=== PATIENT | male | born 1945 | race Caucasian/White ===

== ENCOUNTER → 2016-07-22 | Outpatient (CLI) | payer MEDICARE, BC ==
[2016-07-22 10:57] LABS: ALT 34 U/L (21-72); AST 24 U/L (17-59); Cholesterol 194 mg/dL (<200); Creatine Kinase 57 U/L (55-170); HDL Cholesterol 41 mg/dL (40-60); Triglycerides 383 mg/dL (<150)
== END | disposition home or self-care (01) ==
LOC: LABWHC1 09:44
PROVIDERS: ATTEND Internal Medicine Cardiovascular Disease
DX: E78.2 Mixed hyperlipidemia (principal)
CPT/HCPCS: 36415; 80061; 82550; 84450; 84460

== ENCOUNTER → 2016-08-12 | Outpatient (CLI) | payer MEDICARE, BC ==
--- NOTE | 2016-08-12 16:12 | US ---
EXAMINATION TYPE: US kidneys/renal and bladder DATE OF EXAM: 08/12/2016 2:54 PM COMPARISON: US on PACS CLINICAL HISTORY: N17.9 ACUTE KIDNEY FAILURE. Abnormal bloodwork EXAM MEASUREMENTS: Right Kidney: 11.7 x 6.2 x 5.3 cm cm Left Kidney: 11.4 x 5.9 x 5.8 cm cm Post Void Residual Volume: bladder not filled for exam mL TECHNOLOGIST IMPRESSION: wnl Right Kidney: decreased renal cortex Left Kidney: decreased renal cortex, upper pole cyst = 1.2 x 1.0 x 1.1 cm Bladder: not filled for exam. Not seen Bilateral Jets seen: no 2 splenic cysts noted 0.8 cm and 0.6 cm There is no evidence for hydronephrosis at this point in time. No nephrolithiasis is seen. No brittani s are identified. The urinary bladder is anechoic. Bilateral ureteral jets are seen. Note is made of lobation, a normal variant. IMPRESSION: 1. Small upper pole left renal cortical cyst. 2. Splenic cyst. 3. Somewhat limited urinary bladder evaluation.
== END | disposition home or self-care (01) ==
LOC: RADUSWWP 14:28
PROVIDERS: ATTEND Family Medicine
DX: N28.1 Cyst of kidney, acquired (principal); D73.4 Cyst of spleen
CPT/HCPCS: 76770

== ENCOUNTER 2016-08-15 13:57 | Inpatient (IN) | payer MEDICARE, BC ==
[2016-08-15] MEDS ORDERED: SODIUM CHLORIDE 0.9% 1,000 ML IV STA (16:13)
[2016-08-15] MEDS ORDERED: ONDANSETRON 4 MG/2 ML VIAL IVP STA (16:13)
--- NOTE | 2016-08-15 16:19 | ED ---
Weakness HPI - General Chief complaint: Weakness Stated complaint: Weak/Not eating Time Seen by Provider: 08/15/16 15:56 Source: patient, family, RN notes reviewed Mode of arrival: ambulatory Limitations: no limitations - History of Present Illness Initial comments: She is a 70-year-old male with chief complaint of weakness. Patient reports that he has been feeling weak for the past few months. He also reports that he has not been wanting to eat. Patient reports that since he has had approximately 50 pound weight loss due to the fact that he has no appetite. He reports that there is no pain with eating however he just feels nauseated and does not like the taste of food. Patient reports that he has medical history significant for bipolar disorder, high blood pressure. Patient reports that he hasn't no pain at this time. Patient denies any pain with eating. He reports that the last time he ate was a few days ago and was able to hold on a pork chop. Patient reports that he had a small bowel movement after eating that. Patient reports that for the past few days and weeks he is only been able to tolerate liquid diet which includes boost and fruit juices. Patient reports that he in general feels extremely fatigued and weak. He reports that he is able to ambulate. Patient denies any recent fever, chills, shortness of breath, chest pain, back pain, abdominal pain, dysuria or hematuria, constipation or diarrhea, headaches or visual changes, or any other current symptoms - Related Data Home Medications Medication Instructions Recorded Confirmed Aspirin 325 mg PO DAILY 09/20/15 08/15/16 Olmesartan/Hydrochlorothiazide 1 tab PO DAILY 09/20/15 08/15/16 [Benicar Hct 40-12.5 mg Tablet] ARIPiprazole [Abilify] 10 mg PO HS 08/15/16 08/15/16 Divalproex ER [Depakote ER] 1,000 mg PO HS 08/15/16 08/15/16 Mirabegron [Myrbetriq] 50 mg PO DAILY 08/15/16 08/15/16 [place]-3 Fatty Acids/Fish Oil [Fish 2 cap PO DAILY 08/15/16 08/15/16 Oil 1,000 mg Softgel] Simvastatin [Zocor] 40 mg PO HS 02/03/17 02/03/17 Allergies Allergy/AdvReac Type Severity Reaction Status Date / Time donepezil [From Aricept] AdvReac Unknown Verified 08/15/16 16:22 Review of Systems ROS Statement: Those systems with pertinent positive or pertinent negative responses have been documented in the HPI. ROS Other: All systems not noted in ROS Statement are negative. Past Medical History Past Medical History: Diabetes Mellitus, Hyperlipidemia, Hypertension History of Any Multi-Drug Resistant Organisms: None Reported Past Surgical History: Hernia Repair, Joint Replacement, Orthopedic Surgery Additional Past Surgical History / Comment(s): nasal, bilateral knee Past Psychological History: Anxiety, Depression Smoking Status: Former smoker Past Alcohol Use History: None Reported Past Drug Use History: None Reported General Exam - General Exam Comments Initial Comments: Patient is a pleasant 70-year-old male. He is on appear to be in any acute distress. Limitations: no limitations General appearance: alert, in no apparent distress Head exam: Present: atraumatic, normocephalic, normal inspection Eye exam: Present: normal appearance, PERRL, EOMI. Absent: scleral icterus, conjunctival injection, periorbital swelling ENT exam: Present: normal exam, mucous membranes moist Neck exam: Present: normal inspection. Absent: tenderness, meningismus, lymphadenopathy Respiratory exam: Present: normal lung sounds bilaterally. Absent: respiratory distress, wheezes, rales, rhonchi, stridor Cardiovascular Exam: Present: regular rate, normal rhythm, normal heart sounds. Absent: systolic murmur, diastolic murmur, rubs, gallop, clicks GI/Abdominal exam: Present: soft, tenderness (mild lower quadrant tenderness ), normal bowel sounds. Absent: distended, guarding, rebound, rigid Extremities exam: Present: normal inspection, full ROM, normal capillary refill. Absent: tenderness, pedal edema, joint swelling, calf tenderness Back exam: Present: normal inspection Neurological exam: Present: alert, oriented X3, CN II-XII intact Psychiatric exam: Present: normal affect, normal mood Skin exam: Present: warm, dry, intact, normal color. Absent: rash Course Vital Signs 08/15/16 08/15/16 08/15/16 15:37 16:54 17:54 Temperature 97.0 F L Pulse Rate 53 L 58 L 52 L Respiratory 17 18 Rate Blood Pressure 119/56 116/58 O2 Sat by Pulse 96 98 Oximetry 08/15/16 18:04 Temperature Pulse Rate 54 L Respiratory Rate Blood Pressure O2 Sat by Pulse Oximetry EKG Findings - EKG Comments: EKG Findings:: EKG shows sinus bradycardia ventricular rate is 47 bpm. DE interval 192 ms. QRS duration 100 ms. QT/QTc is 428/[address] elevation or T-wave inversion. Medical Decision Making - Medical Decision Making Patient is a 70-year-old male with chief complaint of weakness and fatigue for the past 3 months. Patient reports has not been able to eat anything due to poor appetite. Patient reports she's lost approximately 50 pounds. He denies any pain with eating. He reports that sometimes when he is due to the lack of appetite he has vomited. Patient denies any history of GERD. Patient's lab reveal elevated potassium at 6.1. BUN 118 creatinine is 3.96. Magnesium 2.4. These are all dramatically elevated in the past 2 weeks from his previous lab work. Patient will be started on 30mg Kayexalate by mouth as well as albuterol breathing treatment her hyperkalemia. Patient will also be rehydrated with 2 L of normal saline and placed on a maintenance rate. Patient will be admitted at this time and consults to nephrology for acute kidney injury. I discussed the case with Dr. Carlson, who discussed this work which the nurse practitioner he'll be admitted for Dr. Truong. Patient will be admitted to Dr. Truong and consults with Dr. Christianson. - Lab Data Result diagrams: 08/15/16 16:46 08/15/16 16:46 Lab Results 08/15/16 08/15/16 08/15/16 Range/Units 16:46 16:46 16:46 WBC 5.3 (3.8-10.6) k/uL RBC 3.92 L (4.30-5.90) m/uL Hgb 12.0 L (13.0-17.5) gm/dL Hct 35.8 L (39.0-53.0) % MCV 91.2 (80.0-100.0) fL MCH 30.6 (25.0-35.0) pg MCHC 33.5 (31.0-37.0) g/dL RDW 12.5 (11.5-15.5) % Plt Count 103 L (150-450) k/uL Neutrophils % 73 % Lymphocytes % 19 % Monocytes % 5 % Eosinophils % 1 % Basophils % 0 % Neutrophils # 3.9 (1.3-7.7) k/uL Lymphocytes # 1.0 (1.0-4.8) k/uL Monocytes # 0.3 (0-1.0) k/uL Eosinophils # 0.1 (0-0.7) k/uL Basophils # 0.0 (0-0.2) k/uL PT (9.0-12.0) sec INR (<1.1) APTT (22.0-30.0) sec Sodium 140 (137-145) mmol/L Potassium 6.1 H (3.5-5.1) mmol/L Chloride 101 (98-107) mmol/L Carbon Dioxide 26 (22-30) mmol/L Anion Gap 13 mmol/L BUN 118 H* (9-20) mg/dL Creatinine 3.96 H (0.66-1.25) mg/dL Est GFR (MDRD) Af Amer 18 (>60 ml/min/1.73 sqM) Est GFR (MDRD) Non-Af 15 (>60 ml/min/1.73 sqM) Glucose 88 (74-99) mg/dL Calcium 9.6 (8.4-10.2) mg/dL Phosphorus 4.5 (2.5-4.5) mg/dL Magnesium 2.4 H (1.6-2.3) mg/dL Total Bilirubin 0.7 (0.2-1.3) mg/dL AST 25 (17-59) U/L ALT 30 (21-72) U/L Alkaline Phosphatase 52 (38-126) U/L Total Creatine Kinase 46 L (55-170) U/L CK-MB (CK-2) 1.0 (0.0-2.4) ng/mL CK-MB (CK-2) Rel Index 2.2 Troponin I <0.012 (0.000-0.034) ng/mL NT-Pro-B Natriuret Pep pg/mL Total Protein 6.9 (6.3-8.2) g/dL Albumin 4.1 (3.5-5.0) g/dL Lipase 97 (23-300) U/L 08/15/16 08/15/16 Range/Units 16:46 16:46 WBC (3.8-10.6) k/uL RBC (4.30-5.90) m/uL Hgb (13.0-17.5) gm/dL Hct (39.0-53.0) % MCV (80.0-100.0) fL MCH (25.0-35.0) pg MCHC (31.0-37.0) g/dL RDW (11.5-15.5) % Plt Count (150-450) k/uL Neutrophils % % Lymphocytes % % Monocytes % % Eosinophils % % Basophils % % Neutrophils # (1.3-7.7) k/uL Lymphocytes # (1.0-4.8) k/uL Monocytes # (0-1.0) k/uL Eosinophils # (0-0.7) k/uL Basophils # (0-0.2) k/uL PT 10.7 (9.0-12.0) sec INR 1.1 (<1.1) APTT 22.7 (22.0-30.0) sec Sodium (137-145) mmol/L Potassium (3.5-5.1) mmol/L Chloride (98-107) mmol/L Carbon Dioxide (22-30) mmol/L Anion Gap mmol/L BUN (9-20) mg/dL Creatinine (0.66-1.25) mg/dL Est GFR (MDRD) Af Amer (>60 ml/min/1.73 sqM) Est GFR (MDRD) Non-Af (>60 ml/min/1.73 sqM) Glucose (74-99) mg/dL Calcium (8.4-10.2) mg/dL Phosphorus (2.5-4.5) mg/dL Magnesium (1.6-2.3) mg/dL Total Bilirubin (0.2-1.3) mg/dL AST (17-59) U/L ALT (21-72) U/L Alkaline Phosphatase (38-126) U/L Total Creatine Kinase (55-170) U/L CK-MB (CK-2) (0.0-2.4) ng/mL CK-MB (CK-2) Rel Index Troponin I (0.000-0.034) ng/mL NT-Pro-B Natriuret Pep 153 pg/mL Total Protein (6.3-8.2) g/dL Albumin (3.5-5.0) g/dL Lipase (23-300) U/L - Radiology Data Radiology results: report reviewed KUB and chest x-ray showed no evidence of any acute abnormalities. These were read by Dr. Peña. Disposition Clinical Impression: Bradycardia, Hyperkalemia, Acute kidney failure, Weakness Disposition: ADMITTED IP TO THIS HOSP Condition: Stable Time of Disposition: 18:18
[2016-08-15 17:01] LABS: Basophils % (A) 0 %; CH 31.1; CHCM 34.2; Eosinophils # (A) 0.1 k/uL (0-0.7); Eosinophils % (A) 1 %; HCT 35.8 % (39.0-53.0); HDW 2.65; Luc % (Auto) 2; Lymphocytes % (A) 19 %; MCH 30.6 pg (25.0-35.0); MCHC 33.5 g/dL (31.0-37.0); MCV 91.2 fL (80.0-100.0); Mean Platelet Volume 8.5; Monocytes # (A) 0.3 k/uL (0-1.0); Monocytes % (A) 5 %; Neutrophils # (A) 3.9 k/uL (1.3-7.7); Neutrophils % (A) 73 %; RBC 3.92 m/uL (4.30-5.90); RDW 12.5 % (11.5-15.5); WBC 5.3 k/uL (3.8-10.6); WBC (Perox) 5.48
[2016-08-15 17:07] LABS: INR 1.1 (<1.1); Partial Thromboplastin Time 22.7 sec (22.0-30.0); Prothrombin Time 10.7 sec (9.0-12.0)
[2016-08-15 17:12] LABS: Calcium 9.6 mg/dL (8.4-10.2); Magnesium 2.4 mg/dL (1.6-2.3); Phosphorous 4.5 mg/dL (2.5-4.5); Potassium 6.1 mmol/L (3.5-5.1); Total Bilirubin 0.7 mg/dL (0.2-1.3); Total Protein 6.9 g/dL (6.3-8.2)
[2016-08-15] MEDS ORDERED: SODIUM POLYSTYRENE SULFONATE 15 GM/60 ML BOTTLE PO STA ×2 (17:18→18:07)
[2016-08-15] MEDS ORDERED: SODIUM CHLORIDE 0.9% 1,000 ML IV ONE (17:19)
[2016-08-15] MEDS ORDERED: ALBUTEROL NEBULIZED 2.5 MG/3 ML INHALATION STA (17:19)
[2016-08-15 17:25] LABS: Creatine Kinase 46 U/L (55-170)
[2016-08-15 17:38] LABS: Troponin I <0.012 ng/mL (0.000-0.034)
[2016-08-15] MEDS ORDERED: HYDROmorphone 1 MG/ML 1 ML SYRINGE IV PRN (17:55)
[2016-08-15] MEDS ORDERED: ALBUTEROL NEB (CONC) 2.5 MG/0.5 ML INHALATION ONE (17:55)
[2016-08-15] MEDS ORDERED: NALOXONE 0.4 MG/ML 1 ML VIAL IV PRN (17:55)
--- NOTE | 2016-08-15 18:11 | XR ---
EXAMINATION TYPE: XR chest 2V DATE OF EXAM: 08/15/2016 5:23 PM COMPARISON: November 29, 2015 HISTORY: Generalized weakness with weight loss TECHNIQUE: Frontal and lateral views of the chest are obtained. FINDINGS: There is scattered nonspecific opacities but no definite focal air space opacity. There is no pleural effusion or pneumothorax seen. The cardiac silhouette size is within normal limi ts. The osseous structures are intact. IMPRESSION: No acute cardiopulmonary process.
--- NOTE | 2016-08-15 18:13 | XR ---
EXAMINATION TYPE: XR KUB DATE OF EXAM: 08/15/2016 5:23 PM COMPARISON: NONE HISTORY: Weakness and weight loss TECHNIQUE: Two standing upright APviews FINDINGS: No bowel obstruction. No pneumatosis or pneumoperitoneum. No evident mass or mass effect. S keletal structures are unremarkable for acute process. The visualized lung bases and pleural spaces are negative. IMPRESSION: No acute radiographic process.
[2016-08-15] MEDS: SODIUM CHLORIDE 0.9% 1,000 ML IV SCH (18:20)
[2016-08-15 21:55] VITALS: BMI 32.9
[2016-08-15] MEDS: ONDANSETRON 4 MG/2 ML VIAL IVP SCH (22:08)
[2016-08-15] MEDS: DIVALPROEX ER 500 MG TAB.ER.24H PO SCH (22:09)
[2016-08-15] MEDS: ATORVASTATIN 20 MG TAB PO SCH (22:09)
[2016-08-15] MEDS: ARIPiprazole 10 MG TAB PO SCH (22:09)
[2016-08-16 02:24] LABS: Appearance,Urine Clear (Clear); Bilirubin,Urine Negative (Negative); Glucose,Urine (UA) Negative (Negative); Ketones,Urine Trace (Negative); Leukocyte Esterase,Urine Negative (Negative); Nitrite,Urine Negative (Negative); Protein,Urine Negative (Negative); Specific Gravity,Urine 1.014 (1.001-1.035); UA Billing (MACRO vs. MICRO) CHEM; Urobilinogen,Urine <2.0 mg/dL (<2.0)
[2016-08-16] MEDS: ONDANSETRON 4 MG/2 ML VIAL IVP SCH ×4 (06:06→17:49)
[2016-08-16] MEDS: SODIUM CHLORIDE 0.9% 1,000 ML IV SCH ×2 (06:06→17:49)
[2016-08-16 07:17] LABS: Calcium 8.6 mg/dL (8.4-10.2); Magnesium 2.2 mg/dL (1.6-2.3); Potassium 4.9 mmol/L (3.5-5.1)
[2016-08-16] MEDS: HYDROCHLOROTHIAZIDE 12.5 MG CAP PO SCH (08:14)
[2016-08-16] MEDS: OXYBUTYNIN 10 MG TAB.ER.24 PO SCH (08:14)
[2016-08-16] MEDS: ENOXAPARIN 30 MG/0.3 ML SYRINGE SQ SCH (08:15)
[2016-08-16] MEDS: PANTOPRAZOLE 40 MG/10 ML VIAL IV SCH (08:15)
[2016-08-16] MEDS: ASPIRIN 325 MG TAB PO SCH (08:15)
[2016-08-16] MEDS ORDERED: NON-FORMULARY DRUG (Omega-3 Fatty Acids/Fish Oil [Fish Oil 1,000 Mg Softgel] 2 CAP) PO SCH (09:00)
[2016-08-16] MEDS ORDERED: LOSARTAN 50 MG TAB PO SCH (09:00)
--- NOTE | 2016-08-16 11:28 | CONS ---
DATE OF CONSULTATION: REASON FOR CONSULTATION: Renal failure. HISTORY OF PRESENT ILLNESS: Patient is a 70-year-old white male who is hard of hearing. He has a history of hypertension, dyslipidemia, who was complaining of weakness going on for a few days. Patient had not been eating much. He had significant weight loss as well. He denied any prior history of kidney disease. Patient did admit to use of Motrin for arthritis prior to admission. Serum creatinine was at 3.96 mg/dL. Currently patient is maintained on IV fluids. His creatinine is down to 2.98. Review of previous labs shows a creatinine of 2.5 on 07/30/2016 and in October 2015 his serum creatinine was at 1.14. The patient was also hyperkalemic with a potassium of 6.1, which is now down to 4.9. He has been voiding clear yellow urine. Urinalysis is quite unremarkable. PAST MEDICAL HISTORY: Hypertension, dyslipidemia, diabetes, osteoarthritis, depression. PAST SURGICAL HISTORY: Hernia repair, knee arthroplasty. SOCIAL HISTORY: The patient is a former smoker. No history of drug abuse or alcohol abuse. REVIEW OF SYSTEMS: As per HPI. Other systems negative. Medications at home included: Benicar, hydrochlorothiazide, Abilify, Depakote, Zocor, omega-3 fatty acids/fish oil. ALLERGIES INCLUDE ARICEPT. On examination, the patient is comfortable, awake. He is not in any acute distress. He is hard of hearing blood pressure is 131/56, heart rate 51 per minute. He is afebrile. Examination of the heart S1 and S2. Examination of the lungs: Bilateral breath sounds are heard. Abdomen is soft, nontender. Examination of lower extremities shows no evidence of edema. SUPERVISOR ENGINE ASSEMBLY exam is grossly intact. Patient is moving all 4 extremities. Labs show sodium 143, potassium 4.9, BUN 100, serum creatinine 2.98. Hemoglobin 12.0 g/dL. UA shows trace ketones. Chest x-ray is unremarkable. ASSESSMENT: 1. Acute kidney injury, prerenal, currently improving with IV hydration. No evidence of obstructive uropathy. An ultrasound of the kidneys will be ordered as well. Patient is advised to avoid the use of Motrin which definitely contributed to the worsening of his renal function. Hold off on ALHAJI inhibitors for now. I will hold Cozaar. We can likely resume it at the time of discharge if renal function is normal. 2. Hyperkalemia associated with acute kidney injury and use of ALHAJI inhibitor and NSAIDs in the form of Motrin, currently improved. Discontinue Cozaar for now. Repeat labs in the a.m. continue IV fluids. 3. Hypertension, currently fairly well controlled. 4. Dyslipidemia. PLAN: Hold Cozaar, continue IV fluids. Check ultrasound of the kidneys and repeat labs in the a.m. Thank you for this consultation. Will continue to follow the patient with you during his hospitalization.
[2016-08-16] MEDS: ACETAMINOPHEN TAB 325 MG TAB PO PRN (13:48)
--- NOTE | 2016-08-16 19:46 | HP ---
DATE OF ADMISSION: 08/15/2016 CHIEF COMPLAINT: Decreased appetite and generalized weakness. HISTORY OF PRESENT ILLNESS: Mr. Rivas is a 70-year-old male with a past medical history of hypertension, dyslipidemia, diabetes mellitus, coming into the hospital complaining of generalized weakness that has been going on since a few months. As per his , she states that he has not been eating or drinking well for the past 3 months and for the past 2 weeks he has been only eating half a piece of toast and hardly drinking anything and progressively his weakness has worsened and so she brought in to the hospital for further evaluation. Patient had a fall a few months back and injured his coccyx for which he has been taking Motrin and Tylenol on and off. The patient denies having any complaints of urinary tract infection. No increased frequency, dysuria or hematuria. Denies having any abdominal pain, nausea, vomiting, or diarrhea. As per his , the patient's gait has been changing and also he has been having tremors for the past few weeks which have been worsened. Patient also lost a few pound in the past 13 months but he could not find out how much he lost. At the time of admission, the patient blood work done showing an elevated creatinine at 3.96 and his last ( ) one year back was in the range of 1.14. He also had hyperkalemia of potassium level of 6.1. Patient had been given IV fluids and his BUN and creatinine trended down as well as his potassium. Nephrology and Dr. Christianson is on board and following the patient. REVIEW OF SYSTEMS: All 13 review of systems are done and negative except for the ones mention bowel. Past medical history is significant for hypertension, dyslipidemia, diabetes mellitus, depression, osteoarthritis. PAST SURGICAL HISTORY: Hernia repair, knee arthroplasty. ALLERGIES: DONEPEZIL. Patient's home medications: 1. Benicar 40/12.5, 1 tablet p.o. daily. 2. Aspirin 320 mg p.o. daily. 3. Miribichrone 50 mg p.o. daily. 4. Abilify 10 mg p.o. q.h.s. 5. Depakote 1000 mg p.o. q.h.s. 6. [place]-3 fatty acids 2 capsules p.o. daily. 7. Zocor 40 mg p.o. q.h.s. SOCIAL HISTORY: Former smoker. Occasional alcohol. FAMILY HISTORY: No family history of Parkinson disease. Family history positive for hypertension and diabetes. On examination, patient's vital signs temperature 98.1, heart rate 50 to 55 respiratory rate 16, blood pressure 136/70, saturating at 96% on room air. GENERAL EXAMINATION: Elderly female, lying in bed, appears to be in no acute distress. HEAD: Atraumatic, nontraumatic. EYES: Pupils round and reactive to light. NECK: No JVD. No thyromegaly. CARDIOVASCULAR: S1, S2 heard. No additional sounds. LUNGS: Bilateral breath sounds are positive. No wheezes or crackles. ABDOMEN: Soft, nontender. Bowel sounds positive. EXTREMITIES: No edema. No cyanosis, no clubbing. Peripheral pulses are felt. BUSINESS CONTROLLER: Alert, awake, oriented x3. The patient has some intentional tremors. When I made him write his name, he could not write his name. The patient is hard of hearing. No focal or neurological deficits noticed. SKIN: No rashes. MUSCULOSKELETAL: No joint swelling or deformity. PSYCHIATRIC: Appropriate mood and affect. Patient's labs: White count of 5.3, hemoglobin is 12, platelets of 103. Sodium 142, potassium 4.9, chloride 109, bicarb 21, BUN 100, creatinine 2.98. Urine shows trace ketones. Patient had a chest x-ray showing no acute cardiopulmonary process. KUB showing no acute radiographic process. ASSESSMENT AND PLAN: 1. Acute kidney injury, most likely prerenal and we will continue with IV hydration. Creatinine is improving and avoid nephrotoxins and advised to discontinue Motrin use and hold ALHAJI inhibitors for now. 2. Hyperkalemia secondary to acute kidney injury. 3. Gait abnormality with tremors most likely patient needs to be worked up for Parkinson's disease as outpatient. 4. Hypertension. 5. Dyslipidemia. 6. History of anxiety/depression unspecified. PLAN: The plan is to continue the patient on IV fluids. Avoid nephrotoxins. Continue with the rest of his home medications. The treatment care plan was discussed in detail with the patient and the family and his who was at the bedside and further recommendations to follow depending on the progress of the patient.
[2016-08-16] MEDS: ARIPiprazole 10 MG TAB PO SCH (21:12)
[2016-08-16] MEDS: DIVALPROEX ER 500 MG TAB.ER.24H PO SCH (21:12)
[2016-08-16] MEDS: ATORVASTATIN 20 MG TAB PO SCH (21:12)
[2016-08-17] MEDS: SODIUM CHLORIDE 0.9% 1,000 ML IV SCH ×3 (00:15→12:18)
[2016-08-17] MEDS: ONDANSETRON 4 MG/2 ML VIAL IVP SCH ×5 (00:16→23:54)
[2016-08-17 06:47] LABS: Calcium 8.9 mg/dL (8.4-10.2); Potassium 5.1 mmol/L (3.5-5.1)
[2016-08-17] MEDS: ENOXAPARIN 30 MG/0.3 ML SYRINGE SQ SCH (08:21)
[2016-08-17] MEDS: OXYBUTYNIN 10 MG TAB.ER.24 PO SCH (08:21)
[2016-08-17] MEDS: ASPIRIN 325 MG TAB PO SCH (08:21)
[2016-08-17] MEDS: ACETAMINOPHEN TAB 325 MG TAB PO PRN ×2 (08:31→14:56)
--- NOTE | 2016-08-17 10:14 | PN ---
Patient is seen for follow-up for acute kidney injury. He was admitted to the hospital with decreased oral intake not feeling well, weakness. He is maintained on IV fluids. His renal function has improved with serum creatinine going down from 3.9 to 1.9 mg/dL today. Patient was also hyperkalemic and his potassium is now at 5.1. He has had good urine output. On examination, blood pressure is 131/63, heart rate 53 per minute. He is afebrile. Examination of the heart S1 and S2. Examination of the lungs: Bilateral breath sounds are heard. Abdomen is soft, nontender. Examination of lower extremities shows no significant edema. DIRECTOR COMMUNITY ORGANIZATION exam is grossly intact. Patient is moving all 4 extremities. Labs show sodium of 146, potassium 5.1, BUN 54, serum creatinine 1.9. Hemoglobin 12.0 g/dL. ASSESSMENT: 1. Acute kidney injury and prerenal, currently improving. Urinalysis is completely benign. 2. Hyperkalemia associated with acute kidney injury, currently improved. 3. Hypertension, controlled. 4. Dyslipidemia. PLAN: Continue to hold off on angiotensin receptor blockers and ALHAJI inhibitors. I will decrease the IV fluids. Repeat labs in a.m.
[2016-08-17] MEDS: PANTOPRAZOLE 40 MG/10 ML VIAL IV SCH (12:18)
[2016-08-17] MEDS: HYDROCHLOROTHIAZIDE 12.5 MG CAP PO SCH (17:14)
[2016-08-17] MEDS: DIVALPROEX ER 500 MG TAB.ER.24H PO SCH (21:56)
[2016-08-17] MEDS: ATORVASTATIN 20 MG TAB PO SCH (21:57)
[2016-08-17] MEDS: ARIPiprazole 10 MG TAB PO SCH (21:57)
[2016-08-18 05:51] LABS: Basophils % (A) 1 %; CH 30.5; CHCM 32.2; Eosinophils # (A) 0.2 k/uL (0-0.7); Eosinophils % (A) 4 %; HDW 2.67; HGB 10.4 gm/dL (13.0-17.5); Luc # (Auto) 0.09; Luc % (Auto) 2; Lymphocytes # (A) 1.5 k/uL (1.0-4.8); Lymphocytes % (A) 33 %; MCH 30.8 pg (25.0-35.0); MCHC 32.4 g/dL (31.0-37.0); MCV 95.2 fL (80.0-100.0); Mean Platelet Volume 7.2; Monocytes # (A) 0.3 k/uL (0-1.0); Monocytes % (A) 6 %; Neutrophils # (A) 2.4 k/uL (1.3-7.7); Neutrophils % (A) 54 %; RBC 3.36 m/uL (4.30-5.90); RDW 12.7 % (11.5-15.5); WBC 4.4 k/uL (3.8-10.6); WBC (Perox) 4.56
[2016-08-18] MEDS: ONDANSETRON 4 MG/2 ML VIAL IVP SCH ×3 (05:51→17:57)
[2016-08-18] MEDS: SODIUM CHLORIDE 0.9% 1,000 ML IV SCH (05:52)
[2016-08-18 05:56] LABS: Anion Gap 11 mmol/L; Blood Urea Nitrogen 31 mg/dL (9-20); Calcium 8.6 mg/dL (8.4-10.2); Carbon Dioxide 22 mmol/L (22-30); Chloride 112 mmol/L (98-107); Glucose 85 mg/dL (74-99); Non-African American GFR(MDRD) 50 (>60 ml/min/1.73 sqM); Potassium 4.6 mmol/L (3.5-5.1); Sodium 145 mmol/L (137-145)
[2016-08-18 06:41] LABS: Manual Review Performed
[2016-08-18] MEDS: OXYBUTYNIN 10 MG TAB.ER.24 PO SCH (08:35)
[2016-08-18] MEDS: PANTOPRAZOLE 40 MG/10 ML VIAL IV SCH (08:36)
[2016-08-18] MEDS: HYDROCHLOROTHIAZIDE 12.5 MG CAP PO SCH (08:36)
[2016-08-18] MEDS: ENOXAPARIN 30 MG/0.3 ML SYRINGE SQ SCH (08:36)
[2016-08-18] MEDS: ASPIRIN 325 MG TAB PO SCH (08:36)
[2016-08-18] MEDS: ACETAMINOPHEN TAB 325 MG TAB PO PRN ×2 (11:10→17:59)
--- NOTE | 2016-08-18 12:43 | PN ---
INTERVAL HISTORY: Mr. Rivas is a 70-year-old male with a past medical history of hypertension, dyslipidemia, diabetes mellitus, admitted to the hospital with a chief complaint of generalized weakness which has been ongoing for a few months. At the time of admission, the patient's creatinine was found to be high and he is currently being treated for acute kidney injury. Today the patient is lying in his bed, appears to be in no acute distress. He states that he feels much better than when he came in. His is at the bedside and states that he ate much of his lunch and dinner, which is a change from when he was at home, as he had lost his appetite. REVIEW OF SYSTEMS: CONSTITUTIONAL: He denies having any fever, chills or rigors, states that his weakness has improved and his appetite has improved. CARDIAC: No chest pain. No palpitations. RESPIRATIONS: No cough. No difficulty in breathing. GI: No abdominal pain, nausea, vomiting or diarrhea. Patient's medications have been reviewed. He is on: 1. Tylenol. 2. Abilify. 3. Aspirin. 4. Lipitor. 5. Depakote. 6. Lovenox. 7. Hydrochlorothiazide. 8. Dilaudid. 9. Narcan. 10. Zofran. 11. Oxybutynin. 12. Protonix and 13. Normal saline at 50 mL. VITAL SIGNS ON EXAMINATION: Temperature is 98.4, heart rate is between of 40s and 60s, respiratory rate 16, blood pressure 172/74, saturating at 96% on room air. Patient is an elderly male lying in bed, appears to be no acute distress. HEAD: Atraumatic, no clubbing. EYES: Pupils round and reactive to light. NECK: No JVD. No thyromegaly. S1 and S2 heard. LUNGS: Bilateral breath sounds are positive. No wheeze or crackles. ABDOMEN: Soft, nontender. Bowel sounds positive. EXTREMITIES: No edema. No cyanosis. No clubbing. ASSISTANT SALES CENTER MANAGER: Alert, awake, oriented x3. No focal deficits, but patient has been intentional tremors. SKIN: No rash. MUSCULOSKELETAL: No joint swelling or deformity. PSYCHIATRIC: Appropriate mood and affect. Patient's labs: Sodium 146, potassium ( ), chloride 111, bicarb 24, BUN 54, creatinine 1.90. ASSESSMENT AND PLAN: 1. Acute kidney injury, most likely prerenal in origin. Patient's creatinine has been trending down. Will avoid nephrotoxins. 2. Hyperkalemia secondary to acute kidney injury, resolving. 3. Gait abnormality with tremors. Most likely patient needs to be evaluated for Parkinson disease as outpatient. 4. Hypertension. 5. Dyslipidemia. 6. History of anxiety/depression, unspecified. PLAN: The plan is to continue the patient on IV fluids, avoid nephrotoxins. Continue with the rest of his home medication regimen. As the patient has been debilitated for the past few weeks, will consult PT-OT and also have community mental health social worker involved for possible rehab placement. Further recommendations to follow, depending on the progress of the patient.
--- NOTE | 2016-08-18 19:53 | PN ---
The patient is seen for follow-up for acute kidney injury, which was mainly prerenal. He is maintained on IV fluids. Renal function has improved significantly. On examination, blood pressure 162/80, heart rate is noted to be lower at 45 to 38 beats per minute. He is afebrile. Examination of the heart S1 and S2. Examination of the lungs, bilateral breath sounds are heard. Abdomen is soft, nontender. Examination of lower extremities shows no significant edema. SUPERVISOR MODEL MAKING exam is grossly intact. Labs show sodium 145, potassium 4.6, BUN 31, serum creatinine 1.4, hemoglobin 10.4 g/dL. ASSESSMENT: 1. Acute kidney injury, prerenal, currently significantly improved. I will Hep-Lock the IV fluids. Continue to encourage increased oral intake. 2. Hyperkalemia secondary to acute kidney injury, now resolved. 3. Bradycardia, no medications noted to cause bradycardia. Recommend cardiology consultation. 4. Hypertension. Expect further improvement in blood pressure with discontinuation of saline. 5. Dyslipidemia. PLAN: Recommend cardiology consultation for bradycardia. Continue off of ALHAJI inhibitors or angiotensin receptor blockers. Stop IV fluids.
--- NOTE | 2016-08-18 22:45 | PN ---
INTERVAL HISTORY: Mr. Rivas is a 70-year-old male with a past medical history of hypertension, dyslipidemia, diabetes mellitus, admitted to the hospital with the chief complaint of generalized weakness that has been ongoing for the past few months. At the time of admission, the patient's creatinine was found to be very high, and he is being treated for it with IV fluids. His creatinine has been trending down. Currently the patient is lying in bed. Appears to be in no acute distress. He states that he feels much better and his appetite has come back. Currently he has a meal tray and states that he is hungry and wants to eat. REVIEW OF SYSTEMS: CONSTITUTIONAL: Denies having any fevers, chills or rigors. RESPIRATORY: No cough. No difficulty in breathing. CARDIAC: No chest pain or palpitation. GI: No abdominal pain, nausea, vomiting or diarrhea. : No dysuria or hematuria. Patient's medications have been reviewed. On examination, patient's vital signs are temperature 98, heart rate 40s to 60s, respiratory rate 16, blood pressure 143/65. Saturating at 98% on room air. GENERAL EXAMINATION: Patient appears to be in no acute distress. HEAD: Atraumatic, normocephalic. EYES: Pupils round and reactive to light. NECK: No JVD. No thyromegaly. CARDIOVASCULAR: S1, S2 heard. LUNGS: Bilateral breath sounds are positive. No wheeze or crackles. ABDOMEN: Soft, nontender. Bowel sounds positive. EXTREMITIES: No edema. No cyanosis. No clubbing. NUTRITIONAL YEAST SUPERVISOR: Alert, awake, oriented x3. No focal neurological deficits. PSYCHIATRIC: Appropriate mood and affect. MUSCULOSKELETAL: No joint swelling or deformities. PATIENT'S LABS: White count of 4.4, hemoglobin 10.4, platelets 87. Sodium 145, potassium 4.6, chloride 112, bicarb 22. BUN 31, creatinine 1.40. ASSESSMENT AND PLAN: 1. Acute kidney injury, most likely prerenal in origin. Continue the patient on IV fluids and avoid nephrotoxins. 2. Hyperkalemia secondary to #1 as a distress. 3. Gait abnormalities with tremors. Most likely patient needs evaluation for Parkinson's disease as outpatient. 4. Hypertension. 5. Dyslipidemia. 6. History of anxiety/depression, unspecified. PLAN: The plan is to continue with the current medication regimen. Consult PT, OT. Possible rehab placement. Further recommendations depending on the progress of the patient.
[2016-08-18] MEDS: ARIPiprazole 10 MG TAB PO SCH (23:34)
[2016-08-18] MEDS: ATORVASTATIN 20 MG TAB PO SCH (23:34)
[2016-08-18] MEDS: DIVALPROEX ER 500 MG TAB.ER.24H PO SCH (23:34)
[2016-08-19] MEDS: ONDANSETRON 4 MG/2 ML VIAL IVP SCH ×3 (06:33→17:20)
[2016-08-19] MEDS: SODIUM CHLORIDE 0.9% 1,000 ML IV SCH (06:34)
[2016-08-19 07:07] LABS: Basophils % (A) 0 %; CH 30.8; CHCM 33.2; Eosinophils # (A) 0.2 k/uL (0-0.7); Eosinophils % (A) 5 %; HCT 32.1 % (39.0-53.0); HDW 2.73; HGB 10.6 gm/dL (13.0-17.5); Luc % (Auto) 2; Lymphocytes # (A) 1.3 k/uL (1.0-4.8); Lymphocytes % (A) 32 %; MCH 30.8 pg (25.0-35.0); MCV 93.4 fL (80.0-100.0); Mean Platelet Volume 7.2; Monocytes # (A) 0.2 k/uL (0-1.0); Monocytes % (A) 6 %; Neutrophils # (A) 2.2 k/uL (1.3-7.7); Neutrophils % (A) 55 %; RBC 3.44 m/uL (4.30-5.90); RDW 12.6 % (11.5-15.5); WBC 4.1 k/uL (3.8-10.6); WBC (Perox) 4.17
[2016-08-19 07:28] LABS: Potassium 4.5 mmol/L (3.5-5.1)
[2016-08-19] MEDS: HYDROCHLOROTHIAZIDE 12.5 MG CAP PO SCH (09:24)
[2016-08-19] MEDS: PANTOPRAZOLE 40 MG TABLET PO SCH (09:24)
[2016-08-19] MEDS: ENOXAPARIN 40 MG/0.4 ML SYRINGE SQ SCH (09:24)
[2016-08-19] MEDS: ASPIRIN 325 MG TAB PO SCH (09:24)
[2016-08-19] MEDS: ACETAMINOPHEN TAB 325 MG TAB PO PRN (09:24)
[2016-08-19] MEDS: OXYBUTYNIN 10 MG TAB.ER.24 PO SCH (09:25)
--- NOTE | 2016-08-19 09:55 | CONS ---
DATE OF CONSULTATION: CHIEF COMPLAINT: Bradycardia. This is a 70-year-old gentleman who is admitted to hospital with renal insufficiency. Cardiology has been consulted because of bradycardia. He has history of hypertension, diabetes, dyslipidemia, and also has sleep apnea. The patient has had history of bradycardia, but did not have any symptoms. He had a stress test done in June 2016 that revealed normal myocardial perfusion function and an echocardiogram in October 2015 that revealed normal LV systolic function. I have been asked to see him because of bradycardia that he had on this admission. I reviewed his rhythm strips meticulously. Patient has sinus bradycardia, but there is no evidence of high-grade AV block. The patient had one 4 beat run of nonsustained VT, which happened on the fourth. Patient on his initial presentation also had severe hyperkalemia with a potassium of 6.1 and also had acute onset renal failure. I believe the nonsustained VT is probably related to the dyselectrolytemia and the bradycardia is in sinus bradycardia that he has had all along, probably worsened with the hyperkalemia. He is not on any AV alexy blockers. Past medical history is significant for hypertension, diabetes, dyslipidemia, history of bradycardia, history of sleep apnea. Medications include Zocor 40 daily, Benicar, Depakote, aspirin and Abilify. ALLERGIES: ARICEPT. FAMILY HISTORY: Negative for premature coronary artery disease. SOCIAL HISTORY: Negative for current smoking, EtOH abuse or drug abuse. REVIEW OF SYSTEMS: HEENT: Unremarkable. CARDIAC: As described above. RESPIRATORY: Negative. GI: Negative. : Significant for renal failure. PSYCHOSOCIAL: Negative. ENDOCRINE: Negative. DERMATOLOGIC: Negative. CONSTITUTIONAL: Significant for exertional fatigue and not feeling well. The rest of the system review is not relevant. On exam, comfortable at rest. Vital signs are stable. Heart rate is low at 49, blood pressure is elevated at 190/90, respiratory rate is 18. There is no jugular venous distention. Carotid upstroke is normal. There is no bruit. Chest exam reveals good air entry bilaterally. Heart exam reveals first and second heart sounds. No gallop. Abdomen is soft. Exam of the extremities did not reveal edema. Peripheral pulses are felt. Labs show a hemoglobin of 10.6. Potassium is 4.5. Creatinine is 1.4. Echocardiogram in October 2015 revealed normal LV function. A stress test in June revealed normal myocardial perfusion functions. His baseline EKG shows sinus bradycardia. ASSESSMENT: 1. Asymptomatic sinus bradycardia. 2. Nonsustained ventricular tachycardia. 3. Renal insufficiency. 4. Uncontrolled hypertension. PLAN: Please control the blood pressure more optimally with adding Norvasc 10 mg daily and if necessary add hydralazine or a diuretic. The patient does not need a permanent pacemaker at this time as he does not have symptomatic bradycardia. He had one episode of syncope about 4 months ago but has since been evaluated by his primary leveling machine operator. We can discharge him home at this time and I have asked Dr. Martinez to perform a loop recorder on him and if he can document symptomatic bradycardia we can definitely consider permanent pacemaker. Thank you for allowing us to participate in the care of this pleasant gentleman.
--- NOTE | 2016-08-19 11:14 | ECHOF ---
Referral Reason:yes MEASUREMENTS -------- HEIGHT: 172.7 cm WEIGHT: 98.0 kg BP: IVSd: 1.2 cm (0.6 - 1.1) LVIDd: 4.5 cm (3.9 - 5.3) LVPWd: 1.1 cm (0.6 - 1.1) IVSs: 1.8 cm LVIDs: 2.3 cm LVPWs: 1.7 cm Ao Diam: 3.2 cm (2.0 - 3.7) AV Cusp: 2.0 cm (1.5 - 2.6) LA Diam: 3.4 cm (2.7 - 3.8) MV EXCURSION: 30.456 mm (> 18.000) MV EF SLOPE: 143 mm/s (70 - 150) EPSS: 2.2 cm MV E Boby: 0.56 m/s MV DecT: 290 ms MV A Boby: 0.79 m/s MV E/A Ratio: 0.71 RAP: 5.00 mmHg RVSP: 38.81 mmHg FINDINGS -------- Sinus rhythm. This was a technically good study. There is mild concentric left ventricular hypertrophy. Overall left ventricular systolic function is normal with, an EF between 55 - 60 %. The right ventricle is normal in size and function. The left atrium is normal in size. The right atrium is normal in size. The aortic valve is trileaflet, and appears structurally normal. No aortic stenosis or regurgitation. The mitral valve leaflets are mildly thickened. Mild mitral regurgitation is present. Mild tricuspid regurgitation present. There is mild pulmonary hypertension. The right ventricular systolic pressure, as measured by Doppler, is 38.81mmHg. Pulmonic valve appears structurally normal. The aortic root size is normal. The pericardium is normal. CONCLUSIONS -------- 1. Sinus rhythm. 2. Mild mitral regurgitation is present. 3. Mild tricuspid regurgitation present. 4. There is mild pulmonary hypertension. 5. The right ventricular systolic pressure, as measured by Doppler, is 38.81mmHg. 6. Pulmonic valve appears structurally normal. 7. The aortic root size is normal. 8. The pericardium is normal. 9. This was a technically good study. 10. There is mild concentric left ventricular hypertrophy. 11. Overall left ventricular systolic function is normal with, an EF between 55 - 60 %. 12. The right ventricle is normal in size and function. 13. The left atrium is normal in size. 14. The right atrium is normal in size. 15. The aortic valve is trileaflet, and appears structurally normal. No aortic stenosis or regurgitation. 16. The mitral valve leaflets are mildly thickened. CRITICAL CARE NURSE PRACTITIONER: Liudmila Rendon RDCS
[2016-08-19] MEDS: amLODIPine 10 MG TAB PO SCH (12:08)
[2016-08-19] MEDS: hydrALAZINE HCL 25 MG TAB PO SCH ×3 (12:08→21:56)
--- NOTE | 2016-08-19 12:18 | P.DS ---
Providers Date of admission: 08/15/16 18:07 Expected date of discharge: 08/19/16 Attending physician: Alessandro Lyon Consults: 08/19/16 08:50 Consult Physician Stat Consulting Provider: Ar Rivas Consult Reason/Comments: bradycardia Do you want consulting provider notified?: Yes Primary care physician: Alessandro Lyon Hospital Course: 70-year-old male was admitted to the emergency room with report from [facility] that patient had been refusing to eat or drink was found to be in acute kidney injury hyperkalemic patient has improved on exam this morning patient sitting at side of bed at caring on appropriate conversation. Plan is for transfer to [facility] for rehab placement. Patient was evaluated and treated by Dr. Christianson has improved Sammy recommended no ALHAJI or ARB hypertensive medication . Patient was found to be in a bradycardic rhythm in the 40s patient is asymptomatic with this patient was evaluated by cardiology and cleared for transfer to [facility] Assessment Acute kidney injury secondary to dehydration Hyperkalemia resolved Gait abnormality with tremors Hypertension Hyperlipidemia History of anxiety/depression Bradycardia Plan Transfer to [facility] for rehab Patient Condition at Discharge: Stable Plan - Discharge Summary Discharge Medication List Aspirin 325 mg PO DAILY 09/20/15 [History] ARIPiprazole [Abilify] 10 mg PO HS 08/15/16 [History] Divalproex ER [Depakote ER] 1,000 mg PO HS 08/15/16 [History] Mirabegron [Myrbetriq] 50 mg PO DAILY 08/15/16 [History] [place]-3 Fatty Acids/Fish Oil [Fish Oil 1,000 mg Softgel] 2 cap PO DAILY [History] Simvastatin [Zocor] 40 mg PO HS 08/15/16 [History] Acetaminophen Tab [Tylenol] 650 mg PO Q6HR PRN #0 tab 08/19/16 [Rx] Hydrochlorothiazide [Hydrodiuril] 12.5 mg PO DAILY cap 08/19/16 [Rx] Pantoprazole [Protonix] 40 mg PO DAILY tablet. 08/19/16 [Rx] amLODIPine [Norvasc] 10 mg PO DAILY tab 08/19/16 [Rx] hydrALAZINE HCL [Apresoline] 25 mg PO TID tab 08/19/16 [Rx] Follow up Appointment(s)/Referral(s): Alessandro Lyon MD [Primary Care Provider] - 1-2 days Discharge Disposition: TRANSFER TO SNF/ECF
--- NOTE | 2016-08-19 19:50 | PN ---
Patient is seen for follow-up for acute kidney injury. His renal function has significantly improved. Etiology was mainly prerenal. Patient's IV fluids have been discontinued. He is tolerating oral intake very well and he will be most likely discharged today. On examination, blood pressure is 123/58, heart rate 54 per minute. He is afebrile. Examination of the heart S1 and S2. Examination of the lungs: Bilateral breath sounds are heard. ABDOMEN: Soft, nontender. Examination of lower extremities shows trace edema bilaterally. TOOL CRIB LEAD exam is grossly intact. Labs show sodium 144, potassium 4.5, chloride 111, BUN 19, serum creatinine 1.47. Hemoglobin 10.6 g/dL. ASSESSMENT: 1. Acute kidney injury, prerenal, currently improved with IV hydration IV fluids are discontinued. 2. Hyperkalemia on admission, currently resolved with improvement in renal function. 3. Bradycardia. Patient is status post evaluation by cardiology and no need for a pacemaker. He will have further work-up as outpatient. 4. Hypertension. Blood pressures were not terribly uncontrolled previously. There was a reading of 190 mmHg systolic, today. Other blood pressure had been as low as 123/58. Patient has been started on Norvasc and hydralazine. Monitor blood pressure to avoid hypotension. 5. Chronic kidney disease, serum creatinine has stabilized at 1.4. Previous creatinine in October was as low as 1.14 mg/dL, NKF stage III etiology is likely nephrosclerosis. UA is completely benign. Plan: Patient should follow up as outpatient for CKD.
[2016-08-19] MEDS: DIVALPROEX ER 500 MG TAB.ER.24H PO SCH (21:56)
[2016-08-19] MEDS: ATORVASTATIN 20 MG TAB PO SCH (21:56)
[2016-08-19] MEDS: ARIPiprazole 10 MG TAB PO SCH (21:56)
[2016-08-20 07:41] VITALS: TEMP 98.8
[2016-08-20] MEDS: ONDANSETRON 4 MG/2 ML VIAL IVP SCH ×2 (07:41→10:56)
[2016-08-20] MEDS: ENOXAPARIN 40 MG/0.4 ML SYRINGE SQ SCH ×2 (07:42→07:50)
[2016-08-20] MEDS: amLODIPine 10 MG TAB PO SCH (07:42)
[2016-08-20] MEDS: ASPIRIN 325 MG TAB PO SCH (07:42)
[2016-08-20] MEDS: hydrALAZINE HCL 25 MG TAB PO SCH (07:42)
[2016-08-20] MEDS: OXYBUTYNIN 10 MG TAB.ER.24 PO SCH (07:42)
[2016-08-20] MEDS: PANTOPRAZOLE 40 MG TABLET PO SCH (07:43)
[2016-08-20] MEDS: HYDROCHLOROTHIAZIDE 12.5 MG CAP PO SCH (07:43)
[2016-08-20 11:10] VITALS: BP 158/75; PULSE 40; RESP 18
--- NOTE | 2016-08-20 12:11 | P.PN ---
Progress Note - Text Addendum to discharge summary Nurse reported of bradycardia down to 35 thru the night nurse discussed with cardiology .Cardiology cleared for transfer to [facility]
--- NOTE | 2016-08-20 14:25 | PN ---
The patient is seen for follow-up for acute kidney injury. His renal function has improved significantly. Patient was maintained on IV fluids which are now discontinued. His heart rate has been staying low and therefore cardiology consultation was obtained. Patient's blood pressure has been running on the high side and he has been started on hydrochlorothiazide with a small dose of hydralazine as well. Blood pressure seems to be better controlled now. He was occasionally having readings of up to 160 to 170s mmHg systolic, mostly about 130 to 140 range. His serum creatinine has been staying now at about 1.5 mg/dL. On examination currently, the patient is comfortable, awake. Blood pressure is 131/62, heart rate 61 per minute. He is afebrile. Examination of the heart S1 and S2. Examination of the lungs: Bilateral breath sounds are heard. Decreased breath sounds in bases. ABDOMEN: Soft, nontender. Examination of the lower extremities shows trace edema bilaterally. HEADER DOCK exam is grossly intact. Labs show sodium 144, potassium 4.5, BUN and creatinine 1.47. Hemoglobin 10.6 grams per deciliter. ASSESSMENT: 1. Acute kidney injury, prerenal, currently improved. 2. Hypertension. May continue current medications. 3. Chronic kidney disease, secondary to nephrosclerosis, baseline appears to be around 1.4 mg/dL. 4. Patient will need follow-up as outpatient. 5. Hyperkalemia on admission, currently resolved. PLAN: Follow up as outpatient. Okay to discharge from nephrology standpoint.
== END 2016-08-20 17:21 | DRG 683 ==
LOC: EC 13:57 → 6SEL 18:07
PROVIDERS: ADMIT Family Medicine; ATTEND Family Medicine
DX: N17.9 Acute kidney failure, unspecified (principal); I47.2 Ventricular tachycardia; E11.22 Type 2 diabetes mellitus with diabetic chronic kidney disease; E87.5 Hyperkalemia; E78.5 Hyperlipidemia, unspecified; E86.0 Dehydration; F31.9 Bipolar disorder, unspecified; G47.30 Sleep apnea, unspecified; H91.90 Unspecified hearing loss, unspecified ear; I12.9 Hypertensive chronic kidney disease with stage 1 through stage 4 chronic kidney disease, or unspecified chronic kidney disease; R25.1 Tremor, unspecified; R26.9 Unspecified abnormalities of gait and mobility; N18.3 Chronic kidney disease, stage 3 (moderate); Z79.82 Long term (current) use of aspirin; Z82.49 Family history of ischemic heart disease and other diseases of the circulatory system; Z87.891 Personal history of nicotine dependence; Z79.899 Other long term (current) drug therapy
CPT/HCPCS: 36415; 71020; 74000; 76770; 80048; 80053; 80164; 81003; 82550; 82553; 83690; 83735; 83880; 84100; 84132; 84443; 84484; 85025; 85610; 85730; 93005; 93306; 94640; 94760; 96360; 96361; 99285

== ENCOUNTER 2016-09-01 12:36 | Emergency (ER) | payer MEDICARE, BC ==
[2016-09-01 12:47] VITALS: RESP 18
[2016-09-01] MEDS ORDERED: SODIUM CHLORIDE 0.9% 1,000 ML IV STA ×2 (13:04)
--- NOTE | 2016-09-01 13:16 | ED ---
General Adult HPI - General Chief complaint: Recheck/Abnormal Lab/Rx Stated complaint: no appetite/tired-has kidney problems Time Seen by Provider: 09/01/16 13:02 Source: patient, family, RN notes reviewed, old records reviewed Mode of arrival: wheelchair Limitations: no limitations - History of Present Illness Initial comments: This is a 70-year-old male the ER for evaluation. Patient is presented today for evaluation of not feeling well. Patient has had bouts of renal failure lately but currently dealing with decreased eating and anorexia, decreased fluid intake. Decreased activity level and weakness. No no fevers per , patient does suffer from diabetes hypertension and high cholesterol. Patient himself has no significant complaints no chest pain no headache no bowel pain or shortness of breath. - Related Data Home Medications Medication Instructions Recorded Confirmed Aspirin 325 mg PO DAILY 09/20/15 09/01/16 ARIPiprazole [Abilify] 10 mg PO HS 08/15/16 09/01/16 Divalproex ER [Depakote ER] 1,000 mg PO HS 08/15/16 09/01/16 Mirabegron [Myrbetriq] 50 mg PO DAILY 08/15/16 09/01/16 [place]-3 Fatty Acids/Fish Oil [Fish 2 cap PO DAILY 08/15/16 09/01/16 Oil 1,000 mg Softgel] Atorvastatin [Lipitor] 20 mg PO HS 09/01/16 09/01/16 Previous Rx's Medication Instructions Recorded Acetaminophen Tab [Tylenol] 650 mg PO Q6HR PRN #0 tab 08/19/16 Hydrochlorothiazide [Hydrodiuril] 12.5 mg PO DAILY cap 08/19/16 amLODIPine [Norvasc] 10 mg PO DAILY #0 tab 08/20/16 hydrALAZINE HCL [Apresoline] 25 mg PO TID PRN #0 tab 08/20/16 Allergies Allergy/AdvReac Type Severity Reaction Status Date / Time Iodinated Contrast Media - Allergy Unknown Verified 09/01/16 13:38 Oral and donepezil [From Aricept] AdvReac Unknown Verified 09/01/16 13:38 Review of Systems ROS Statement: Those systems with pertinent positive or pertinent negative responses have been documented in the HPI. ROS Other: All systems not noted in ROS Statement are negative. Past Medical History Past Medical History: Diabetes Mellitus, Hyperlipidemia, Hypertension History of Any Multi-Drug Resistant Organisms: None Reported Past Surgical History: Hernia Repair, Joint Replacement, Orthopedic Surgery Additional Past Surgical History / Comment(s): nasal, bilateral knee Past Psychological History: Anxiety, Depression Smoking Status: Former smoker Past Alcohol Use History: None Reported Past Drug Use History: None Reported General Exam Limitations: no limitations General appearance: alert, in no apparent distress Head exam: Present: atraumatic, normocephalic, normal inspection Eye exam: Present: normal appearance, PERRL, EOMI. Absent: scleral icterus, conjunctival injection, periorbital swelling ENT exam: Present: normal exam, mucous membranes moist Neck exam: Present: normal inspection. Absent: tenderness, meningismus, lymphadenopathy Respiratory exam: Present: normal lung sounds bilaterally. Absent: respiratory distress, wheezes, rales, rhonchi, stridor Cardiovascular Exam: Present: regular rate, normal rhythm, normal heart sounds. Absent: systolic murmur, diastolic murmur, rubs, gallop, clicks GI/Abdominal exam: Present: soft, normal bowel sounds. Absent: distended, tenderness, guarding, rebound, rigid Extremities exam: Present: normal inspection, full ROM, normal capillary refill , other (Right extremity tenderness and lateral erythema). Absent: tenderness, pedal edema, joint swelling, calf tenderness Back exam: Present: normal inspection Neurological exam: Present: alert, oriented X3, CN II-XII intact Psychiatric exam: Present: normal affect, normal mood Skin exam: Present: warm, dry, intact, normal color. Absent: rash Course Vital Signs 09/01/16 12:44 Temperature 99.2 F Pulse Rate 59 L Respiratory 18 Rate Blood Pressure 142/65 O2 Sat by Pulse 97 Oximetry - Reevaluation(s) Reevaluation #1: 09/01/16 15:57 At this time patient's pain is controlled EKG Findings - EKG Comments: EKG Findings:: EKG shows sinus bradycardia rate 57, DC 186, QRS 90, QTC 401 Medical Decision Making - Medical Decision Making 70 male the ER with foot pain, patient does appear to have gout. We'll treat appropriately pain control X-Ray Are Negative Lab Work Shows No Renal Failure Which Family Was Concerned Concerned about, Patient Can Be Discharged Home - Lab Data Result diagrams: 09/01/16 13:48 09/01/16 13:48 Lab Results 09/01/16 09/01/16 09/01/16 Range/Units 13:48 13:48 13:48 WBC 6.6 (3.8-10.6) k/uL RBC 3.80 L (4.30-5.90) m/uL Hgb 11.7 L (13.0-17.5) gm/dL Hct 35.3 L (39.0-53.0) % MCV 92.7 (80.0-100.0) fL MCH 30.7 (25.0-35.0) pg MCHC 33.1 (31.0-37.0) g/dL RDW 13.9 (11.5-15.5) % Plt Count 174 D (150-450) k/uL Neutrophils % 75 % Lymphocytes % 15 % Monocytes % 7 % Eosinophils % 1 % Basophils % 0 % Neutrophils # 5.0 (1.3-7.7) k/uL Lymphocytes # 1.0 (1.0-4.8) k/uL Monocytes # 0.5 (0-1.0) k/uL Eosinophils # 0.1 (0-0.7) k/uL Basophils # 0.0 (0-0.2) k/uL PT (9.0-12.0) sec INR (<1.1) APTT (22.0-30.0) sec Sodium 143 (137-145) mmol/L Potassium 4.7 (3.5-5.1) mmol/L Chloride 104 (98-107) mmol/L Carbon Dioxide 28 (22-30) mmol/L Anion Gap 11 mmol/L BUN 20 (9-20) mg/dL Creatinine 1.20 (0.66-1.25) mg/dL Est GFR (MDRD) Af Amer >60 (>60 ml/min/1.73 sqM) Est GFR (MDRD) Non-Af 60 (>60 ml/min/1.73 sqM) Glucose 125 H (74-99) mg/dL Plasma Lactic Acid Tuan (0.7-2.0) mmol/L Calcium 9.2 (8.4-10.2) mg/dL Phosphorus 2.9 (2.5-4.5) mg/dL Magnesium 1.8 (1.6-2.3) mg/dL Total Bilirubin 0.9 (0.2-1.3) mg/dL AST 14 L (17-59) U/L ALT 23 (21-72) U/L Alkaline Phosphatase 61 (38-126) U/L Total Creatine Kinase 36 L (55-170) U/L CK-MB (CK-2) 0.7 (0.0-2.4) ng/mL CK-MB (CK-2) Rel Index 1.9 Troponin I <0.012 (0.000-0.034) ng/mL Total Protein 6.2 L (6.3-8.2) g/dL Albumin 3.8 (3.5-5.0) g/dL Urine Color Urine Appearance (Clear) Urine pH (5.0-8.0) Ur Specific [place] (1.001-1.035) Urine Protein (Negative) Urine Glucose (UA) (Negative) Urine Ketones (Negative) Urine Blood (Negative) Urine Nitrate (Negative) Urine Bilirubin (Negative) Urine Urobilinogen (<2.0) mg/dL Ur Leukocyte Esterase (Negative) 09/01/16 09/01/16 09/01/16 Range/Units 13:48 13:48 15:28 WBC (3.8-10.6) k/uL RBC (4.30-5.90) m/uL Hgb (13.0-17.5) gm/dL Hct (39.0-53.0) % MCV (80.0-100.0) fL MCH (25.0-35.0) pg MCHC (31.0-37.0) g/dL RDW (11.5-15.5) % Plt Count (150-450) k/uL Neutrophils % % Lymphocytes % % Monocytes % % Eosinophils % % Basophils % % Neutrophils # (1.3-7.7) k/uL Lymphocytes # (1.0-4.8) k/uL Monocytes # (0-1.0) k/uL Eosinophils # (0-0.7) k/uL Basophils # (0-0.2) k/uL PT 10.5 (9.0-12.0) sec INR 1.0 (<1.1) APTT 22.8 (22.0-30.0) sec Sodium (137-145) mmol/L Potassium (3.5-5.1) mmol/L Chloride (98-107) mmol/L Carbon Dioxide (22-30) mmol/L Anion Gap mmol/L BUN (9-20) mg/dL Creatinine (0.66-1.25) mg/dL Est GFR (MDRD) Af Amer (>60 ml/min/1.73 sqM) Est GFR (MDRD) Non-Af (>60 ml/min/1.73 sqM) Glucose (74-99) mg/dL Plasma Lactic Acid Tuan 1.7 (0.7-2.0) mmol/L Calcium (8.4-10.2) mg/dL Phosphorus (2.5-4.5) mg/dL Magnesium (1.6-2.3) mg/dL Total Bilirubin (0.2-1.3) mg/dL AST (17-59) U/L ALT (21-72) U/L Alkaline Phosphatase (38-126) U/L Total Creatine Kinase (55-170) U/L CK-MB (CK-2) (0.0-2.4) ng/mL CK-MB (CK-2) Rel Index Troponin I (0.000-0.034) ng/mL Total Protein (6.3-8.2) g/dL Albumin (3.5-5.0) g/dL Urine Color Yellow Urine Appearance Clear (Clear) Urine pH 5.5 (5.0-8.0) Ur Specific [place] 1.016 (1.001-1.035) Urine Protein Negative (Negative) Urine Glucose (UA) Negative (Negative) Urine Ketones Negative (Negative) Urine Blood Negative (Negative) Urine Nitrate Negative (Negative) Urine Bilirubin Negative (Negative) Urine Urobilinogen 2.0 (<2.0) mg/dL Ur Leukocyte Esterase Negative (Negative) - Radiology Data Radiology results: report reviewed (X-ray right foot negative, ultrasound RIGHT LOWER EXTREMITY NEGATIVE FOR DVT), image reviewed Disposition Clinical Impression: Right foot pain, Gout Disposition: HOME SELF-CARE Condition: Good Instructions: Gout (ED) Referrals: Alessandro Lyon MD [Primary Care Provider] - 1-2 days
[2016-09-01 14:17] LABS: ALT 23 U/L (21-72); AST 14 U/L (17-59); Alkaline Phosphatase 61 U/L (38-126); Anion Gap 11 mmol/L; Basophils % (A) 0 %; Blood Urea Nitrogen 20 mg/dL (9-20); CH 31.1; CHCM 33.7; Calcium 9.2 mg/dL (8.4-10.2); Carbon Dioxide 28 mmol/L (22-30); Chloride 104 mmol/L (98-107); Eosinophils # (A) 0.1 k/uL (0-0.7); Eosinophils % (A) 1 %; Glucose 125 mg/dL (74-99); HCT 35.3 % (39.0-53.0); HDW 3.21; HGB 11.7 gm/dL (13.0-17.5); Luc % (Auto) 2; Lymphocytes % (A) 15 %; MCH 30.7 pg (25.0-35.0); MCHC 33.1 g/dL (31.0-37.0); MCV 92.7 fL (80.0-100.0); Magnesium 1.8 mg/dL (1.6-2.3); Mean Platelet Volume 7.1; Monocytes # (A) 0.5 k/uL (0-1.0); Monocytes % (A) 7 %; Neutrophils % (A) 75 %; Non-African American GFR(MDRD) 60 (>60 ml/min/1.73 sqM); Phosphorous 2.9 mg/dL (2.5-4.5); Potassium 4.7 mmol/L (3.5-5.1); RDW 13.9 % (11.5-15.5); Sodium 143 mmol/L (137-145); Total Bilirubin 0.9 mg/dL (0.2-1.3); Total Protein 6.2 g/dL (6.3-8.2); WBC 6.6 k/uL (3.8-10.6); WBC (Perox) 6.77
[2016-09-01 14:20] LABS: Partial Thromboplastin Time 22.8 sec (22.0-30.0); Prothrombin Time 10.5 sec (9.0-12.0)
[2016-09-01 14:36] LABS: Creatine Kinase 36 U/L (55-170)
[2016-09-01 14:49] LABS: Creatine Kinase MB 0.7 ng/mL (0.0-2.4); Troponin I <0.012 ng/mL (0.000-0.034)
[2016-09-01 15:35] LABS: Appearance,Urine Clear (Clear); Bilirubin,Urine Negative (Negative); Glucose,Urine (UA) Negative (Negative); Ketones,Urine Negative (Negative); Leukocyte Esterase,Urine Negative (Negative); Nitrite,Urine Negative (Negative); PH, Urine 5.5 (5.0-8.0); Protein,Urine Negative (Negative); Specific Gravity,Urine 1.016 (1.001-1.035); UA Billing (MACRO vs. MICRO) CHEM
--- NOTE | 2016-09-01 15:45 | XR ---
Right foot HISTORY: Swelling 3 views of the right foot, no comparisons Bone mineralization, joint spaces and alignment are maintained, the digits are flexed, extension at t he metatarsophalangeal joints which could limit sensitivity. There is a plantar calcaneal spur. Degen erative changes are present at the intertarsal joints. IMPRESSION: Osteoarthritis. Additional findings above.
--- NOTE | 2016-09-01 15:46 | US ---
EXAMINATION TYPE: US venous doppler duplex LE RT DATE OF EXAM: 09/01/2016 3:07 PM COMPARISON: NONE CLINICAL HISTORY: Pain. SIDE PERFORMED: Grayscale, color Doppler, spectral Doppler imaging performed of the deep veins of the right lower ext remity. Right common femoral, superficial femoral, popliteal veins all compress normally and show no abnormal luminal echoes. Venous waveforms are normal. Right Leg: Negative for DVT IMPRESSION: No deep venous thrombosis at or above the right knee.
[2016-09-01] MEDS ORDERED: MORPHINE SULFATE 4 MG/ML SYRINGE IVP STA (15:58)
[2016-09-01 16:00] VITALS: BP 148/65
[2016-09-01 16:27] VITALS: PULSE 55; TEMP 98
[2016-09-02 12:22] LABS: Uric Acid 8.8 mg/dL (3.5-8.5)
== END 2016-09-01 16:42 | disposition home or self-care (01) ==
LOC: EC 12:36
DX: M10.9 Gout, unspecified (principal); R63.0 Anorexia; I10 Essential (primary) hypertension; E11.9 Type 2 diabetes mellitus without complications; E78.00 Pure hypercholesterolemia, unspecified; Z79.82 Long term (current) use of aspirin; Z79.899 Other long term (current) drug therapy; Z91.041 Radiographic dye allergy status; Z88.8 Allergy status to other drugs, medicaments and biological substances; E78.5 Hyperlipidemia, unspecified; F41.9 Anxiety disorder, unspecified; F32.9 Major depressive disorder, single episode, unspecified; Z87.891 Personal history of nicotine dependence
CPT/HCPCS: 36415; 93005; 80053; 82550; 82553; 83605; 83735; 84100; 84550; 84484; 85025; 85610; 85730; 81003; 87086; 73630; 93971; 99285; 96374; 96361 ×2; J2270

== ENCOUNTER 2016-09-05 11:38 | Inpatient (IN) | payer MEDICARE, BC ==
[2016-09-05] MEDS ORDERED: MORPHINE SULFATE 4 MG/ML SYRINGE IV STA (12:16)
[2016-09-05] MEDS ORDERED: SODIUM CHLORIDE 0.9% 500 ML IV STA (12:16)
[2016-09-05] MEDS ORDERED: ONDANSETRON 4 MG/2 ML VIAL IVP STA (12:16)
[2016-09-05] MEDS ORDERED: SODIUM CHLORIDE 0.9% 1,000 ML IV STA (12:16)
[2016-09-05] MEDS ORDERED: cefTRIAXone 2,000 MG in SODIUM CHLORIDE 0.9% 100 ML IVPB STA (12:19)
[2016-09-05 12:44] LABS: Basophils % (A) 0 %; CH 30.8; CHCM 34.1; Eosinophils % (A) 0 %; HCT 31.1 % (39.0-53.0); HDW 3.24; HGB 10.5 gm/dL (13.0-17.5); Luc # (Auto) 0.09; Luc % (Auto) 1; Lymphocytes # (A) 0.8 k/uL (1.0-4.8); Lymphocytes % (A) 10 %; MCH 30.8 pg (25.0-35.0); MCHC 33.9 g/dL (31.0-37.0); Mean Platelet Volume 7.4; Monocytes # (A) 0.9 k/uL (0-1.0); Monocytes % (A) 10 %; Neutrophils # (A) 6.5 k/uL (1.3-7.7); Neutrophils % (A) 79 %; RBC 3.41 m/uL (4.30-5.90); RDW 13.4 % (11.5-15.5); WBC 8.3 k/uL (3.8-10.6); WBC (Perox) 8.51
[2016-09-05 12:52] LABS: Partial Thromboplastin Time 25.6 sec (22.0-30.0); Prothrombin Time 10.4 sec (9.0-12.0)
--- NOTE | 2016-09-05 12:54 | XR ---
EXAMINATION TYPE: XR chest 2V DATE OF EXAM: 09/05/2016 12:45 PM COMPARISON: 08/15/16 HISTORY: Shortness of breath TECHNIQUE: Frontal and lateral views of the chest are obtained. FINDINGS: Scattered senescent parenchymal changes noted. Hyperinflation compatible with COPD. No evidence for infiltrate. No evidence for atelectasis. Heart size is stable. Mediastinal structures are stable and grossly unremarkable. No evidence for hilar prominence. Degenerative changes dorsal spine. IMPRESSION: 1. No evidence for acute pulmonary disease.
[2016-09-05 13:08] LABS: Creatine Kinase 34 U/L (55-170)
[2016-09-05 13:09] LABS: ALT 14 U/L (21-72); AST 11 U/L (17-59); Alkaline Phosphatase 53 U/L (38-126); Anion Gap 13 mmol/L; Blood Urea Nitrogen 19 mg/dL (9-20); Carbon Dioxide 28 mmol/L (22-30); Chloride 99 mmol/L (98-107); Glucose 92 mg/dL (74-99); Non-African American GFR(MDRD) 56 (>60 ml/min/1.73 sqM); Potassium 4.6 mmol/L (3.5-5.1); Sodium 140 mmol/L (137-145); Total Bilirubin 1.1 mg/dL (0.2-1.3); Total Protein 6.1 g/dL (6.3-8.2); Uric Acid 8.9 mg/dL (3.5-8.5)
[2016-09-05 13:21] LABS: Creatine Kinase MB 0.2 ng/mL (0.0-2.4); Troponin I <0.012 ng/mL (0.000-0.034)
[2016-09-05 14:16] LABS: Appearance,Urine Clear (Clear); Bilirubin,Urine Negative (Negative); Glucose,Urine (UA) 1+ (Negative); Ketones,Urine Trace (Negative); Leukocyte Esterase,Urine Negative (Negative); Nitrite,Urine Negative (Negative); PH, Urine 5.5 (5.0-8.0); Protein,Urine Trace (Negative); Specific Gravity,Urine 1.018 (1.001-1.035); UA Billing (MACRO vs. MICRO) CHEM
--- NOTE | 2016-09-05 15:08 | ED ---
Weakness HPI - General Chief complaint: Weakness Stated complaint: Weakness Time Seen by Provider: 09/05/16 11:50 Source: patient, EMS Mode of arrival: EMS - History of Present Illness Initial comments: Planing about the weakness she is to profound to walk also complaining about the right foot pain for which she seen Dr. Lyon and now also not eating or drinking well, he has a severe pain in the right Foot and the right leg he is not able to ambulate and his is not able to help him and his kidney doctor and his family doctor and advised him to come to the ER according to the patient. He denies any headaches no chest pain or shortness of breath no abdominal pain pain is confined to the right foot and the right leg patient himself and are requesting admission because he is not eating well at home and he is no able to care for him at home and is not able to help him. - Related Data Home Medications Medication Instructions Recorded Confirmed Aspirin 325 mg PO DAILY 09/20/15 09/05/16 ARIPiprazole [Abilify] 10 mg PO HS 08/15/16 09/05/16 Divalproex ER [Depakote ER] 1,000 mg PO HS 08/15/16 09/05/16 Mirabegron [Myrbetriq] 50 mg PO DAILY 08/15/16 09/05/16 Atorvastatin [Lipitor] 20 mg PO HS 09/01/16 09/05/16 Acetaminophen Tab [Tylenol Tab] 500 mg PO Q6HR PRN 09/05/16 09/05/16 Fish Oil/Dha/Epa [Fish Oil 1,200 1 cap PO BID 09/05/16 09/05/16 mg Fish Oil] Previous Rx's Medication Instructions Recorded Hydrochlorothiazide [Hydrodiuril] 12.5 mg PO DAILY cap 08/19/16 amLODIPine [Norvasc] 10 mg PO DAILY #0 tab 08/20/16 hydrALAZINE HCL [Apresoline] 25 mg PO TID PRN #0 tab MDD OVER 08/20/16 160/90 HYDROcodone/APAP 5-325MG [[place] 1 tab PO Q6HR PRN #30 tab 09/01/16 5-325] Allergies Allergy/AdvReac Type Severity Reaction Status Date / Time Iodinated Contrast Media - Allergy Unknown Verified 09/05/16 12:50 Oral and donepezil [From Aricept] AdvReac Unknown Verified 09/05/16 12:50 Review of Systems ROS Statement: Those systems with pertinent positive or pertinent negative responses have been documented in the HPI. ROS Other: All systems not noted in ROS Statement are negative. Past Medical History Past Medical History: Diabetes Mellitus, Hyperlipidemia, Hypertension History of Any Multi-Drug Resistant Organisms: None Reported Past Surgical History: Hernia Repair, Joint Replacement, Orthopedic Surgery Additional Past Surgical History / Comment(s): nasal, bilateral knee Past Psychological History: Anxiety, Depression Smoking Status: Former smoker Past Alcohol Use History: None Reported Past Drug Use History: None Reported General Exam - General Exam Comments Initial Comments: General: The patient is awake and alert, in mild distress Skin: Skin is warm and dry and no rashes or lesions are noted. Right foot is quite erythematous exam consistent with a cellulitis/gout Eye: Pupils are equal, round and reactive to light, extra-ocular movements are intact; there is normal conjunctiva bilaterally. Ears, nose, mouth and throat: There are moist mucous membranes and no oral lesions. Neck: The neck is supple, there is no tenderness or JVD. Cardiovascular: There is a regular rate and rhythm. No murmur, rub or gallop is appreciated. Respiratory: To auscultation bilateral, no wheezing no rhonchi no distress respiratory pedroza noticed Gastrointestinal: Soft, non-distended, non-tender abdomen without masses or organomegaly noted. There is no rebound or guarding present. Bowel sounds are unremarkable. Back: There is no tenderness to palpation in the midline. There is no obvious deformity. Musculoskeletal: Normal ROM, no tenderness, There is no pedal edema. There is no calf tenderness or swelling. No cords were appreciated. Neurological: CN II-XII intact, Cranial nerves III through XII are intact. There are no obvious motor or sensory deficits. Coordination appears grossly intact. Speech is normal. Psychiatric: Cooperative, appropriate mood & affect, normal judgment. Course Vital Signs 09/05/16 11:43 Temperature 100.4 F H Pulse Rate 62 Respiratory 20 Rate Blood Pressure 141/60 O2 Sat by Pulse 97 Oximetry EKG Findings - EKG Comments: EKG Findings:: EKG is a sinus bradycardia ventricular rate is 59 MT interval is 174 QRS duration is 98 QT/QTc is 420/450 and alert and in this EKG I don't see any ST elevation or ST depression Medical Decision Making - Lab Data Result diagrams: 09/05/16 11:50 09/05/16 11:50 Lab Results 09/05/16 09/05/16 09/05/16 Range/Units 11:50 11:50 11:50 WBC 8.3 (3.8-10.6) k/uL RBC 3.41 L (4.30-5.90) m/uL Hgb 10.5 L (13.0-17.5) gm/dL Hct 31.1 L (39.0-53.0) % MCV 91.0 (80.0-100.0) fL MCH 30.8 (25.0-35.0) pg MCHC 33.9 (31.0-37.0) g/dL RDW 13.4 (11.5-15.5) % Plt Count 208 (150-450) k/uL Neutrophils % 79 % Lymphocytes % 10 % Monocytes % 10 % Eosinophils % 0 % Basophils % 0 % Neutrophils # 6.5 (1.3-7.7) k/uL Lymphocytes # 0.8 L (1.0-4.8) k/uL Monocytes # 0.9 (0-1.0) k/uL Eosinophils # 0.0 (0-0.7) k/uL Basophils # 0.0 (0-0.2) k/uL PT (9.0-12.0) sec INR (<1.1) APTT (22.0-30.0) sec Sodium 140 (137-145) mmol/L Potassium 4.6 (3.5-5.1) mmol/L Chloride 99 (98-107) mmol/L Carbon Dioxide 28 (22-30) mmol/L Anion Gap 13 mmol/L BUN 19 (9-20) mg/dL Creatinine 1.26 H (0.66-1.25) mg/dL Est GFR (MDRD) Af Amer >60 (>60 ml/min/1.73 sqM) Est GFR (MDRD) Non-Af 56 (>60 ml/min/1.73 sqM) Glucose 92 (74-99) mg/dL Uric Acid 8.9 H (3.5-8.5) mg/dL Calcium 9.0 (8.4-10.2) mg/dL Total Bilirubin 1.1 (0.2-1.3) mg/dL AST 11 L (17-59) U/L ALT 14 L (21-72) U/L Alkaline Phosphatase 53 (38-126) U/L Total Creatine Kinase 34 L (55-170) U/L CK-MB (CK-2) 0.2 (0.0-2.4) ng/mL CK-MB (CK-2) Rel Index 0.6 Troponin I <0.012 (0.000-0.034) ng/mL Total Protein 6.1 L (6.3-8.2) g/dL Albumin 3.3 L (3.5-5.0) g/dL Urine Color Urine Appearance (Clear) Urine pH (5.0-8.0) Ur Specific [place] (1.001-1.035) Urine Protein (Negative) Urine Glucose (UA) (Negative) Urine Ketones (Negative) Urine Blood (Negative) Urine Nitrate (Negative) Urine Bilirubin (Negative) Urine Urobilinogen (<2.0) mg/dL Ur Leukocyte Esterase (Negative) 09/05/16 09/05/16 Range/Units 11:50 14:08 WBC (3.8-10.6) k/uL RBC (4.30-5.90) m/uL Hgb (13.0-17.5) gm/dL Hct (39.0-53.0) % MCV (80.0-100.0) fL MCH (25.0-35.0) pg MCHC (31.0-37.0) g/dL RDW (11.5-15.5) % Plt Count (150-450) k/uL Neutrophils % % Lymphocytes % % Monocytes % % Eosinophils % % Basophils % % Neutrophils # (1.3-7.7) k/uL Lymphocytes # (1.0-4.8) k/uL Monocytes # (0-1.0) k/uL Eosinophils # (0-0.7) k/uL Basophils # (0-0.2) k/uL PT 10.4 (9.0-12.0) sec INR 1.0 (<1.1) APTT 25.6 (22.0-30.0) sec Sodium (137-145) mmol/L Potassium (3.5-5.1) mmol/L Chloride (98-107) mmol/L Carbon Dioxide (22-30) mmol/L Anion Gap mmol/L BUN (9-20) mg/dL Creatinine (0.66-1.25) mg/dL Est GFR (MDRD) Af Amer (>60 ml/min/1.73 sqM) Est GFR (MDRD) Non-Af (>60 ml/min/1.73 sqM) Glucose (74-99) mg/dL Uric Acid (3.5-8.5) mg/dL Calcium (8.4-10.2) mg/dL Total Bilirubin (0.2-1.3) mg/dL AST (17-59) U/L ALT (21-72) U/L Alkaline Phosphatase (38-126) U/L Total Creatine Kinase (55-170) U/L CK-MB (CK-2) (0.0-2.4) ng/mL CK-MB (CK-2) Rel Index Troponin I (0.000-0.034) ng/mL Total Protein (6.3-8.2) g/dL Albumin (3.5-5.0) g/dL Urine Color Yellow Urine Appearance Clear (Clear) Urine pH 5.5 (5.0-8.0) Ur Specific [place] 1.018 (1.001-1.035) Urine Protein Trace H (Negative) Urine Glucose (UA) 1+ H (Negative) Urine Ketones Trace H (Negative) Urine Blood Negative (Negative) Urine Nitrate Negative (Negative) Urine Bilirubin Negative (Negative) Urine Urobilinogen 3.0 (<2.0) mg/dL Ur Leukocyte Esterase Negative (Negative) Disposition Clinical Impression: Right leg pain, Cellulitis of right foot, Gout, Unable to ambulate Disposition: ADMITTED IP TO THIS [facility] Condition: Good
[2016-09-05] MEDS ORDERED: SODIUM CHLORIDE 0.9% 1,000 ML IV ONE (15:14)
[2016-09-05] MEDS ORDERED: ACETAMINOPHEN TAB 500 MG TAB PO PRN (15:17)
[2016-09-05] MEDS ORDERED: hydrALAZINE HCL 25 MG TAB PO PRN (15:17)
[2016-09-05] MEDS ORDERED: HYDROmorphone 2 MG TAB PO PRN (15:18)
--- NOTE | 2016-09-05 15:55 | US ---
EXAMINATION TYPE: US venous doppler duplex LE RT DATE OF EXAM: 09/05/2016 3:37 PM COMPARISON: 09/01/2016 CLINICAL HISTORY: 70-year-old male Pain. TECHNIQUE: Duplex Doppler ultrasound examination of the right lower extremity. FINDINGS: SIDE PERFORMED: Right VESSELS IMAGED: External Iliac Vein (EIV) Common Femoral Vein Deep Femoral Vein Greater Saphenous Vein * Femoral Vein Popliteal Vein Small Saphenous Vein * Proximal Calf Veins (* superficial vessels) Right Leg: Anterior mural-based hypoechoic focus along the lower popliteal vein. There is vascular f low around this area. The vessel remains mostly compressible. This was not seen on prior exam. IMPRESSION: Findings suggest a new short segment nonocclusive DVT within the lower right popliteal vein, not karel rly seen on 09/01/2016. No acute, occlusive DVT at or above the knee.
[2016-09-05] MEDS ORDERED: ENOXAPARIN 80 MG/0.8 ML SYRINGE SQ STA (16:25)
[2016-09-05] MEDS: CEPHALEXIN 500 MG CAP PO SCH ×2 (17:15→21:07)
[2016-09-05] MEDS: ATORVASTATIN 20 MG TAB PO SCH (20:43)
[2016-09-05] MEDS: ARIPiprazole 10 MG TAB PO SCH (20:43)
[2016-09-05] MEDS: DIVALPROEX ER 500 MG TAB.ER.24H PO SCH (20:43)
[2016-09-05] MEDS: COLCHICINE 0.6 MG TAB PO SCH (20:44)
[2016-09-05] MEDS ORDERED: NON-FORMULARY DRUG (Fish Oil/Dha/Epa [Fish Oil 1,200 Mg Fish Oil] 1 CAP) PO SCH (21:00)
[2016-09-06] MEDS: ENOXAPARIN 80 MG/0.8 ML SYRINGE SQ SCH ×2 (05:30→18:17)
[2016-09-06] MEDS ORDERED: HYDROCHLOROTHIAZIDE 12.5 MG CAP PO SCH (09:00)
[2016-09-06] MEDS: amLODIPine 10 MG TAB PO SCH (10:06)
[2016-09-06] MEDS: ASPIRIN 325 MG TAB PO SCH (10:07)
[2016-09-06] MEDS: CEPHALEXIN 500 MG CAP PO SCH (10:08)
[2016-09-06] MEDS: COLCHICINE 0.6 MG TAB PO SCH ×2 (10:08→20:55)
[2016-09-06] MEDS: OXYBUTYNIN XL 5 MG TAB.ER.24 PO SCH (10:08)
[2016-09-06] MEDS ORDERED: IV VANCOMYCIN PER PHARMACY 1 EACH MISC MISCELLANE PRN (10:44)
[2016-09-06 11:01] VITALS: BMI 32.2
[2016-09-06] MEDS: SODIUM CHLORIDE 0.9% 1,000 ML IV SCH ×2 (11:02→20:56)
[2016-09-06] MEDS: HYDROcodone/APAP 5-325MG 1 EACH TAB PO PRN (11:02)
[2016-09-06] MEDS: VANCOMYCIN 1,500 MG in SODIUM CHLORIDE 0.9% 250 ML IVPB SCH (12:11)
--- NOTE | 2016-09-06 12:28 | HP ---
DATE OF ADMISSION: Patient is a 70-year-old gentleman who came in with complaints of severe right ankle pain has been going on for about a week and patient was also having high-grade fevers yesterday. Patient was admitted for possibility of gout, although patient has significant redness in posterior ankle area extending up to the dorsal aspect of the foot with tenderness and patient is unable to bear weight. Patient are active and passive motions are restricted and patient did have high-grade fevers without any other source of infection. Patient denied any cough. Patient denied any dysuria, nausea, vomiting. Patient denied any headache, photophobia. I am consulting Orthopedic Surgery for possible arthrocentesis and I will also obtain an x-ray. Patient will be started on vancomycin. I believe patient's symptoms are being partially controlled by the Keflex he was receiving at home. He does not know why he is on Keflex. Patient received Rocephin last night from ER. Blood cultures are already obtained. Patient will be started on vancomycin. Patient underwent a Doppler of the lower extremity showed questionable lesion consistent with possibility of DVT in the right popliteal vein. This may be from his previous DVT. Since he has a DVT in the past, I believe it is reasonable to continue with Lovenox and his kidney function borderline. It is not that bad because of which I will go ahead and continue with Lovenox and will consult Dr. David Palmer to see whether we need to continue anticoagulation dose of Lovenox at this time and considering that there is no clear-cut evidence of a new DVT and patient did have history of DVT in the past and patient is mostly nonambulatory because of his right ankle, possible septic arthritis. REVIEW OF SYSTEMS: CONSTITUTIONAL: No fever, no malaise, no fatigue. HEENT: No recent visual problems or hearing problems. Denied any sore throat. CARDIOVASCULAR: No chest pain, orthopnea, PND, no palpitations, no syncope. PULMONARY: No shortness of breath, no cough, no hemoptysis. GASTROINTESTINAL: No diarrhea, no nausea, no vomiting, no abdominal pain. Normoactive bowel sounds. NEUROLOGICAL: No headaches, no weakness, no numbness. HEMATOLOGICAL: Denies any bleeding or petechiae. GENITOURINARY: Denies any burning micturition, frequency, or urgency. MUSCULOSKELETAL/RHEUMATOLOGICAL: As described in HPI. ENDOCRINE: Denies any polyuria or polydipsia. The rest of the 14 point review of systems is negative. HOME MEDICATIONS: 1. Aspirin. 2. Aripiprazole. 3. Divalproex. 4. Myrbetriq. 5. Atorvastatin. 6. Tylenol. 7. Hydrochlorothiazide. 8. Amlodipine. 9. Hydralazine. 10. Hydrocodone acetaminophen. ALLERGIES: Allergic to IODINATE CONTRAST and DONEPEZIL. PAST MEDICAL HISTORY: Significant for diabetes mellitus, hyperlipidemia, hypertension, CKD, stage II to III, hernia repair, joint replacement surgery, anxiety, depression. Patient had a DVT in the past. SOCIAL HISTORY: Former smoker. Denied any alcohol abuse or any drug abuse. FAMILY HISTORY: Diabetes mellitus, myocardial infarction in multiple family members. PHYSICAL EXAMINATION: VITAL SIGNS: Temperature 99.8. Patient's 24-hour T-max is 100.9. Pulse of 55, respiratory rate of 16, blood pressure 158/72, saturating at 98% on room air. GENERAL: The patient is alert and oriented x3, not in any acute distress. Well developed, well nourished. HEENT: Pupils are round and equally reacting to light. EOMI. No scleral icterus. No conjunctival pallor. Normocephalic, atraumatic. No pharyngeal erythema. No thyromegaly. CARDIOVASCULAR: S1 and S2 present. No murmurs, rubs, or gallops. PULMONARY: Chest is clear to auscultation, no wheezing or crackles. ABDOMEN: Soft, nontender, nondistended, normoactive bowel sounds. No palpable organomegaly. MUSCULOSKELETAL: As described in HPI itself. EXTREMITIES: No cyanosis, clubbing, or pedal edema. NEUROLOGICAL: Gross neurological examination did not reveal any focal deficits. SKIN: No rashes. LABORATORY DATA: CBC, CMP are abnormal for normal WBC count, mildly low hemoglobin, which is normocytic anemia, probably anemia of chronic disease. Creatinine is 1.26. I do not know his baseline creatinine at this time, although patient did tell me that he has chronic kidney dysfunction issues. Baseline creatinine appears to be around 1.1 Ankle x-ray will be obtained. Chest x-ray did not show any pneumonic process. ASSESSMENT AND PLAN: 1. Right ankle pain and redness. I believe with ( ) fever and I believe patient may have septic arthritis. If arthrocentesis can be done, it is better to arthrocentesis and send fluid for analysis for septic arthritis. I will obtain an x-ray of the ankle and sometimes we can see typical features of gout on the x-ray if at all there is. Patient is on colchicine, treating for gout. I started him on vancomycin. Blood cultures were obtained. 2. Possibility of deep venous thrombosis cannot be completely ruled out as mentioned above. Patient is on anticoagulation of Lovenox, which will be continued. 3. History of deep venous thrombosis in the past. 4. Diabetes mellitus, type 2. 5. Hyperlipidemia. 6. Hypertension. 7. Chronic kidney disease stage II with possibility of prerenal azotemia. Patient will be started on IV fluids and hydrochlorothiazide will discontinued. For the rest of the above mentioned chronic medical problems, I will go ahead and continue his home medications. Patient's primary care physician is Dr. Alessandro Lyon.
--- NOTE | 2016-09-06 12:44 | P.CNOR ---
History of Present Illness - [facility] Consult date: 09/06/16 Consult reason: joint pain History of present illness: This is a 70-year-old male who was admitted to [facility] yesterday with regards to weakness and difficulty with weightbearing on his right foot. Patient has had a few different hospital admission in the recent past, regarding acute kidney injuries. Patient is also noticed some right foot swelling and mild redness over the last week and a half. Patient had labs drawn along with a venous Doppler which showed the possibility of a small nonocclusive DVT. Patient has a history of a previous DVT when he had his right knee replaced in the past. Patient was admitted to the internal medicine group with regards to the weakness and DVT. I was contacted today by the internal medicine doctor regarding the swelling and pain in the right foot. Patient also had a small grade fever and due to the pain on exam, there was concern of an infection involving the right foot. Uric acid level was drawn on this patient, which shows 8.9. Antigout medications of then started at this time, also IV vancomycin for prophylaxis. Patient is a known medical history of any disease, hypertension, hyperlipidemia and psychiatric disorder. Patient is examined at bedside today, he is a pleasant gentleman. Patient's affect seems slightly altered, he takes a while to answer my questions, he also got emotional and states that he found out today a family member of his to pass away. She is not a great historian with regards to his medical history. He admits to having both his knees replaced by Dr. Carlson, but cannot give me a adequate date. He denies any recent trauma involving the right foot. Patient admits to some discomfort of the left foot, more in the mid foot region on the arch. The pain in the right foot does tend to migrate he states, it was over the first MTP joint, but also in the midfoot. He denies any pain in the bilateral knees, bilateral hips. He denies any new onset lumbar or cervical pain. He denies any pain in the upper extremities. Review of Systems Constitutional: Reports as per HPI Past Medical History Past Medical History: COPD, Dementia, Diabetes Mellitus, Deep Vein Thrombosis ( DVT), Hyperlipidemia, Hypertension, Memory Impairment, Osteoarthritis (OA), Prostate Disorder, Sleep Apnea/CPAP/BIPAP Additional Past Medical History / Comment(s): DVT AFTER KNEE SX,ENLARGED PROSTATE, EARLY DEMENTIA," SHORT TERM MEMORY PROBLEMS", PAST FALL HIT HEAD", PER PAST ADMIT FOR ACUTE KIDNEY FAILIURE-SEES A KIDNEY DR. SINUS/SEASONAL ALLERGY, GOUT, SLEEP APNEA BUT ABLE TO USE CPAP/MASK DOES'NT FIT. History of Any Multi-Drug Resistant Organisms: None Reported Past Surgical History: Hernia Repair, Joint Replacement, Orthopedic Surgery Additional Past Surgical History / Comment(s): nasal, bilateral knee REPLACMENTS , CARIDAD HIP REPLACEMENTS, RT CARPAL TUNNEL,CARIDAD INGUINAL HERNIA REPAIRS Past Anesthesia/Blood Transfusion Reactions: No Reported Reaction Past Psychological History: Anxiety, Depression Additional Psychological History / Comment(s): AT TIME OF THIS ADMIT PT DENIES ANY DEPRESSION OR THOUGHTS OF WANTING TO HARM SELF. Smoking Status: Former smoker Past Alcohol Use History: None Reported Additional Past Alcohol Use History / Comment(s): STARTED SMOKING IN 1956, QUIT IN 1989 WAS SMOKING 1 PPD. Past Drug Use History: None Reported - Past Family History Father Family Medical History: Diabetes Mellitus, Myocardial Infarction (DC) Additional Family Medical History / Comment(s): AT AGE 62 FROM [place] Mother Family Medical History: Diabetes Mellitus Additional Family Medical History / Comment(s): IN HER 40'S Medications and Allergies Home Medications Medication Instructions Recorded Confirmed Type Aspirin 325 mg PO DAILY 09/20/15 09/05/16 History ARIPiprazole [Abilify] 10 mg PO HS 08/15/16 09/05/16 History Divalproex ER [Depakote ER] 1,000 mg PO HS 08/15/16 09/05/16 History Mirabegron [Myrbetriq] 50 mg PO DAILY 08/15/16 09/05/16 History Atorvastatin [Lipitor] 20 mg PO HS 09/01/16 09/05/16 History Acetaminophen Tab [Tylenol Tab] 500 mg PO Q6HR PRN 09/05/16 09/05/16 History Fish Oil/Dha/Epa [Fish Oil 1,200 1 cap PO BID 09/05/16 09/05/16 History mg Fish Oil] Allergies Allergy/AdvReac Type Severity Reaction Status Date / Time Iodinated Contrast Media - Allergy Unknown Verified 09/05/16 12:50 Oral and donepezil [From Aricept] AdvReac Unknown Verified 09/05/16 12:50 Physical Examination Lower extremity: Attention was first directed to the right lower extremity. There are multiple lines drawn with dates and times representing the swelling and erythema was present. There is obvious swelling of the right foot and ankle region. There is mild erythema present on the dorsum of the foot. There is no obvious open lesions present. I'm unable to appreciate any fluctuance throughout the entire right foot on exam that would represent any abscess formation. Patient's range of motion was limited on exam, he was able to wiggle the toes. His plantar flexion and dorsiflexion are intact, weakness noted. Sensory exam to light touch throughout the right lower extremity is intact. His dorsal pedis pulses 2+. Patient was nontender with palpation along the calcaneus and Achilles tendon distribution. Tenderness with palpation was noted mostly at the first MTP joint. There was also some tenderness with palpation on the dorsal medial aspect of the midfoot. Exam of the left foot was also done, no obvious open lesions or sores are present. There is no obvious effusions, soft tissue swelling or erythema. There is some mild tenderness noted on the medial arch in the midfoot. No other acute areas of tenderness are appreciated on exam. Sensory exam to light touch throughout the extremity is intact. Dorsal pedis pulses 2+ Gen. orthopedic exam revealed extension and flexion being intact in the bilateral knees. Logroll maneuver the bilateral legs reproduces no pain in the hip joints. Palpation of the bilateral calfs revealed soft, no tenderness noted. Results - Labs Result Diagrams: 09/05/16 11:50 09/05/16 11:50 - Diagnostic results Ankle/Foot x-ray: report reviewed, image reviewed Assessment and Plan Plan: Imaging: Multiple views of the right ankle were obtained. There is no obvious acute dislocations or fractures present. There is evidence of a plantar spur off the calcaneus. No other acute osseous abnormalities present Assessment: 1. Right foot pain and swelling 2. Left foot pain 3. Right foot gouty arthropathy 4. Difficulty with ambulation 5. Other medical comorbidities Plan: 1. I was able to review this case, including both imaging and physical exam findings with my attending Dr. Westbrook. Do not believe there is any evidence of a septic arthritis involving the right or left foot at this time. No orthopedic surgical intervention needed at this time. 2. I believe this is a gouty arthropathy involving the right foot, and may be also be getting on the left foot. Patient admits that since admission yesterday there has been improvement in his pain. Patient has been started on colchicine by the internal medicine group. 3. Continue with current treatment. Internal medicine's recommendations 4. Pain control 5. Patient would benefit from physical therapy evaluation 6. GI and DVT prophylaxis per medical's recommendations 7. Nor orthopedic surgical intervention needed at this time, we will be available for further questions Time with Patient: Less than 30
--- NOTE | 2016-09-06 15:09 | XR ---
EXAMINATION TYPE: XR ankle complete RT DATE OF EXAM: 09/06/2016 12:01 PM COMPARISON: NONE HISTORY: 70 year-old male right ankle pain and swelling for days, gout TECHNIQUE: 3 views FINDINGS: There is mild soft tissue swelling about the ankle without any soft tissue calcifications or acute fr acture, subluxation, or dislocation seen. Ankle mortise is congruent. Talar dome is intact. Small del ineation to the Achilles tendon. Moderate sized plantar calcaneal spur. IMPRESSION: 1. Mild soft tissue swelling. 2. No acute osseous abnormality seen. 3. Moderate-sized plantar calcaneal spur.
[2016-09-06] MEDS: ATORVASTATIN 20 MG TAB PO SCH (20:55)
[2016-09-06] MEDS: DIVALPROEX ER 500 MG TAB.ER.24H PO SCH (20:55)
[2016-09-06] MEDS: ARIPiprazole 10 MG TAB PO SCH (20:55)
[2016-09-07] MEDS: VANCOMYCIN 1,500 MG in SODIUM CHLORIDE 0.9% 250 ML IVPB SCH (04:13)
[2016-09-07] MEDS: ENOXAPARIN 80 MG/0.8 ML SYRINGE SQ SCH ×2 (05:13→17:20)
[2016-09-07] MEDS: HYDROcodone/APAP 5-325MG 1 EACH TAB PO PRN (05:16)
[2016-09-07] MEDS: SODIUM CHLORIDE 0.9% 1,000 ML IV SCH ×3 (08:55→20:43)
[2016-09-07] MEDS: amLODIPine 10 MG TAB PO SCH (08:57)
[2016-09-07] MEDS: ASPIRIN 325 MG TAB PO SCH (08:57)
[2016-09-07] MEDS: COLCHICINE 0.6 MG TAB PO SCH ×2 (08:57→20:31)
[2016-09-07] MEDS: OXYBUTYNIN XL 5 MG TAB.ER.24 PO SCH (08:58)
[2016-09-07 11:22] LABS: CH 30.7; CHCM 32.8; HCT 29.3 % (39.0-53.0); HDW 3.18; HGB 9.4 gm/dL (13.0-17.5); MCH 30.2 pg (25.0-35.0); MCHC 32.2 g/dL (31.0-37.0); Mean Platelet Volume 7.8; RBC 3.12 m/uL (4.30-5.90); RDW 13.6 % (11.5-15.5); WBC 5.5 k/uL (3.8-10.6)
--- NOTE | 2016-09-07 12:36 | PN ---
Patient is admitted secondary to right ankle pain and patient evaluated by orthopedic surgeon, they believe patient has gouty arthritis. Patient most probably has gouty arthritis and we are also ruling out septic arthritis at this point of time. Infectious disease will evaluate the patient. The patient has significant improvement since yesterday and until infectious disease evaluation I will leave him on IV vancomycin. Because of the patient being on IV vancomycin, I will obtain a kidney function testing at this point of time. Patient is not weight-bearing at this point of time, we will check with physical therapy regarding their recommendations. Regarding DVT and continuation of anticoagulation dose of Lovenox. Awaiting recommendations from Dr. Palmer. REVIEW OF SYSTEMS: CARDIOVASCULAR: No chest pain, no orthopnea, no PND, no palpitations. PULMONARY: Denied any shortness of breath. No cough or hemoptysis. GASTROINTESTINAL: No diarrhea, nausea or vomiting. No abdominal pain. Normoactive bowel sounds. NEUROLOGIC: No headaches, no weakness, no numbness. Musculoskeletal as described in HPI. Medications were reviewed. PHYSICAL EXAMINATION: VITAL SIGNS: Temperature 98.1, pulse of 50, respiratory rate of 16, blood pressure 133/60, saturating at 95% on room air. GENERAL: The patient is alert and oriented x3, not in any acute distress. Well developed, well nourished. HEENT: Pupils are round and equally reacting to light. EOMI. No scleral icterus. No conjunctival pallor. Normocephalic, atraumatic. No pharyngeal erythema. No thyromegaly. CARDIOVASCULAR: S1 and S2 present. No murmurs, rubs, or gallops. PULMONARY: Chest is clear to auscultation, no wheezing or crackles. ABDOMEN: Soft, nontender, nondistended, normoactive bowel sounds. No palpable organomegaly. MUSCULOSKELETAL: Significantly improved redness of the right ankle. Patient has some pain in the left knee as well as left ankle which are also better. Significant improvement in his right ankle and redness that is completely resolved at this point in time. EXTREMITIES: No cyanosis, clubbing, or pedal edema. NEUROLOGICAL: Gross neurological examination did not reveal any focal deficits. SKIN: No rashes. LABORATORY DATA: None available from today. Labs will be obtained for today. BMP will be obtained from today. ASSESSMENT AND PLAN: 1. Right ankle pain and redness, gouty arthritis versus septic arthritis. Possibility of septic arthritis is low. The patient had fevers which completely resolved at this point of time. Source of fevers is not clear at this point of time because of which getting infectious disease to evaluate the patient, can be from inflammation from gouty arthritis. 2. Gouty arthritis. 3. Possibility of deep venous thrombosis for which patient is on Lovenox as mentioned above. 4. Type 2 diabetes mellitus. 5. Hypertension. 6. Hyperlipidemia. 7. Chronic kidney disease stage II. PLAN: Continue with present medications. Possibility of discharge tomorrow after management plan as mentioned in the interval history.
--- NOTE | 2016-09-07 14:03 | P.CONS ---
History of Present Illness - Reason for Consult Consult date: 09/07/16 - Chief Complaint Pain right leg - History of Present Illness Pleasant 70-year-old male who is underlying multiple medical troubles , lives in the family home with his who is his caregiver due to his underlying dementia presents to the emergency center with difficulties with ambulation. This related that for a short period of time before admission he was to have difficulties with his right foot. There is increasing amounts of swelling and even some erythema that had started. Because of the become so much worse acutely and examined difficulty bearing weight he presented to the emergency center. X-rays show evidence of a calcaneal spur but no other significant abnormality or fracture. He is seen by orthopedics there is evidence by imaging studies of a deep venous thrombosis for which she is receiving treatment for. Because of the redness to the foot and concerns for cellulitis the infectious diseases consultation was requested. The patient denies any specific trauma or falls at the start of this issue. He does not recall a history of gout but is a poor historian. He relates he relies on his for most of his details. He also relates that he is somewhat hard of hearing and does not bring his hearing aids to the hospital because he does not want to lose them. Review of Systems Difficulty with pain and swelling to the right foot making ambulation difficult HEENT:Denies headache or acute visual change. Denies sinus or mouth discomforts. Denies neck stiffness or pain. Denies significant oral cavity pain. Denies difficulty on swallowing. Lungs: Denies significant shortness of breath, cough, sputum production, or hemoptysis. Cardiovascular: Denies significant shortness of breath, chest pain, chest wall pain, orthopnea, dyspnea on exertion, syncope Gastrointestinal:Denies nausea, vomiting, diarrhea, constipation, hematemesis, melena, hematochezia. No no significant change of bowel habit noticed. Musculoskeletal: As per the HPI and does have difficulties with ambulation at times in the past but not due to the severe foot pain as of now Skin: Erythema to the right foot as noted per the HPI Neuro: Denies headache or visual change. Does not have any significant unilateral weakness. Does have evidence of difficulties with his memory which is affecting his day-to -day activities. Psychiatric:s denies depression but does seem to have some anxiety about his memory loss Endocrine: Has fatigue which is not new and has gained weight over the last year. Past Medical History Past Medical History: COPD, Dementia, Diabetes Mellitus, Deep Vein Thrombosis ( DVT), Hyperlipidemia, Hypertension, Memory Impairment, Osteoarthritis (OA), Prostate Disorder, Sleep Apnea/CPAP/BIPAP Additional Past Medical History / Comment(s): DVT AFTER KNEE SX,ENLARGED PROSTATE, EARLY DEMENTIA," SHORT TERM MEMORY PROBLEMS", PAST FALL HIT HEAD", PER PAST ADMIT FOR ACUTE KIDNEY FAILIURE-SEES A KIDNEY DR. SINUS/SEASONAL ALLERGY, GOUT, SLEEP APNEA BUT ABLE TO USE CPAP/MASK DOES'NT FIT. History of Any Multi-Drug Resistant Organisms: None Reported Past Surgical History: Hernia Repair, Joint Replacement, Orthopedic Surgery Additional Past Surgical History / Comment(s): nasal, bilateral knee REPLACMENTS , CARIDAD HIP REPLACEMENTS, RT CARPAL TUNNEL,CARIDAD INGUINAL HERNIA REPAIRS Past Anesthesia/Blood Transfusion Reactions: No Reported Reaction Past Psychological History: Anxiety, Depression Additional Psychological History / Comment(s): AT TIME OF THIS ADMIT PT DENIES ANY DEPRESSION OR THOUGHTS OF WANTING TO HARM SELF. , his is his primary caregiver. 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 No experience. No international travel. Stopped tobacco smoking in 1989. No significant alcohol or recreational drug use or related at this time. No international travel. No pets in the home Smoking Status: Former smoker Past Alcohol Use History: None Reported Additional Past Alcohol Use History / Comment(s): STARTED SMOKING IN 1956, QUIT IN 1989 WAS SMOKING 1 PPD. Past Drug Use History: None Reported - Past Family History Father Family Medical History: Diabetes Mellitus, Myocardial Infarction ([place]) Additional Family Medical History / Comment(s): AT AGE 62 FROM [place] Mother Family Medical History: Diabetes Mellitus Additional Family Medical History / Comment(s): IN HER 40'S Medications and Allergies Home Medications and Allergies Comment(s): Current Medications Acetaminophen (Tylenol Tab) 500 mg PO Q6HR PRN PRN Reason: Pain Last Admin: 09/06/16 00:51 Dose: 500 mg Acetaminophen/Hydrocodone Bitart ([place] 5-325) 1 each PO Q6HR PRN PRN Reason: Moderate Pain Last Admin: 09/07/16 05:16 Dose: 1 each Amlodipine Besylate (Norvasc) 10 mg PO DAILY [facility] Last Admin: 09/07/16 08:57 Dose: Not Given Aripiprazole (Abilify) 10 mg PO [facility] Last Admin: 09/06/16 20:55 Dose: 10 mg Aspirin (Aspirin) 325 mg PO DAILY [facility] Last Admin: 09/07/16 08:57 Dose: 325 mg Atorvastatin Calcium (Lipitor) 20 mg PO HS [facility] Last Admin: 09/06/16 20:55 Dose: 20 mg Colchicine (Colcrys) 0.6 mg PO BID [facility] Last Admin: 09/07/16 08:57 Dose: 0.6 mg Divalproex Sodium (Depakote Er) 1,000 mg PO HS [facility] Last Admin: 09/06/16 20:55 Dose: 1,000 mg Enoxaparin Sodium (Lovenox) 80 mg SQ Q12HR@0600,1800 [facility] Last Admin: 09/07/16 05:13 Dose: 80 mg Hydromorphone HCl (Dilaudid) 1 mg PO Q4HR PRN PRN Reason: Pain Sodium Chloride (Saline 0.9%) 1,000 mls @ 100 mls/hr IV .Q10H [facility] Last Admin: 09/07/16 08:55 Dose: 100 mls/hr Vancomycin HCl 1,500 mg/ (Sodium Chloride) 250 mls @ 125 mls/hr IVPB Q16H [facility] Last Admin: 09/07/16 04:13 Dose: 125 mls/hr Miscellaneous Information (Vancomycin Trough Due) 0 each MISCELLANE DIRECTED ONE Stop: 09/08/16 11:31 Oxybutynin Chloride (Ditropan Xl) 10 mg PO DAILY [facility] Last Admin: 09/07/16 08:58 Dose: 10 mg Home Medications Medication Instructions Recorded Confirmed Type Aspirin 325 mg PO DAILY 09/20/15 09/05/16 History ARIPiprazole [Abilify] 10 mg PO HS 08/15/16 09/05/16 History Divalproex ER [Depakote ER] 1,000 mg PO HS 08/15/16 09/05/16 History Mirabegron [Myrbetriq] 50 mg PO DAILY 08/15/16 09/05/16 History Atorvastatin [Lipitor] 20 mg PO HS 09/01/16 09/05/16 History Acetaminophen Tab [Tylenol Tab] 500 mg PO Q6HR PRN 09/05/16 09/05/16 History Fish Oil/Dha/Epa [Fish Oil 1,200 1 cap PO BID 09/05/16 09/05/16 History mg Fish Oil] Allergies Allergy/AdvReac Type Severity Reaction Status Date / Time Iodinated Contrast Media - Allergy Unknown Verified 09/05/16 12:50 Oral and donepezil [From Aricept] AdvReac Unknown Verified 09/05/16 12:50 Physical Exam Vitals: Vital Signs Temp Pulse Resp BP Pulse Ox 09/07/16 07:00 98.1 F 50 L 16 133/61 95 09/06/16 23:00 99.2 F 55 L 20 136/59 94 L 09/06/16 15:00 96.8 F L 50 L 18 111/59 94 L Intake and Output 09/06/16 09/07/16 09/07/16 22:59 06:59 14:59 Intake Total 400 100 Output Total 150 350 Balance 250 100 -350 Intake: Oral 400 100 Output: Urine 150 350 Other: Voiding Method Urinal Urinal # Voids 1 2 # Bowel Movements 1 1 70-year-old male who appears about his stated age. He does have significant obesity but apparently is more comfortable today than yesterday HEENT: Anicteric conjunctiva are pink and moist nasal mucosa grossly intact without significant lesions, there is no thrush. Edentulous. Not in place there is symmetrical air entry. There are rare expiratory wheezes. No bronchial sounds. No dullness or egophony is noted Neck: The neck is supple without significant lymphadenopathy or thyromegaly. Lungs: Good bilateral air entry without significant crackles or wheezing. There is no significant bronchial sounds. There is no egophony or dullness. Heart: Regular with an audible S1 and S2 positive S4 no distinct murmur click or rub is noted. PMI was nondisplaced Abdomen: Obese, Positive bowel sounds soft and nontender without palpable masses or organomegaly. There was no guarding or rebound. Extremities: The upper extremity showed the IV site without difficulty. There is evidence of any significant lesions of the upper extremities. The [place] show evidence of the surgical incisions are well-healed of the bilateral knees and hips. No evidence of any effusion over either knee or hip. The sites are nontender. The right foot has evidence of some lines were placed because of the erythema. There are still some tenderness over the foot. However he relates is considerably improved. He has point tenderness over the right heel. There is no palpable effusion. He continues to have tenderness upon range of motion of the right ankle. But apparently is considerably improved from yesterday when he relates that the motion of the ankle with caused him to scream in pain. Neuro: The patient is somewhat of a poor historian. He however is awake alert oriented to person place Does not have acute gross focal sensory motor deficits. Results CBC & Chem 7: 09/07/16 11:00 09/05/16 11:50 Labs: Abnormal Lab Results - Last 24 Hours (Table) 09/07/16 Range/Units 11:00 RBC 3.12 L (4.30-5.90) m/uL Hgb 9.4 L (13.0-17.5) gm/dL Hct 29.3 L (39.0-53.0) % Laboratory Results WBC 5.5 k/uL (3.8-10.6) 09/07/16 11:00 RBC 3.12 m/uL (4.30-5.90) L 09/07/16 11:00 Hgb 9.4 gm/dL (13.0-17.5) L 09/07/16 11:00 Hct 29.3 % (39.0-53.0) L 09/07/16 11:00 MCV 94.0 fL (80.0-100.0) 09/07/16 11:00 MCH 30.2 pg (25.0-35.0) 09/07/16 11:00 MCHC 32.2 g/dL (31.0-37.0) 09/07/16 11:00 RDW 13.6 % (11.5-15.5) 09/07/16 11:00 Plt Count 213 k/uL (150-450) 09/07/16 11:00 Neutrophils % 79 % 09/05/16 11:50 Lymphocytes % 10 % 09/05/16 11:50 Monocytes % 10 % 09/05/16 11:50 Eosinophils % 0 % 09/05/16 11:50 Basophils % 0 % 09/05/16 11:50 Neutrophils # 6.5 k/uL (1.3-7.7) 09/05/16 11:50 Lymphocytes # 0.8 k/uL (1.0-4.8) L 09/05/16 11:50 Monocytes # 0.9 k/uL (0-1.0) 09/05/16 11:50 Eosinophils # 0.0 k/uL (0-0.7) 09/05/16 11:50 Basophils # 0.0 k/uL (0-0.2) 09/05/16 11:50 PT 10.4 sec (9.0-12.0) 09/05/16 11:50 INR 1.0 (<1.1) 09/05/16 11:50 APTT 25.6 sec (22.0-30.0) 09/05/16 11:50 Sodium 140 mmol/L (137-145) 09/05/16 11:50 Potassium 4.6 mmol/L (3.5-5.1) 09/05/16 11:50 Chloride 99 mmol/L (98-107) 09/05/16 11:50 Carbon Dioxide 28 mmol/L (22-30) 09/05/16 11:50 Anion Gap 13 mmol/L 09/05/16 11:50 BUN 19 mg/dL (9-20) 09/05/16 11:50 Creatinine 1.26 mg/dL (0.66-1.25) H 09/05/16 11:50 Est GFR (MDRD) Af Amer >60 (>60 ml/min/1.73 sqM) 09/05/16 11:50 Est GFR (MDRD) Non-Af 56 (>60 ml/min/1.73 sqM) 09/05/16 11:50 Glucose 92 mg/dL (74-99) 09/05/16 11:50 Uric Acid 8.9 mg/dL (3.5-8.5) H 09/05/16 11:50 Calcium 9.0 mg/dL (8.4-10.2) 09/05/16 11:50 Total Bilirubin 1.1 mg/dL (0.2-1.3) 09/05/16 11:50 AST 11 U/L (17-59) L 09/05/16 11:50 ALT 14 U/L (21-72) L 09/05/16 11:50 Alkaline Phosphatase 53 U/L (38-126) 09/05/16 11:50 Total Creatine Kinase 34 U/L (55-170) L 09/05/16 11:50 CK-MB (CK-2) 0.2 ng/mL (0.0-2.4) 09/05/16 11:50 CK-MB (CK-2) Rel Index 0.6 09/05/16 11:50 Troponin I <0.012 ng/mL (0.000-0.034) 09/05/16 11:50 Total Protein 6.1 g/dL (6.3-8.2) L 09/05/16 11:50 Albumin 3.3 g/dL (3.5-5.0) L 09/05/16 11:50 Urine Color Yellow 09/05/16 14:08 Urine Appearance Clear (Clear) 09/05/16 14:08 Urine pH 5.5 (5.0-8.0) 09/05/16 14:08 Ur Specific [place] 1.018 (1.001-1.035) 09/05/16 14:08 Urine Protein Trace (Negative) H 09/05/16 14:08 Urine Glucose (UA) 1+ (Negative) H 09/05/16 14:08 Urine Ketones Trace (Negative) H 09/05/16 14:08 Urine Blood Negative (Negative) 09/05/16 14:08 Urine Nitrate Negative (Negative) 09/05/16 14:08 Urine Bilirubin Negative (Negative) 09/05/16 14:08 Urine Urobilinogen 3.0 mg/dL (<2.0) 09/05/16 14:08 Ur Leukocyte Esterase Negative (Negative) 09/05/16 14:08 Microbiology 09/05/16 14:08 Urine,Catheterized Urine Culture - Final 09/05/16 12:50 Blood Blood Culture - Preliminary No Growth after 24 hours Assessment and Plan (1) Gout Narrative/Plan: Pleasant 70-year-old male with history of dementia presents to Hospital with significant change in his ability to ambulate. He was having marked pain to his right foot and ankle. Is also having some swelling and erythema. Is been seen by orthopedics and I agree that underlying gout is the likely etiology of this seems to be precipitated by his underlying chronic renal failure. He is been treated with colchicine is now had a marked improvement of his status. He still has some point tenderness is been able to stand today. The patient does not appear to have evidence of cellulitis. X-rays are reviewed and does not appear to have any fracture or acute trauma to the foot. Does not appear to be on exam with septic arthritis. The patient is lacking fever, chills or leukocytosis. The patient treated with vancomycin therapy that may be discontinued. A sed rate and CRP can be obtained to further help direct therapy. All cultures are negative so far. Status: Acute (2) Chronic kidney disease (CKD) stage G3a/A1, moderately decreased glomerular filtration rate (GFR) between 45-59 mL/min/1.73 square meter and albuminuria creatinine ratio less than 30 mg/g Status: Acute (3) Deep vein thrombosis of right lower extremity Status: Acute
[2016-09-07 15:11] LABS: C Reactive Protein 242.2 mg/L (<10.0)
[2016-09-07] MEDS: ATORVASTATIN 20 MG TAB PO SCH (20:31)
[2016-09-07] MEDS: DIVALPROEX ER 500 MG TAB.ER.24H PO SCH (20:31)
[2016-09-07] MEDS: ARIPiprazole 10 MG TAB PO SCH (20:31)
--- NOTE | 2016-09-07 20:46 | P.CONS ---
History of Present Illness - Reason for Consult Consult date: 09/07/16 RLE DVT - History of Present Illness The pt is a 70 yr old WM, with multiple medical issues. He was admitted with c /o pain, redness and progressive difficulty with weight bearing on the right. He had a doppler done, revealing a non occlusive DVT in the rt popliteal vein. He has had various hospital visits over the past few week. He had a RLE doppler on 09/01/16 which was negative. He reports a prior h/o DVT. However he is a very poor historian. He was unable to recall which leg was affected, but stated that this occurred after major joint replacement surgery ( hip or knee) more than 15 years ago. He was unable to state how and for how long he was treated. The consult was therefore palced for further evaluation and recommendations Review of Systems Constitutional: Reports fatigue, Reports fever, Reports weakness Eyes: denies blurred vision, denies pain Ears: deny: decreased hearing, ear discharge, earache, tinnitus Ears, nose, mouth and throat: Denies headache, Denies sore throat Cardiovascular: Reports decreased exercise tolerance Respiratory: Denies cough Gastrointestinal: Denies abdominal pain, Denies diarrhea, Denies nausea, Denies vomiting Genitourinary: Reports urinary frequency, Reports urinary hesitancy Musculoskeletal: Reports as per HPI, Reports limitation of motion (rt ankle), Reports muscle weakness Musculoskeletal: right: ankle stiffness, left: ankle swelling, bilateral: ankle pain (R > L) Integumentary: Reports color changes (redness around rt ankle and dosum of foot) Neurological: Reports gait dysfunction, Reports memory loss, Reports weakness Psychiatric: Reports memory loss Endocrine: Denies fatigue, Denies weight change Hematologic/Lymphatic: Reports thrombophilia Past Medical History Past Medical History: COPD, Dementia, Diabetes Mellitus, Deep Vein Thrombosis ( DVT), Hyperlipidemia, Hypertension, Memory Impairment, Osteoarthritis (OA), Prostate Disorder, Sleep Apnea/CPAP/BIPAP Additional Past Medical History / Comment(s): DVT AFTER KNEE SX,ENLARGED PROSTATE, EARLY DEMENTIA," SHORT TERM MEMORY PROBLEMS", PAST FALL HIT HEAD", PER PAST ADMIT FOR ACUTE KIDNEY FAILIURE-SEES A KIDNEY DR. SINUS/SEASONAL ALLERGY, GOUT, SLEEP APNEA BUT ABLE TO USE CPAP/MASK DOES'NT FIT. History of Any Multi-Drug Resistant Organisms: None Reported Past Surgical History: Hernia Repair, Joint Replacement, Orthopedic Surgery Additional Past Surgical History / Comment(s): nasal, bilateral knee REPLACMENTS , CARIDAD HIP REPLACEMENTS, RT CARPAL TUNNEL,CARIDAD INGUINAL HERNIA REPAIRS Past Anesthesia/Blood Transfusion Reactions: No Reported Reaction Past Psychological History: Anxiety, Depression Additional Psychological History / Comment(s): AT TIME OF THIS ADMIT PT DENIES ANY DEPRESSION OR THOUGHTS OF WANTING TO HARM SELF. , his is his primary caregiver. 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 No experience. No international travel. Stopped tobacco smoking in 1989. No significant alcohol or recreational drug use or related at this time. No international travel. No pets in the home Smoking Status: Former smoker Past Alcohol Use History: None Reported Additional Past Alcohol Use History / Comment(s): STARTED SMOKING IN 1956, QUIT IN 1989 WAS SMOKING 1 PPD. Past Drug Use History: None Reported - Past Family History Father Family Medical History: Diabetes Mellitus, Myocardial Infarction ([place]) Additional Family Medical History / Comment(s): AT AGE 62 FROM [place] Mother Family Medical History: Diabetes Mellitus Additional Family Medical History / Comment(s): IN HER 40'S Medications and Allergies Home Medications Medication Instructions Recorded Confirmed Type Aspirin 325 mg PO DAILY 09/20/15 09/05/16 History ARIPiprazole [Abilify] 10 mg PO HS 08/15/16 09/05/16 History Divalproex ER [Depakote ER] 1,000 mg PO HS 08/15/16 09/05/16 History Mirabegron [Myrbetriq] 50 mg PO DAILY 08/15/16 09/05/16 History Atorvastatin [Lipitor] 20 mg PO HS 09/01/16 09/05/16 History Acetaminophen Tab [Tylenol Tab] 500 mg PO Q6HR PRN 09/05/16 09/05/16 History Fish Oil/Dha/Epa [Fish Oil 1,200 1 cap PO BID 09/05/16 09/05/16 History mg Fish Oil] Allergies Allergy/AdvReac Type Severity Reaction Status Date / Time Iodinated Contrast Media - Allergy Unknown Verified 09/05/16 12:50 Oral and donepezil [From Aricept] AdvReac Unknown Verified 09/05/16 12:50 Physical Exam Vitals: Vital Signs Temp Pulse Resp BP Pulse Ox 09/07/16 15:00 97.1 F L 50 L 20 128/59 96 09/07/16 07:00 98.1 F 50 L 16 133/61 95 09/06/16 23:00 99.2 F 55 L 20 136/59 94 L Intake and Output 09/07/16 09/07/16 09/07/16 06:59 14:59 22:59 Intake Total 100 Output Total 750 Balance 100 -750 Intake: Oral 100 Output: Urine 750 Other: Voiding Method Urinal Urinal # Voids 2 2 # Bowel Movements 1 1 Results CBC & Chem 7: 09/07/16 11:00 09/05/16 11:50 Labs: Abnormal Lab Results - Last 24 Hours (Table) 09/07/16 09/07/16 09/07/16 Range/Units 11:00 11:00 14:04 RBC 3.12 L (4.30-5.90) m/uL Hgb 9.4 L (13.0-17.5) gm/dL Hct 29.3 L (39.0-53.0) % ESR 83 H (0-15) mm/hr C-Reactive Protein 242.2 H (<10.0) mg/L Prealbumin 11 L (18-36) mg/dL Chest x-ray: report reviewed Venous US: report reviewed (09/05, 09/01, and 10/26 ( LLE)) Assessment and Plan (1) Deep vein thrombosis of right lower extremity Narrative/Plan: The main concern was re if this was new or not, given his prior h/o DVT. However the history re the prior DVT is very vague as noted. LLE doppler in 10/26 , and more importantly RLE doppler from 09/01/16 were negative. The positive doppler from 09/05/16 was compared to the one from 09/01/16, and the finding was noted to be new. 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 The case was d/w the admitting service. This is a small , non occlusive clot and is likely provoked, given his presentation. I would thus recommend anticoagulation for 3 mths. His GFR is > 60, with normal liver functions. Thus coumadin or the newer direct factor inhibitors are all reasonable choices. Per the Ortho note, an invasive procedure is not planned Status: Acute Plan: Defer to the admitting service for management of his other medical problems.
[2016-09-08] MEDS: ENOXAPARIN 80 MG/0.8 ML SYRINGE SQ SCH (05:08)
[2016-09-08 07:28] VITALS: BP 109/57; PULSE 45; RESP 16; TEMP 97.2
[2016-09-08] MEDS: amLODIPine 10 MG TAB PO SCH (09:46)
[2016-09-08] MEDS: ASPIRIN 325 MG TAB PO SCH (09:49)
[2016-09-08] MEDS: COLCHICINE 0.6 MG TAB PO SCH (09:49)
[2016-09-08] MEDS: OXYBUTYNIN XL 5 MG TAB.ER.24 PO SCH (09:49)
[2016-09-08] MEDS: HYDROcodone/APAP 5-325MG 1 EACH TAB PO PRN (09:55)
[2016-09-08] MEDS ORDERED: VANCOMYCIN TROUGH DUE 1 EACH MISC MISCELLANE ONE (11:30)
[2016-09-08 12:04] LABS: Anion Gap 12 mmol/L; Blood Urea Nitrogen 12 mg/dL (9-20); Calcium 8.5 mg/dL (8.4-10.2); Carbon Dioxide 25 mmol/L (22-30); Chloride 105 mmol/L (98-107); Glucose 92 mg/dL (74-99); Non-African American GFR(MDRD) >60 (>60 ml/min/1.73 sqM); Potassium 4.1 mmol/L (3.5-5.1); Sodium 142 mmol/L (137-145)
[2016-09-08] MEDS: SODIUM CHLORIDE 0.9% 1,000 ML IV SCH (12:24)
--- NOTE | 2016-09-08 13:15 | P.DS ---
Providers Date of admission: 09/06/16 11:07 Expected date of discharge: 09/08/16 Attending physician: MD Dr. Alexi Alvares Consults: 09/06/16 11:10 Consult Physician Routine Consulting Provider: Masoud Westbrook Consult Reason/Comments: septic arthritis Do you want consulting provider notified?: Already Contacted 09/06/16 16:01 Consult Physician Urgent Consulting Provider: Anjel Jones Consult Reason/Comments: Fever; possible septic arthritis Do you want consulting provider notified?: Yes Hematology, Dr. Palmer Primary care physician: Alessandro Lyon Hospital Course: Final diagnoses: 1. Right ankle pain with redness, gouty arthritis; doubt septic arthritis as patient without leukocytosis, fever or chills. 2. Acute DVT of right lower popliteal vein, non-occlusive. 3. Diabetes mellitus type 2 4. Hypertension 5. Hyperlipidemia 6. Chronic kidney disease, stage II 7. Dementia Hospital course: This is a 70-year-old gentleman admitted with right ankle pain without recent trauma reported, with gait dysfunction. Evaluated by orthopedic surgeon and infectious disease. X-rays did not report acute dislocations, fractures or acute trauma of foot; evidence of plantar calcaneus. Received vancomycin empirically. Cultures currently negative, CRP elevated with no antibiotics recommended at discharge per ID. Uric acid level 8.9. Significant clinical improvement on colchicine. Venous Doppler reporting small nonocclusive DVT within the lower right popliteal vein, maintained on Lovenox. Evaluated by Dr. Palmer, hematology regarding DVT with anticoagulation recommended for 3 months. Creatinine elevated on admission at 1.26, baseline unknown. Discontinued hydrochlorothiazide, administered IV fluids with creatinine down to 0.89 on discharge. Evaluated by PT/OT and subacute rehab recommended at discharge. Patient is being discharged to [facility] in a stable condition with guarded prognosis. Microbiology 09/05/16 12:50 Blood Blood Culture - Preliminary No Growth after 48 hours 09/05/16 14:08 Urine,Catheterized Urine Culture - Final Patient Condition at Discharge: Stable Plan - Discharge Summary New Discharge Prescriptions: Colchicine [Colcrys] 0.6 mg PO DIRECTED #45 tab INSULIN LISPRO (HumaLOG) [humaLOG] 0 unit SQ ACHS #1 vial Rivaroxaban [Xarelto Starter Pack] 1 each PO DIRECTED #1 pkg Discharge Medication List Aspirin 325 mg PO DAILY 03/10/16 [History] ARIPiprazole [Abilify] 10 mg PO HS 08/15/16 [History] Divalproex ER [Depakote ER] 1,000 mg PO HS 08/15/16 [History] Mirabegron [Myrbetriq] 50 mg PO DAILY 08/15/16 [History] amLODIPine [Norvasc] 10 mg PO DAILY #0 tab 08/20/16 [Rx] Atorvastatin [Lipitor] 20 mg PO HS 09/01/16 [History] Acetaminophen Tab [Tylenol] 500 mg PO Q6HR PRN 09/05/16 [History] Fish Oil/Dha/Epa [Fish Oil 1,200 mg Fish Oil] 1 cap PO BID 09/05/16 [History] Colchicine [Colcrys] 0.6 mg PO DIRECTED #45 tab 09/08/16 [Rx] HYDROcodone/APAP 5-325MG [[place] 5-325] 1 tab PO Q6HR PRN #20 tab 09/08/16 [Rx] INSULIN LISPRO (HumaLOG) [humaLOG] 0 unit SQ ACHS #1 vial 09/08/16 [Rx] Rivaroxaban [Xarelto Starter Pack] 1 each PO DIRECTED #1 pkg 09/08/16 [Rx] Follow up Appointment(s)/Referral(s): Alessandro Lyon MD [Primary Care Provider] - 1 Week (After DC from [facility]) David Palmer MD [STAFF PHYSICIAN] - As Needed Alexis Dupree MD [STAFF PHYSICIAN] - 3 Days (While at [facility]) Patient Instructions/Handouts: Type 2 Diabetes in Adults (DC) Activity/Diet/Wound Care/Special Instructions: [facility] BMP in 3 dAYS No antibiotics as per ID dIET: Renal, consistent carb Accu-Cheks before meals and at bedtime Activity: As tolerated Discharge Disposition: TRANSFER TO SNF/F
== END 2016-09-08 15:24 | DRG 301 ==
LOC: EC 11:38 → 4MS4W 15:17 → OBSVTOIN 09-06 11:07
PROVIDERS: ADMIT Internal Medicine; ATTEND Internal Medicine
DX: I82.431 Acute embolism and thrombosis of right popliteal vein (principal); E11.22 Type 2 diabetes mellitus with diabetic chronic kidney disease; F03.90 Unspecified dementia, unspecified severity, without behavioral disturbance, psychotic disturbance, mood disturbance, and anxiety; J44.9 Chronic obstructive pulmonary disease, unspecified; N18.3 Chronic kidney disease, stage 3 (moderate); I12.9 Hypertensive chronic kidney disease with stage 1 through stage 4 chronic kidney disease, or unspecified chronic kidney disease; M77.31 Calcaneal spur, right foot; M10.9 Gout, unspecified; R53.1 Weakness; M19.90 Unspecified osteoarthritis, unspecified site; R00.1 Bradycardia, unspecified; R79.82 Elevated C-reactive protein (CRP); M79.672 Pain in left foot; D63.8 Anemia in other chronic diseases classified elsewhere; R50.9 Fever, unspecified; N40.0 Benign prostatic hyperplasia without lower urinary tract symptoms; R26.2 Difficulty in walking, not elsewhere classified; M25.571 Pain in right ankle and joints of right foot; E78.5 Hyperlipidemia, unspecified; G47.30 Sleep apnea, unspecified; H91.90 Unspecified hearing loss, unspecified ear; J30.2 Other seasonal allergic rhinitis; R63.5 Abnormal weight gain; F32.9 Major depressive disorder, single episode, unspecified; F41.9 Anxiety disorder, unspecified; Z91.81 History of falling; Z96.643 Presence of artificial hip joint, bilateral; Z96.653 Presence of artificial knee joint, bilateral; Z97.4 Presence of external hearing-aid; Z86.718 Personal history of other venous thrombosis and embolism; Z82.49 Family history of ischemic heart disease and other diseases of the circulatory system; Z88.8 Allergy status to other drugs, medicaments and biological substances; Z91.041 Radiographic dye allergy status; Z79.891 Long term (current) use of opiate analgesic; Z79.899 Other long term (current) drug therapy; Z83.3 Family history of diabetes mellitus; Z79.82 Long term (current) use of aspirin; Z87.891 Personal history of nicotine dependence; Z79.01 Long term (current) use of anticoagulants
CPT/HCPCS: 36415; 71020; 80048; 80053; 81003; 82550; 82553; 84134; 84484; 84550; 85025; 85027; 85610; 85652; 85730; 86140; 87040; 87086; 93005; 96361; 96365; 96372; 99285

== ENCOUNTER 2016-10-13 12:27 | Inpatient (IN) | payer MEDICARE, BC ==
[2016-10-13] MEDS ORDERED: MORPHINE SULFATE 2 MG/ML SYRINGE IVP STA (13:37)
[2016-10-13] MEDS ORDERED: SODIUM CHLORIDE 0.9% 1,000 ML IV STA (13:37)
[2016-10-13] MEDS ORDERED: ONDANSETRON 4 MG/2 ML VIAL IVP STA (13:37)
--- NOTE | 2016-10-13 14:24 | ED ---
Lower Extremity Injury HPI - General Chief Complaint: Extremity Injury, Lower Stated Complaint: Gout Time Seen by Provider: 10/13/16 13:09 Source: patient, family Mode of arrival: wheelchair Limitations: physical limitation - History of Present Illness Initial Comments: 70 years old male presented with some right-sided foot pain he is not able to bear weight he was diagnosed with a DVT in the same leg as a few weeks ago and gout has affected the same foot in the past. is concerned about his poor oral intake and she is concerned he looks pale he is weak he sleeps quite a bit his appetite is poor and he was started on a 0 a few weeks ago at the time when he was diagnosed with a DVT. He denies any headaches no chest pain or shortness of breath no abdominal pain he has been voiding more frequently. No symptoms of TIA or CVA - Related Data Home Medications Medication Instructions Recorded Confirmed ARIPiprazole [Abilify] 10 mg PO HS 08/15/16 10/13/16 Divalproex ER [Depakote ER] 1,000 mg PO HS 08/15/16 10/13/16 Mirabegron [Myrbetriq] 50 mg PO HS 08/15/16 10/13/16 Atorvastatin [Lipitor] 20 mg PO HS 09/01/16 10/13/16 Acetaminophen Tab [Tylenol] 1,000 mg PO Q6HR PRN 09/05/16 10/13/16 Fish Oil/Dha/Epa [Fish Oil 1,200 1 cap PO BID 09/05/16 10/13/16 mg Fish Oil] Aspirin 81 mg PO DAILY 10/13/16 10/13/16 Febuxostat [Uloric] 40 mg PO DAILY 10/13/16 10/13/16 Ferrous Sulfate [Feosol] 325 mg PO DAILY 10/13/16 10/13/16 Rivaroxaban [Xarelto] 20 mg PO DAILY 10/13/16 10/13/16 Previous Rx's Medication Instructions Recorded amLODIPine [Norvasc] 10 mg PO DAILY #0 tab 08/20/16 HYDROcodone/APAP 5-325MG [[place] 1 tab PO Q6HR PRN #20 tab 09/08/16 5-325] Allergies Allergy/AdvReac Type Severity Reaction Status Date / Time Iodinated Contrast Media - Allergy Unknown Verified 10/13/16 13:51 Oral and donepezil [From Aricept] AdvReac psychiatric Verified 10/13/16 13:51 Review of Systems ROS Statement: Those systems with pertinent positive or pertinent negative responses have been documented in the HPI. ROS Other: All systems not noted in ROS Statement are negative. Past Medical History Past Medical History: COPD, Dementia, Diabetes Mellitus, Deep Vein Thrombosis ( DVT), Hyperlipidemia, Hypertension, Memory Impairment, Osteoarthritis (OA), Prostate Disorder, Sleep Apnea/CPAP/BIPAP Additional Past Medical History / Comment(s): DVT AFTER KNEE SX,ENLARGED PROSTATE, EARLY DEMENTIA," SHORT TERM MEMORY PROBLEMS", PAST FALL HIT HEAD", PER PAST ADMIT FOR ACUTE KIDNEY FAILIURE-SEES A KIDNEY DR. SINUS/SEASONAL ALLERGY, GOUT, SLEEP APNEA BUT ABLE TO USE CPAP/MASK DOES'NT FIT. History of Any Multi-Drug Resistant Organisms: None Reported Past Surgical History: Hernia Repair, Joint Replacement, Orthopedic Surgery Additional Past Surgical History / Comment(s): nasal, bilateral knee REPLACMENTS , CARIDAD HIP REPLACEMENTS, RT CARPAL TUNNEL,CARIDAD INGUINAL HERNIA REPAIRS Past Anesthesia/Blood Transfusion Reactions: No Reported Reaction Past Psychological History: Anxiety, Depression Additional Psychological History / Comment(s): AT TIME OF THIS ADMIT PT DENIES ANY DEPRESSION OR THOUGHTS OF WANTING TO HARM SELF. , his is his primary caregiver. 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 No experience. No international travel. Stopped tobacco smoking in 1989. No significant alcohol or recreational drug use or related at this time. No international travel. No pets in the home Smoking Status: Former smoker Past Alcohol Use History: None Reported Additional Past Alcohol Use History / Comment(s): STARTED SMOKING IN 1956, QUIT IN 1989 WAS SMOKING 1 PPD. Past Drug Use History: None Reported - Past Family History Father Family Medical History: Diabetes Mellitus, Myocardial Infarction ([place]) Additional Family Medical History / Comment(s): AT AGE 62 FROM [place] Mother Family Medical History: Diabetes Mellitus Additional Family Medical History / Comment(s): IN HER 40'S General Exam - General Exam Comments Initial Comments: General: The patient is awake and alert, looks pale, GCS is 15 Skin: Skin is warm and dry and no rashes or lesions are noted. Eye: Pupils are equal, round and reactive to light, extra-ocular movements are intact; there is normal conjunctiva bilaterally. Ears, nose, mouth and throat: There are moist mucous membranes and no oral lesions. Neck: The neck is supple, there is no tenderness Cardiovascular: Rate is regular, no murmur noticed Respiratory: To auscultation bilateral, decreased breath sounds bilaterally Gastrointestinal: Soft, non-distended, non-tender abdomen without masses or organomegaly noted. There is no rebound or guarding present. Bowel sounds are unremarkable. Back: There is no tenderness to palpation in the midline. There is no obvious deformity. Musculoskeletal: Noticed some swelling on the dorsal surface of the right foot swelling around the both ankles and is mildly tender over the mid calf area no typical presentation consistent with a gout noticed Neurological: CN II-XII intact, Cranial nerves III through XII are intact. There are no obvious motor or sensory deficits. Coordination appears grossly intact. Speech is normal. Psychiatric: Cooperative, appropriate mood & affect, normal judgment, since seems depressed denies any suicidal or homicidal ideation Limitations: physical limitation Course Vital Signs 10/13/16 10/13/16 10/13/16 12:33 16:52 17:07 Temperature 98.9 F 97.9 F 97.2 F L Pulse Rate 61 55 L 64 Respiratory 20 16 16 Rate Blood Pressure 151/67 151/69 151/69 O2 Sat by Pulse 98 96 Oximetry KG is a sinus bradycardia ventricular rate is 58 AK interval is 194 QRS duration is 82 QT/QTc is 4/396, devious this EKG does not reveal any ST elevation or ST depression him and noticed much of fall artifacts in this EKG Patient's labs were reviewed and those were discussed with the family his hemoglobin is up from his baseline that indicates he has some dehydration BUN is also elevated troponin is negative so his his EKG a call blood is positive pain that I watched him in the room ambulating or transferring from chair to the bed this was a 3 people with the job to transfer him from chair to the bed though his foot x-ray is normal his uric acid is normal he definitely needs a it a bit of irritation as well as hydration considering his history of renal failure and considering his poor oral intake and think he will benefit from come in and spoke with Dr. Ortega he is agreeable with admission Medical Decision Making - Lab Data Result diagrams: 10/13/16 14:11 10/13/16 14:11 Lab Results 10/13/16 10/13/16 10/13/16 Range/Units 13:35 14:11 14:11 WBC 10.0 (3.8-10.6) k/uL RBC 4.03 L (4.30-5.90) m/uL Hgb 12.0 L (13.0-17.5) gm/dL Hct 36.7 L (39.0-53.0) % MCV 91.0 (80.0-100.0) fL MCH 29.9 (25.0-35.0) pg MCHC 32.8 (31.0-37.0) g/dL RDW 13.8 (11.5-15.5) % Plt Count 231 (150-450) k/uL Neutrophils % 85 % Lymphocytes % 8 % Monocytes % 6 % Eosinophils % 0 % Basophils % 0 % Neutrophils # 8.5 H (1.3-7.7) k/uL Lymphocytes # 0.8 L (1.0-4.8) k/uL Monocytes # 0.6 (0-1.0) k/uL Eosinophils # 0.0 (0-0.7) k/uL Basophils # 0.0 (0-0.2) k/uL Sodium 141 (137-145) mmol/L Potassium 4.5 (3.5-5.1) mmol/L Chloride 103 (98-107) mmol/L Carbon Dioxide 26 (22-30) mmol/L Anion Gap 12 mmol/L BUN 22 H (9-20) mg/dL Creatinine 1.07 (0.66-1.25) mg/dL Est GFR (MDRD) Af Amer >60 (>60 ml/min/1.73 sqM) Est GFR (MDRD) Non-Af >60 (>60 ml/min/1.73 sqM) Glucose 113 H (74-99) mg/dL Uric Acid 4.5 (3.5-8.5) mg/dL Calcium 9.2 (8.4-10.2) mg/dL Total Bilirubin 1.5 H (0.2-1.3) mg/dL AST 13 L (17-59) U/L ALT 23 (21-72) U/L Alkaline Phosphatase 60 (38-126) U/L Troponin I (0.000-0.034) ng/mL Total Protein 6.3 (6.3-8.2) g/dL Albumin 3.6 (3.5-5.0) g/dL Stool Occult Blood Positive (Negative) 10/13/16 Range/Units 14:11 WBC (3.8-10.6) k/uL RBC (4.30-5.90) m/uL Hgb (13.0-17.5) gm/dL Hct (39.0-53.0) % MCV (80.0-100.0) fL MCH (25.0-35.0) pg MCHC (31.0-37.0) g/dL RDW (11.5-15.5) % Plt Count (150-450) k/uL Neutrophils % % Lymphocytes % % Monocytes % % Eosinophils % % Basophils % % Neutrophils # (1.3-7.7) k/uL Lymphocytes # (1.0-4.8) k/uL Monocytes # (0-1.0) k/uL Eosinophils # (0-0.7) k/uL Basophils # (0-0.2) k/uL Sodium (137-145) mmol/L Potassium (3.5-5.1) mmol/L Chloride (98-107) mmol/L Carbon Dioxide (22-30) mmol/L Anion Gap mmol/L BUN (9-20) mg/dL Creatinine (0.66-1.25) mg/dL Est GFR (MDRD) Af Amer (>60 ml/min/1.73 sqM) Est GFR (MDRD) Non-Af (>60 ml/min/1.73 sqM) Glucose (74-99) mg/dL Uric Acid (3.5-8.5) mg/dL Calcium (8.4-10.2) mg/dL Total Bilirubin (0.2-1.3) mg/dL AST (17-59) U/L ALT (21-72) U/L Alkaline Phosphatase (38-126) U/L Troponin I <0.012 (0.000-0.034) ng/mL Total Protein (6.3-8.2) g/dL Albumin (3.5-5.0) g/dL Stool Occult Blood (Negative) Disposition Clinical Impression: Fatigue, Dehydration, Right leg pain Disposition: ADMITTED IP TO THIS [facility] Condition: Fair Referrals: Alessandro Lyon MD [Primary Care Provider] - 1-2 days
[2016-10-13 14:36] LABS: Basophils % (A) 0 %; CH 29.9; CHCM 32.9; Eosinophils % (A) 0 %; HCT 36.7 % (39.0-53.0); HDW 3.26; Luc # (Auto) 0.07; Luc % (Auto) 1; Lymphocytes # (A) 0.8 k/uL (1.0-4.8); Lymphocytes % (A) 8 %; MCH 29.9 pg (25.0-35.0); MCHC 32.8 g/dL (31.0-37.0); Mean Platelet Volume 6.8; Monocytes # (A) 0.6 k/uL (0-1.0); Monocytes % (A) 6 %; Neutrophils # (A) 8.5 k/uL (1.3-7.7); Neutrophils % (A) 85 %; RBC 4.03 m/uL (4.30-5.90); RDW 13.8 % (11.5-15.5); WBC (Perox) 10.25
[2016-10-13 14:39] LABS: ALT 23 U/L (21-72); AST 13 U/L (17-59); Alkaline Phosphatase 60 U/L (38-126); Anion Gap 12 mmol/L; Blood Urea Nitrogen 22 mg/dL (9-20); Calcium 9.2 mg/dL (8.4-10.2); Carbon Dioxide 26 mmol/L (22-30); Chloride 103 mmol/L (98-107); Glucose 113 mg/dL (74-99); Non-African American GFR(MDRD) >60 (>60 ml/min/1.73 sqM); Potassium 4.5 mmol/L (3.5-5.1); Sodium 141 mmol/L (137-145); Total Bilirubin 1.5 mg/dL (0.2-1.3); Total Protein 6.3 g/dL (6.3-8.2)
[2016-10-13 15:08] LABS: Uric Acid 4.5 mg/dL (3.5-8.5)
--- NOTE | 2016-10-13 16:05 | US ---
EXAMINATION TYPE: US venous doppler duplex LE RT DATE OF EXAM: 10/13/2016 3:52 PM COMPARISON: 09/05/2016 CLINICAL HISTORY: Pain. SIDE PERFORMED: Right VESSELS IMAGED: External Iliac Vein (EIV) Common Femoral Vein Deep Femoral Vein Greater Saphenous Vein * Femoral Vein Popliteal Vein Small Saphenous Vein * Proximal Calf Veins (* superficial vessels) Lower popliteal hypoechoic foci seen in previous study not seen on this study, color fills wall vesse l compressible to wall and Right Leg: Negative for DVT No popliteal fossa lesion is seen. IMPRESSION: THIS EXAMINATION IS NEGATIVE FOR DVT WITHIN THE RIGHT LEG.
--- NOTE | 2016-10-13 17:46 | XR ---
EXAMINATION TYPE: XR foot complete RT DATE OF EXAM: 10/13/2016 5:36 PM COMPARISON: 09/01/2016 HISTORY: Pain TECHNIQUE: 3 views FINDINGS: There is a large plantar calcaneal spur. There is hyperextension deformity of the MP joints . I see no fracture. There are no erosions. IMPRESSION: Multiple hammer toe deformity. No fracture seen. Calcaneal spurring. No significant casey e compared to last exam.
[2016-10-13] MEDS ORDERED: NALOXONE 0.4 MG/ML 1 ML VIAL IV PRN (18:03)
[2016-10-13] MEDS ORDERED: ACETAMINOPHEN TAB 500 MG TAB PO PRN (18:08)
[2016-10-13 19:52] LABS: Appearance,Urine Clear (Clear); Bilirubin,Urine Negative (Negative); Glucose,Urine (UA) Negative (Negative); Ketones,Urine 1+ (Negative); Leukocyte Esterase,Urine Negative (Negative); Nitrite,Urine Negative (Negative); Protein,Urine Negative (Negative); Specific Gravity,Urine 1.019 (1.001-1.035); UA Billing (MACRO vs. MICRO) CHEM; Urobilinogen,Urine <2.0 mg/dL (<2.0)
[2016-10-13] MEDS: ARIPiprazole 10 MG TAB PO SCH (20:49)
[2016-10-13] MEDS: DIVALPROEX ER 500 MG TAB.ER.24H PO SCH (20:49)
[2016-10-13] MEDS: ATORVASTATIN 20 MG TAB PO SCH (20:49)
[2016-10-13] MEDS: HYDROmorphone 2 MG TAB PO PRN (20:49)
[2016-10-13] MEDS: OXYBUTYNIN 10 MG TAB.ER.24 PO SCH (20:49)
[2016-10-13 20:54] LABS: Glucose,Whole Blood 163 mg/dL (75-99)
[2016-10-13] MEDS ORDERED: NON-FORMULARY DRUG (Fish Oil/Dha/Epa [Fish Oil 1,200 Mg Fish Oil] 1 CAP) PO SCH (21:00)
[2016-10-14] MEDS: HYDROmorphone 2 MG TAB PO PRN (02:07)
[2016-10-14] MEDS: FERROUS SULFATE 325 MG TAB PO SCH (08:33)
[2016-10-14] MEDS: ALLOPURINOL 100 MG TAB PO SCH (08:33)
[2016-10-14] MEDS: ASPIRIN 81 MG CHEW PO SCH (08:33)
[2016-10-14] MEDS: RIVAROXABAN 10 MG TAB PO SCH (08:34)
[2016-10-14] MEDS: amLODIPine 10 MG TAB PO SCH (08:34)
[2016-10-14 14:59] VITALS: BMI 30.2
--- NOTE | 2016-10-14 17:49 | P.HPIM ---
History of Present Illness Patient was brought to the emergency room with complaints of right-sided foot pain is unable to bear weight. Patient has intermittent episodes where he's unable to eat at or drank and becomes dehydrated. Patient history dementia Review of Systems Constitutional: Reports fatigue Musculoskeletal: right: foot pain Past Medical History Past Medical History: COPD, Dementia, Diabetes Mellitus, Deep Vein Thrombosis ( DVT), Hyperlipidemia, Hypertension, Memory Impairment, Osteoarthritis (OA), Prostate Disorder, Sleep Apnea/CPAP/BIPAP Additional Past Medical History / Comment(s): DVT AFTER KNEE SX,ENLARGED PROSTATE, EARLY DEMENTIA," SHORT TERM MEMORY PROBLEMS", PAST FALL HIT HEAD", PER PAST ADMIT FOR ACUTE KIDNEY FAILURE-SEES A KIDNEY DR. SINUS/SEASONAL ALLERGY, GOUT, SLEEP APNEA BUT ABLE TO USE CPAP/MASK DOES'NT FIT. pt stated lost 80# over 7 months. History of Any Multi-Drug Resistant Organisms: None Reported Past Surgical History: Hernia Repair, Joint Replacement, Orthopedic Surgery Additional Past Surgical History / Comment(s): nasal, bilateral knee REPLACMENTS , CARIDAD HIP REPLACEMENTS, RT CARPAL TUNNEL,CARIDAD INGUINAL HERNIA REPAIRS Past Anesthesia/Blood Transfusion Reactions: No Reported Reaction Past Psychological History: Anxiety, Depression Additional Psychological History / Comment(s): AT TIME OF THIS ADMIT PT DENIES ANY DEPRESSION OR THOUGHTS OF WANTING TO HARM SELF. , his is his primary caregiver, uses a cane/wlker at home also has nebulizer and cpap machine. 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 lives in single story home that has 3 steps in which to enter. no pets. No experience. No international travel Smoking Status: Former smoker Past Alcohol Use History: None Reported Additional Past Alcohol Use History / Comment(s): STARTED SMOKING IN 6, QUIT IN 1989 WAS SMOKING 1 PPD. Past Drug Use History: None Reported - Past Family History Father Family Medical History: Diabetes Mellitus, Myocardial Infarction ([place]) Additional Family Medical History / Comment(s): AT AGE 62 FROM [place] Mother Family Medical History: Diabetes Mellitus Additional Family Medical History / Comment(s): IN HER 40'S Medications and Allergies Home Medications Medication Instructions Recorded Confirmed Type ARIPiprazole [Abilify] 10 mg PO HS 08/15/16 10/13/16 History Divalproex ER [Depakote ER] 1,000 mg PO HS 08/15/16 10/13/16 History Mirabegron [Myrbetriq] 50 mg PO HS 08/15/16 10/13/16 History Atorvastatin [Lipitor] 20 mg PO HS 09/01/16 10/13/16 History Acetaminophen Tab [Tylenol] 1,000 mg PO Q6HR PRN 09/05/16 10/13/16 History Fish Oil/Dha/Epa [Fish Oil 1,200 1 cap PO BID 09/05/16 10/13/16 History mg Fish Oil] Aspirin 81 mg PO DAILY 10/13/16 10/13/16 History Febuxostat [Uloric] 40 mg PO DAILY 10/13/16 10/13/16 History Ferrous Sulfate [Feosol] 325 mg PO DAILY 10/13/16 10/13/16 History Rivaroxaban [Xarelto] 20 mg PO DAILY 10/13/16 10/13/16 History Allergies Allergy/AdvReac Type Severity Reaction Status Date / Time Iodinated Contrast Media - Allergy Unknown Verified 10/13/16 13:51 Oral and donepezil [From Aricept] AdvReac psychiatric Verified 10/13/16 13:51 Physical Exam Vitals: Vital Signs Temp Pulse Resp BP Pulse Ox 10/14/16 15:00 100.3 F H 67 16 148/67 93 L 10/14/16 12:00 97.9 F 68 16 130/68 94 L Intake and Output 10/14/16 10/14/16 10/14/16 06:59 14:59 22:59 Intake Total 800 Balance 800 Intake: IV 800 Sodium Chloride 0.9% 1, 800 000 ml @ 100 mls/hr IV . Q10H STA Rx#:[id number] Other: Voiding Method Urinal Weight 90.265 kg Patient Weight 10/15/16 06:59 Weight 90.265 kg - Constitutional General appearance: mild distress - EENT Eyes: PERRLA Ears: bilateral: normal - Respiratory Respiratory: bilateral: CTA - Cardiovascular Rhythm: regular - Gastrointestinal General gastrointestinal: soft - Integumentary Integumentary: normal - Neurologic Noted to have pain in right foot also right leg weakness Neurologic: CNII-XII intact Results CBC & Chem 7: 10/13/16 14:11 10/13/16 14:11 Venous US: report reviewed Thrombosis Risk Factor Assmnt - Choose All That Apply Any of the Below Risk Factors Present?: Yes Each Factor Represents 1 point: Abnormal pulmonary function (COPD), Obesity ( BMI >25), Swollen legs (current) Other Risk Factors: Yes Each Risk Factor Represents 2 Points: Age 61-74 years Each Risk Factor Represents 3 Points: History of DVT/PE Other congenital or acquired thrombophilia - If yes, enter type in comment: No Thrombosis Risk Factor Assessment Total Risk Factor Score: 8 Thrombosis Risk Factor Assessment Level: High Risk Assessment and Plan Plan: Assessment fatigue dehydration right foot pain history of COPD dementia history DVT hypertension hyperlipidemia sleep apnea osteoarthritis chronic renal failure Plan consultation with pulmonology
[2016-10-14] MEDS: DIVALPROEX ER 500 MG TAB.ER.24H PO SCH (21:24)
[2016-10-14] MEDS: ARIPiprazole 10 MG TAB PO SCH (21:24)
[2016-10-14] MEDS: OXYBUTYNIN 10 MG TAB.ER.24 PO SCH (21:24)
[2016-10-14] MEDS: ATORVASTATIN 20 MG TAB PO SCH (21:24)
[2016-10-14] MEDS ORDERED: Magnesium Replacement Protocol 1 EACH MISC MISCELLANE PRN (21:57)
--- NOTE | 2016-10-14 22:45 | XR ---
EXAMINATION TYPE: XR chest 1V portable DATE OF EXAM: 10/14/2016 10:38 PM COMPARISON: 09/05/2016 HISTORY: Fever and weakness TECHNIQUE: Single frontal view of the chest is obtained. FINDINGS: There is no heart failure nor confluent pneumonic infiltrate. There are no hilar masses. C ostophrenic angles are clear. Bony thorax appears intact. IMPRESSION: No active cardiopulmonary disease. No change.
[2016-10-14] MEDS: SODIUM CHLORIDE 0.9% 1,000 ML IV SCH (23:27)
[2016-10-14 23:41] LABS: C Reactive Protein 273.5 mg/L (<10.0); Magnesium 1.7 mg/dL (1.6-2.3)
[2016-10-15] MEDS: MAGNESIUM SULFATE-D5W PMX 1 GM in DEXTROSE/WATER 1 100ML.BAG IVPB SCH ×2 (00:42→01:46)
[2016-10-15] MEDS: SODIUM CHLORIDE 0.9% 1,000 ML IV SCH ×3 (07:57→17:47)
[2016-10-15] MEDS: ALLOPURINOL 100 MG TAB PO SCH (07:59)
[2016-10-15] MEDS: ASPIRIN 81 MG CHEW PO SCH (08:02)
[2016-10-15] MEDS: RIVAROXABAN 10 MG TAB PO SCH (08:02)
[2016-10-15] MEDS: SILVER sulfADIAZINE Cream 400 GM 1 APPLIC APPLIC TOPICAL SCH ×2 (08:03→21:25)
[2016-10-15] MEDS: FERROUS SULFATE 325 MG TAB PO SCH (08:03)
[2016-10-15] MEDS: amLODIPine 10 MG TAB PO SCH (08:03)
[2016-10-15 09:30] LABS: Basophils % (A) 0 %; CH 29.6; CHCM 33.6; Eosinophils # (A) 0.1 k/uL (0-0.7); Eosinophils % (A) 1 %; HCT 31.7 % (39.0-53.0); HGB 10.9 gm/dL (13.0-17.5); Luc # (Auto) 0.08; Luc % (Auto) 1; Lymphocytes # (A) 0.9 k/uL (1.0-4.8); Lymphocytes % (A) 7 %; MCH 30.2 pg (25.0-35.0); MCHC 34.2 g/dL (31.0-37.0); MCV 88.4 fL (80.0-100.0); Mean Platelet Volume 7.8; Monocytes # (A) 0.8 k/uL (0-1.0); Monocytes % (A) 6 %; Neutrophils % (A) 86 %; RBC 3.59 m/uL (4.30-5.90); RDW 13.9 % (11.5-15.5); WBC 12.8 k/uL (3.8-10.6); WBC (Perox) 12.35
[2016-10-15 10:20] LABS: ALT 20 U/L (21-72); AST 16 U/L (17-59); Alkaline Phosphatase 49 U/L (38-126); Anion Gap 10 mmol/L; Blood Urea Nitrogen 17 mg/dL (9-20); Calcium 8.6 mg/dL (8.4-10.2); Carbon Dioxide 26 mmol/L (22-30); Chloride 105 mmol/L (98-107); Glucose 133 mg/dL (74-99); Magnesium 2.2 mg/dL (1.6-2.3); Non-African American GFR(MDRD) >60 (>60 ml/min/1.73 sqM); Potassium 4.5 mmol/L (3.5-5.1); Sodium 141 mmol/L (137-145); Total Bilirubin 1.2 mg/dL (0.2-1.3); Total Protein 5.3 g/dL (6.3-8.2)
[2016-10-15] MEDS: HYDROcodone/APAP 5-325MG 1 EACH TAB PO PRN ×2 (11:01→18:31)
--- NOTE | 2016-10-15 11:43 | P.CONS ---
History of Present Illness - Reason for Consult Consult date: 10/15/16 weight loss decreased appetitie Requesting physician: Alessandro Lyon - History of Present Illness 70-year-old gentleman patient of Dr. Alessandro Lyon with a past history dementia, DVT, hyperlipidemia, chronic kidney disease stage II, hypertension, diabetes mellitus, sleep apnea, anxiety, depression. Admitted with fever T-max 101.2, persistent right foot pain unable to bear weight with recent diagnosis of gouty arthritis nonocclusive DVT right lower extremity August. Patient's spouse reports that he has had poor oral intake sleeping more often since his diagnosis of DVT. Consultation requested for poor oral intake. Hemoglobin 12.0. White count 10. C-reactive protein 273.5 however it was 242.2 09/07/2016. ESR 48 previously 83 on 09/07/2016. BUN 22. Creatinine 1.0. Hemoccult stool positive. Bilateral venous Doppler negative for DVT within the right leg. Hemoglobin 12.0 previously 9.4 on 09/07/2016. Prior to his hospital physician in August patient was tolerating a diet and maintaining his weight without difficulty. 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 Since the end of August with difficulties with his right foot he has had a poor appetite. Denies nausea vomiting hematemesis hematochezia or melena. Denies abdominal pain. He did eat about 75% of his breakfast this morning. Review of Systems Constitutional: Denies fever, chills, sweats, weight gain, or loss. HEENT: Negative for migraines, blurred vision or loss, earaches, drainage, tinnitus, oral mucosal lesions, dysphagia, or odynophagia. Cardiac: Hypertension. Hyperlipidemia. Negative for chest pain, arrhythmias, or palpitation. Respiratory: Sleep apnea. COPD. Negative for shortness of breath, hemoptysis, cough, or sputum production. Gastrointestinal: See HPI for pertinent findings. Genitourinary: BPH. Negative for hematuria, urgency, frequency, polyuria, dysuria, or penile discharge. Musculoskeletal: Osteoarthritis. Neurologic: Negative for stroke or TIA. Endocrine: Diabetes mellitus. Negative for thyroid problems. Hematology: Recent nonocclusive DVT right lower extremity. Skin: Negative for rash or itching. Psychiatric: History of dementia. Anxiety. Depression. All systems: negative (See HPI) Past Medical History Past Medical History: COPD, Dementia, Diabetes Mellitus, Deep Vein Thrombosis ( DVT), Hyperlipidemia, Hypertension, Memory Impairment, Osteoarthritis (OA), Prostate Disorder, Sleep Apnea/CPAP/BIPAP Additional Past Medical History / Comment(s): DVT AFTER KNEE SX,ENLARGED PROSTATE, EARLY DEMENTIA," SHORT TERM MEMORY PROBLEMS", PAST FALL HIT HEAD", PER PAST ADMIT FOR ACUTE KIDNEY FAILURE-SEES A KIDNEY DR. SINUS/SEASONAL ALLERGY, GOUT, SLEEP APNEA BUT ABLE TO USE CPAP/MASK DOES'NT FIT. pt stated lost 80# over 7 months. History of Any Multi-Drug Resistant Organisms: None Reported Past Surgical History: Hernia Repair, Joint Replacement, Orthopedic Surgery Additional Past Surgical History / Comment(s): nasal, bilateral knee REPLACMENTS , CARIDAD HIP REPLACEMENTS, RT CARPAL TUNNEL,CARIDAD INGUINAL HERNIA REPAIRS Past Anesthesia/Blood Transfusion Reactions: No Reported Reaction Past Psychological History: Anxiety, Depression Additional Psychological History / Comment(s): AT TIME OF THIS ADMIT PT DENIES ANY DEPRESSION OR THOUGHTS OF WANTING TO HARM SELF. , his is his primary caregiver, uses a cane/wlker at home also has nebulizer and cpap machine. 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 lives in single story home that has 3 steps in which to enter. no pets. No experience. No international travel Smoking Status: Former smoker Past Alcohol Use History: None Reported Additional Past Alcohol Use History / Comment(s): STARTED SMOKING IN 1956, QUIT IN 1989 WAS SMOKING 1 PPD. Past Drug Use History: None Reported - Past Family History Father Family Medical History: Diabetes Mellitus, Myocardial Infarction ([place]) Additional Family Medical History / Comment(s): AT AGE 62 FROM [place] Mother Family Medical History: Diabetes Mellitus Additional Family Medical History / Comment(s): IN HER 40'S Medications and Allergies Home Medications Medication Instructions Recorded Confirmed Type ARIPiprazole [Abilify] 10 mg PO HS 08/15/16 10/13/16 History Divalproex ER [Depakote ER] 1,000 mg PO HS 08/15/16 10/13/16 History Mirabegron [Myrbetriq] 50 mg PO HS 08/15/16 10/13/16 History Atorvastatin [Lipitor] 20 mg PO HS 09/01/16 10/13/16 History Acetaminophen Tab [Tylenol] 1,000 mg PO Q6HR PRN 09/05/16 10/13/16 History Fish Oil/Dha/Epa [Fish Oil 1,200 1 cap PO BID 09/05/16 10/13/16 History mg Fish Oil] Aspirin 81 mg PO DAILY 10/13/16 10/13/16 History Febuxostat [Uloric] 40 mg PO DAILY 10/13/16 10/13/16 History Ferrous Sulfate [Feosol] 325 mg PO DAILY 10/13/16 10/13/16 History Rivaroxaban [Xarelto] 20 mg PO DAILY 10/13/16 10/13/16 History Allergies Allergy/AdvReac Type Severity Reaction Status Date / Time Iodinated Contrast Media - Allergy Unknown Verified 10/13/16 13:51 Oral and donepezil [From Aricept] AdvReac psychiatric Verified 10/13/16 13:51 Physical Exam Vitals: Vital Signs Temp Pulse Pulse Resp BP Pulse Ox 10/15/16 00:30 99.3 F 96 10/14/16 20:45 101.2 F H 67 16 138/64 91 L 10/14/16 15:00 100.3 F H 67 16 148/67 93 L 10/14/16 12:00 97.9 F 68 16 130/68 94 L Intake and Output 10/14/16 10/15/16 10/15/16 22:59 06:59 14:59 Intake Total 240 1150 Balance 240 1150 Intake: IV 950 Magnesium Sulfate-D5w Pmx 200 1 gm In Dextrose/Water 1 100ml.bag @ 100 mls/hr IVPB Q1H BALAJI Rx#: [id number] Sodium Chloride 0.9% 1, 700 000 ml @ 100 mls/hr IV . Q10H BALAJI Rx#:[id number] cefTRIAXone 1,000 mg In 50 Sodium Chloride 0.9% 50 ml @ 100 mls/hr IVPB Q24HR BALAJI Rx#:[id number] Oral 240 200 Other: Voiding Method Diaper # Voids 1 4 General appearance: The patient is alert, oriented, in no acute distress. HET: Head is normocephalic and atraumatic. Pupils are equal and reactive. Oropharynx is clear without lesions. Neck: Supple without lymphadenopathy. Trachea midline. Heart: S1 S2. Regular rate and rhythm. Lungs: No crackles or wheezes are heard. Abdomen: Soft, nontender, nondistended with bowel sounds. No peritoneal signs. No palpable organomegaly or masses. Extremities: Right foot edematous warm to touch mild erythema with tenderness. Bilateral DP/PT pulses palpable. Neurological: No focal deficits. Strength and sensation are grossly intact. Results CBC & Chem 7: 10/15/16 08:33 10/15/16 08:33 Labs: Abnormal Lab Results - Last 24 Hours (Table) 10/14/16 10/14/16 Range/Units 22:35 22:35 ESR 48 H (0-15) mm/hr C-Reactive Protein 273.5 H (<10.0) mg/L Assessment and Plan (1) Poor appetite Narrative/Plan: Suspect related to recent hospitalization illness and inflammatory process to the right foot. Status: Acute (2) Right foot pain Status: Acute Plan: 1. Advised dietary consultation for nutrition support and calorie count. 2. Pre-albumin. 3. Advise small frequent meals 4-6 times a day with protein shakes 3 times daily as tolerated. 4. Upper endoscopy not planned at this time. We'll continue to follow with you. Thank you for this kind referral and the opportunity to participate in the care of your patient. This consultation was discussed with Dr. Bridges. The impression and plan of care have been directed as dictated.
--- NOTE | 2016-10-15 12:10 | P.PN ---
Subjective Principal diagnosis: patient has persistent complaints of right leg pain noted medial right knee tenderness patient had consultation with GI regarding weight loss and loss of appetite Objective - Vital Signs Vital signs: Vital Signs Temp 98.8 F 10/15/16 07:00 Pulse 59 L 10/15/16 07:00 Resp 16 10/15/16 07:00 BP 152/67 10/15/16 07:00 Pulse Ox 98 10/15/16 07:00 Intake & Output 10/14/16 10/15/16 10/15/16 18:59 06:59 18:59 Intake Total 800 1390 Balance 800 1390 Weight 90.265 kg Intake: IV 800 950 Magnesium Sulfate-D5w Pmx 200 1 gm In Dextrose/Water 1 100ml.bag @ 100 mls/hr IVPB Q1H BALAJI Rx#: [id number] Sodium Chloride 0.9% 1, 700 000 ml @ 100 mls/hr IV . Q10H BALAJI Rx#:[id number] Sodium Chloride 0.9% 1, 800 000 ml @ 100 mls/hr IV . Q10H STA Rx#:[id number] cefTRIAXone 1,000 mg In 50 Sodium Chloride 0.9% 50 ml @ 100 mls/hr IVPB Q24HR BALAJI Rx#:[id number] Oral 440 Other: Voiding Method Urinal Diaper Diaper # Voids 4 - Constitutional General appearance: Present: mild distress, obese - EENT Eyes: Present: PERRLA Ears: bilateral: normal - Neck Neck: Present: normal ROM - Respiratory Respiratory: bilateral: CTA - Cardiovascular Rhythm: regular - Gastrointestinal General gastrointestinal: Present: soft - Integumentary Integumentary: Present: normal - Neurologic Neurologic: Present: CNII-XII intact - Musculoskeletal Musculoskeletal Comment(s): patient complains of right medial knee pain Musculoskeletal: Present: generalized weakness - Psychiatric Psychiatric: Present: A&O x's 3, appropriate affect, intact judgment & insight - Labs CBC & Chem 7: 10/15/16 08:33 10/15/16 08:33 Labs: Abnormal Lab Results - Last 24 Hours (Table) 10/14/16 10/14/16 10/15/16 Range/Units 22:35 22:35 08:33 WBC (3.8-10.6) k/uL RBC (4.30-5.90) m/uL Hgb (13.0-17.5) gm/dL Hct (39.0-53.0) % Neutrophils # (1.3-7.7) k/uL Lymphocytes # (1.0-4.8) k/uL ESR 48 H (0-15) mm/hr Glucose 133 H (74-99) mg/dL AST 16 L (17-59) U/L ALT 20 L (21-72) U/L C-Reactive Protein 273.5 H (<10.0) mg/L Total Protein 5.3 L (6.3-8.2) g/dL Albumin 2.8 L (3.5-5.0) g/dL 10/15/16 Range/Units 08:33 WBC 12.8 H (3.8-10.6) k/uL RBC 3.59 L (4.30-5.90) m/uL Hgb 10.9 L (13.0-17.5) gm/dL Hct 31.7 L (39.0-53.0) % Neutrophils # 11.0 H (1.3-7.7) k/uL Lymphocytes # 0.9 L (1.0-4.8) k/uL ESR (0-15) mm/hr Glucose (74-99) mg/dL AST (17-59) U/L ALT (21-72) U/L C-Reactive Protein (<10.0) mg/L Total Protein (6.3-8.2) g/dL Albumin (3.5-5.0) g/dL Assessment and Plan Plan: assessment Fatigue dehydration right leg pain History of COPD History of dementia History of DVT right leg History of hypertension Hyperlipidemia Sleep apnea Osteoarthritis Chronic renal failure Plan Right knee x-ray Dr. Jones for possible right foot cellulitis GI regarding weight loss and lack of appetite Of pulmonology regarding his CPAP is
--- NOTE | 2016-10-15 12:57 | XR ---
EXAMINATION TYPE: XR knee complete RT DATE OF EXAM: 10/15/2016 12:39 PM COMPARISON: NONE HISTORY: Right knee pain TECHNIQUE: 3 views are submitted FINDINGS: Postoperative changes are seen. Soft tissue ossification noted. No acute fracture. No dislo cation. Vascular calcifications are noted. IMPRESSION: 1. Postsurgical changes with no acute process.
--- NOTE | 2016-10-15 14:41 | P.CONS ---
History of Present Illness - Reason for Consult Consult date: 10/15/16 Fever - History of Present Illness This is a 70-year-old male who was recently hospitalized from September 06 through September 08 which time he was seen by ID service. He was having right lower extremity pain for which she was diagnosed with a DVT and gout. Patient was discharged home on Xarelto and colchicine. He was seen in consultation by Dr. Palmer as well. Patient states that he went to [facility] and did very well with physical therapy and he has been home for about 2 weeks now. He developed fever at home and he does not recall how long that had been going on. He also has had significant pain in the right foot that makes it difficult for him to ambulate. He states the pain comes on all of a sudden and feels like a nerve pain. He has had decreased oral intake and his related to the ER staff that he was pale, weak and sleeping more. Patient states that he has had weight loss of 95 pounds over the past year. He states this started after his pelvis fracture from a fall 1 year ago and he has had issues with pain control in the pelvis area. Patient return to [facility] emergency center. Right foot x-ray showed multiple hammertoe deformities and no fracture. Ultrasound of the right lower extremity was negative for DVT which is changed from his previous ultrasound done at the end of August. Patient was admitted to the [facility] floor and subsequently developed a fever on October 14 of 101.2. White count 10 and a GFR greater than 60. CRP 273.5 and ESR 48. Troponin was negative. Urinalysis was clear nitrate and leukoesterase negative. Stool for occult blood was positive. GI services are on consult as well. Nurse relates that patient had more redness to his right foot during the night and it was wrapped and Silvadene was placed on the foot. He was also started on Rocephin. Chest x-ray showed no acute abnormalities. Patient denies having any chest pain, shortness of breath, cough, sputum production. He denies any nausea or vomiting. He states sometimes he has a very good appetite but he is picky about what he eats. He states he has diarrhea about one time per week. He denies any recent falls or injuries to his foot. Review of Systems All systems: negative Constitutional: Reports weakness, Reports weight loss, Denies chills, Denies fever Eyes: denies blurred vision, denies pain Ears, nose, mouth and throat: Denies dental pain, Denies headache, Denies mouth pain, Denies sore throat, Denies vertigo Cardiovascular: Denies chest pain, Denies decreased exercise tolerance, Denies dyspnea on exertion, Denies edema, Denies leg edema, Denies lightheadedness, Denies shortness of breath, Denies syncope Respiratory: Denies cough, Denies cough with sputum, Denies dyspnea, Denies excessive sputum, Denies hemoptysis, Denies home oxygen, Denies wheezing Gastrointestinal: Denies abdominal pain, Denies diarrhea, Denies nausea, Denies vomiting Genitourinary: Denies dysuria Musculoskeletal: Denies myalgias Integumentary: Denies pruritus, Denies rash Neurological: Denies numbness, Denies weakness Psychiatric: Denies anxiety, Denies depression Endocrine: Reports weight change, Denies fatigue Past Medical History Past Medical History: COPD, Dementia, Diabetes Mellitus, Deep Vein Thrombosis ( DVT), Hyperlipidemia, Hypertension, Memory Impairment, Osteoarthritis (OA), Prostate Disorder, Sleep Apnea/CPAP/BIPAP Additional Past Medical History / Comment(s): DVT AFTER KNEE SX,ENLARGED PROSTATE, EARLY DEMENTIA," SHORT TERM MEMORY PROBLEMS", PAST FALL HIT HEAD", PER PAST ADMIT FOR ACUTE KIDNEY FAILURE-SEES A KIDNEY DR. SINUS/SEASONAL ALLERGY, GOUT, SLEEP APNEA BUT ABLE TO USE CPAP/MASK DOES'NT FIT. pt stated lost 80# over 7 months. History of Any Multi-Drug Resistant Organisms: None Reported Past Surgical History: Hernia Repair, Joint Replacement, Orthopedic Surgery Additional Past Surgical History / Comment(s): nasal, bilateral knee REPLACMENTS , CARIDAD HIP REPLACEMENTS, RT CARPAL TUNNEL,CARIDAD INGUINAL HERNIA REPAIRS Past Anesthesia/Blood Transfusion Reactions: No Reported Reaction Past Psychological History: Anxiety, Depression Additional Psychological History / Comment(s): AT TIME OF THIS ADMIT PT DENIES ANY DEPRESSION OR THOUGHTS OF WANTING TO HARM SELF. , his is his primary caregiver, uses a cane/wlker at home also has nebulizer and cpap machine. 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 lives in single story home that has 3 steps in which to enter. no pets. No experience. No international travel Smoking Status: Former smoker Past Alcohol Use History: None Reported Additional Past Alcohol Use History / Comment(s): STARTED SMOKING IN 1957, QUIT IN 1989 WAS SMOKING 1 PPD. Past Drug Use History: None Reported - Past Family History Father Family Medical History: Diabetes Mellitus, Myocardial Infarction ([place]) Additional Family Medical History / Comment(s): AT AGE 62 FROM [place] Mother Family Medical History: Diabetes Mellitus Additional Family Medical History / Comment(s): IN HER 40'S Medications and Allergies Home Medications Medication Instructions Recorded Confirmed Type ARIPiprazole [Abilify] 10 mg PO HS 08/15/16 10/13/16 History Divalproex ER [Depakote ER] 1,000 mg PO HS 08/15/16 10/13/16 History Mirabegron [Myrbetriq] 50 mg PO HS 08/15/16 10/13/16 History Atorvastatin [Lipitor] 20 mg PO HS 09/01/16 10/13/16 History Acetaminophen Tab [Tylenol] 1,000 mg PO Q6HR PRN 09/05/16 10/13/16 History Fish Oil/Dha/Epa [Fish Oil 1,200 1 cap PO BID 09/05/16 10/13/16 History mg Fish Oil] Aspirin 81 mg PO DAILY 10/13/16 10/13/16 History Febuxostat [Uloric] 40 mg PO DAILY 10/13/16 10/13/16 History Ferrous Sulfate [Feosol] 325 mg PO DAILY 10/13/16 10/13/16 History Rivaroxaban [Xarelto] 20 mg PO DAILY 10/13/16 10/13/16 History Allergies Allergy/AdvReac Type Severity Reaction Status Date / Time Iodinated Contrast Media - Allergy Unknown Verified 10/13/16 13:51 Oral and donepezil [From Aricept] AdvReac psychiatric Verified 10/13/16 13:51 Physical Exam Vitals: Vital Signs Temp Pulse Pulse Resp BP Pulse Ox 10/15/16 07:00 98.8 F 59 L 16 152/67 98 10/15/16 00:30 99.3 F 96 10/14/16 20:45 101.2 F H 67 16 138/64 91 L 10/14/16 15:00 100.3 F H 67 16 148/67 93 L 10/14/16 12:00 97.9 F 68 16 130/68 94 L Intake and Output 10/14/16 10/15/16 10/15/16 22:59 06:59 14:59 Intake Total 240 1150 Balance 240 1150 Intake: IV 950 Magnesium Sulfate-D5w Pmx 200 1 gm In Dextrose/Water 1 100ml.bag @ 100 mls/hr IVPB Q1H BALAJI Rx#: [id number] Sodium Chloride 0.9% 1, 700 000 ml @ 100 mls/hr IV . Q10H BALAJI Rx#:[id number] cefTRIAXone 1,000 mg In 50 Sodium Chloride 0.9% 50 ml @ 100 mls/hr IVPB Q24HR BALAJI Rx#:[id number] Oral 240 200 Other: Voiding Method Diaper # Voids 1 4 Gen: This is an obese 70-year-old male. He appears to be in no acute distress. HEENT: Head is atraumatic, normocephalic. Pupils equal, round. Sclerae is anicteric. Conjunctiva pink. Mucous membranes of the mouth are moist. Patient is edentulous with dentures in place. No thrush noted. NECK: Short and thick. Supple. No JVD. No lymphadenopathy. No thyromegaly. LUNGS: Clear to auscultation. No wheezes or rhonchi. No intercostal retractions. HEART: Regular rate and rhythm. No murmur. ABDOMEN: Obese Soft. Bowel sounds are present. No masses. No tenderness. EXTREMITIES: 1+ pedal edema to the right foot, none on the left. Tenderness over the dorsal surface of the foot. Warmth is noted mostly distally. Onychomycosis bilaterally. Multiple hammertoes.. No calf tenderness. NEUROLOGICAL: Patient is awake, alert and oriented x2. Generalized weakness. Results Results: Laboratory Results WBC 12.8 k/uL (3.8-10.6) H 10/15/16 08:33 RBC 3.59 m/uL (4.30-5.90) L 10/15/16 08:33 Hgb 10.9 gm/dL (13.0-17.5) L 10/15/16 08:33 Hct 31.7 % (39.0-53.0) L 10/15/16 08:33 MCV 88.4 fL (80.0-100.0) 10/15/16 08:33 MCH 30.2 pg (25.0-35.0) 10/15/16 08:33 MCHC 34.2 g/dL (31.0-37.0) 10/15/16 08:33 RDW 13.9 % (11.5-15.5) 10/15/16 08:33 Plt Count 192 k/uL (150-450) 10/15/16 08:33 Neutrophils % 86 % 10/15/16 08:33 Lymphocytes % 7 % 10/15/16 08:33 Monocytes % 6 % 10/15/16 08:33 Eosinophils % 1 % 10/15/16 08:33 Basophils % 0 % 10/15/16 08:33 Neutrophils # 11.0 k/uL (1.3-7.7) H 10/15/16 08:33 Lymphocytes # 0.9 k/uL (1.0-4.8) L 10/15/16 08:33 Monocytes # 0.8 k/uL (0-1.0) 10/15/16 08:33 Eosinophils # 0.1 k/uL (0-0.7) 10/15/16 08:33 Basophils # 0.0 k/uL (0-0.2) 10/15/16 08:33 ESR 48 mm/hr (0-15) H 10/14/16 22:35 Sodium 141 mmol/L (137-145) 10/13/16 14:11 Potassium 4.5 mmol/L (3.5-5.1) 10/13/16 14:11 Chloride 103 mmol/L (98-107) 10/13/16 14:11 Carbon Dioxide 26 mmol/L (22-30) 10/13/16 14:11 Anion Gap 12 mmol/L 10/13/16 14:11 BUN 22 mg/dL (9-20) H 10/13/16 14:11 Creatinine 1.07 mg/dL (0.66-1.25) 10/13/16 14:11 Est GFR (MDRD) Af Amer >60 (>60 ml/min/1.73 sqM) 10/13/16 14:11 Est GFR (MDRD) Non-Af >60 (>60 ml/min/1.73 sqM) 10/13/16 14:11 Glucose 113 mg/dL (74-99) H 10/13/16 14:11 POC Glucose (mg/dL) 163 mg/dL (75-99) H 10/13/16 20:48 POC Glu Oil Painter ID Deo Dial 10/13/16 20:48 Uric Acid 4.5 mg/dL (3.5-8.5) 10/13/16 14:11 Calcium 9.2 mg/dL (8.4-10.2) 10/13/16 14:11 Magnesium 1.7 mg/dL (1.6-2.3) 10/14/16 22:35 Total Bilirubin 1.5 mg/dL (0.2-1.3) H 10/13/16 14:11 AST 13 U/L (17-59) L 10/13/16 14:11 ALT 23 U/L (21-72) 10/13/16 14:11 Alkaline Phosphatase 60 U/L (38-126) 10/13/16 14:11 Troponin I <0.012 ng/mL (0.000-0.034) 10/13/16 14:11 C-Reactive Protein 273.5 mg/L (<10.0) H 10/14/16 22:35 Total Protein 6.3 g/dL (6.3-8.2) 10/13/16 14:11 Albumin 3.6 g/dL (3.5-5.0) 10/13/16 14:11 Urine Color Yellow 10/13/16 19:45 Urine Appearance Clear (Clear) 10/13/16 19:45 Urine pH 6.0 (5.0-8.0) 10/13/16 19:45 Ur Specific [place] 1.019 (1.001-1.035) 10/13/16 19:45 Urine Protein Negative (Negative) 10/13/16 19:45 Urine Glucose (UA) Negative (Negative) 10/13/16 19:45 Urine Ketones 1+ (Negative) H 10/13/16 19:45 Urine Blood Negative (Negative) 10/13/16 19:45 Urine Nitrite Negative (Negative) 10/13/16 19:45 Urine Bilirubin Negative (Negative) 10/13/16 19:45 Urine Urobilinogen <2.0 mg/dL (<2.0) 10/13/16 19:45 Ur Leukocyte Esterase Negative (Negative) 10/13/16 19:45 Stool Occult Blood Positive (Negative) 10/13/16 13:35 CBC & Chem 7: 10/15/16 08:33 10/15/16 08:33 Labs: Abnormal Lab Results - Last 24 Hours (Table) 10/14/16 10/14/16 Range/Units 22:35 22:35 ESR 48 H (0-15) mm/hr C-Reactive Protein 273.5 H (<10.0) mg/L Assessment and Plan Plan: This is a 70-year-old male who presented to the hospital with complaints of right foot pain and was recently diagnosed with gout and DVT on the right lower extremity. CRP and ESR are elevated and patient did develop fever on October 14 although patient does state he has a fever at home but may not be reliable. Patient was started on Rocephin. Further recommendations as patient progresses. The above dictated assessment and findings were discussed with Dr. Jones. The impression and plan of care have been directed as dictated. Hillary Kirkland nurse practitioner acting as scribe for Dr. Jones. Time with Patient: Greater than 30
--- NOTE | 2016-10-15 20:03 | P.CNPUL ---
History of Present Illness Consult date: 10/15/16 Reason for consult: obstructive sleep apnea History of present illness: I was asked to evaluate this patient and make recommendations on his obstructive sleep apnea treatment. This is a 70-year-old male who was recently hospitalized from September 06 through September 08. He was having right lower extremity pain for which she was diagnosed with a DVT and gout. Patient was discharged home on Xarelto and colchicine. He was seen in consultation by Dr. Palmer as well. Patient states that he went to [facility] and did very well with physical therapy and he has been home for about 2 weeks now. He developed fever at home and he does not recall how long that had been going on. He also has had significant pain in the right foot that makes it difficult for him to ambulate. He states the pain comes on all of a sudden and feels like a nerve pain. He has had decreased oral intake and his related to the ER staff that he was pale, weak and sleeping more. Patient states that he has had weight loss of 95 pounds over the past year. He states this started after his pelvis fracture from a fall 1 year ago and he has had issues with pain control in the pelvis area. Patient return to [facility] emergency center. Right foot x-ray showed multiple hammertoe deformities and no fracture. Ultrasound of the right lower extremity was negative for DVT which is changed from his previous ultrasound done at the end of August. [facility] and subsequently developed a fever on October 14 of 101.2. White count 10 and a GFR greater than 60. CRP 273.5 and ESR 48. Troponin was negative. Urinalysis was clear nitrate and leukoesterase negative. Stool for occult blood was positive. GI services are on consult as well. In terms of obstructive sleep apnea, the patient was diagnosed having severe DAVID with an apnea popping index of 122. The patient was given CPAP therapy at a pressure of 16 cm of water. His treatment was not absolutely successful and the patient was having difficulty in tolerating higher pressure and how is having difficulty in getting the right mask interface. Based on this, I lowered the CPAP pressure down to 14 cm of water and I try different masks, and ultimately the patient came in for a Pap nap study during which the pressure was At 14 cm of water and the patient was given a airfit F10 fullface mask. The family has brought all this equipment and they're currently at the bedside. The patient will try to use it during this current hospital stay and hopefully this will go towards his compliance data as this will be needed to continue improving and sustaining his CPAP machine. Review of Systems Full review of system was done and the positive findings are almost above the history of present illness Past Medical History Past Medical History: COPD, Dementia, Diabetes Mellitus, Deep Vein Thrombosis ( DVT), Hyperlipidemia, Hypertension, Memory Impairment, Osteoarthritis (OA), Prostate Disorder, Sleep Apnea/CPAP/BIPAP Additional Past Medical History / Comment(s): Severe obstructive sleep apnea details as mentioned above, DVT of the right lower extremity popliteal, right foot/ankle pain, impairment in memory, gout, previous history of fall, periodic limb movements moderate to severe based on the previous sleep study, obesity with a BMI of 30, diabetes mellitus, hyperlipidemia, hypertension, depression. History of Any Multi-Drug Resistant Organisms: None Reported Past Surgical History: Hernia Repair, Joint Replacement, Orthopedic Surgery Additional Past Surgical History / Comment(s): nasal, bilateral knee REPLACMENTS , CARIDAD HIP REPLACEMENTS, RT CARPAL TUNNEL,CARIDAD INGUINAL HERNIA REPAIRS Past Anesthesia/Blood Transfusion Reactions: No Reported Reaction Past Psychological History: Anxiety, Depression Additional Psychological History / Comment(s): AT TIME OF THIS ADMIT PT DENIES ANY DEPRESSION OR THOUGHTS OF WANTING TO HARM SELF. , his is his primary caregiver, uses a cane/wlker at home also has nebulizer and cpap machine. 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 lives in single story home that has 3 steps in which to enter. no pets. No experience. No international travel Smoking Status: Former smoker Past Alcohol Use History: None Reported Additional Past Alcohol Use History / Comment(s): STARTED SMOKING IN 1956, QUIT IN 1989 WAS SMOKING 1 PPD. Past Drug Use History: None Reported - Past Family History Father Family Medical History: Diabetes Mellitus, Myocardial Infarction ([place]) Additional Family Medical History / Comment(s): AT AGE 62 FROM [place] Mother Family Medical History: Diabetes Mellitus Additional Family Medical History / Comment(s): IN HER 40'S Medications and Allergies Home Medications Medication Instructions Recorded Confirmed Type ARIPiprazole [Abilify] 10 mg PO HS 08/15/16 10/13/16 History Divalproex ER [Depakote ER] 1,000 mg PO HS 08/15/16 10/13/16 History Mirabegron [Myrbetriq] 50 mg PO HS 08/15/16 10/13/16 History Atorvastatin [Lipitor] 20 mg PO HS 09/01/16 10/13/16 History Acetaminophen Tab [Tylenol] 1,000 mg PO Q6HR PRN 09/05/16 10/13/16 History Fish Oil/Dha/Epa [Fish Oil 1,200 1 cap PO BID 09/05/16 10/13/16 History mg Fish Oil] Aspirin 81 mg PO DAILY 10/13/16 10/13/16 History Febuxostat [Uloric] 40 mg PO DAILY 10/13/16 10/13/16 History Ferrous Sulfate [Feosol] 325 mg PO DAILY 10/13/16 10/13/16 History Rivaroxaban [Xarelto] 20 mg PO DAILY 10/13/16 10/13/16 History Allergies Allergy/AdvReac Type Severity Reaction Status Date / Time Iodinated Contrast Media - Allergy Unknown Verified 10/13/16 13:51 Oral and donepezil [From Aricept] AdvReac psychiatric Verified 10/13/16 13:51 Physical Exam Vitals: Vital Signs Temp Pulse Pulse Resp BP Pulse Ox 10/15/16 15:00 98.2 F 60 16 139/91 96 10/15/16 07:00 98.8 F 59 L 16 152/67 98 10/15/16 00:30 99.3 F 96 10/14/16 20:45 101.2 F H 67 16 138/64 91 L Intake and Output 10/15/16 10/15/16 10/15/16 06:59 14:59 22:59 Intake Total 1150 750 Balance 1150 750 Intake: IV 950 750 Magnesium Sulfate-D5w Pmx 200 1 gm In Dextrose/Water 1 100ml.bag @ 100 mls/hr IVPB Q1H BALAJI Rx#: [id number] Sodium Chloride 0.9% 1, 700 700 000 ml @ 100 mls/hr IV . Q10H BALAJI Rx#:[id number] cefTRIAXone 1,000 mg In 50 50 Sodium Chloride 0.9% 50 ml @ 100 mls/hr IVPB Q24HR BALAJI Rx#:[id number] Oral 200 Other: Voiding Method Diaper Diaper # Voids 4 600 Head exam was generally normal. There was no scleral icterus or corneal arcus. Mucous membranes were moist.Neck was supple and without jugular venous distension, thyromegaly, or carotid bruits. Carotids were easily palpable bilaterally. There was no adenopathy. The patient has significant crowding of the posterior oropharynx. There is no goiter or neck masses.Lungs were clear to auscultation and percussion, and with normal diaphragmatic excursion. No wheezes or rales were noted. Cardiac exam revealed the PMI to be normally situated and sized. The rhythm was regular and no extrasystoles were noted during several minutes of auscultation. The first and second heart sounds were normal and physiologic splitting of the second heart sound was noted. There were no murmurs, rubs, clicks, or gallops. Abdominal exam revealed normal bowel sounds. The abdomen was soft, non-tender, and without masses, organomegaly, or appreciable enlargement of the abdominal aorta. Right lower extremity shows some diminished range of motion in the right ankle and foot with some swelling. There is no erythema. No joint deformity. No open wounds or ulcers. Results - Laboratory Findings CBC and BMP: 10/15/16 08:33 10/15/16 08:33 Abnormal lab findings: Abnormal Labs 10/14/16 10/14/16 10/15/16 22:35 22:35 08:33 WBC RBC Hgb Hct Neutrophils # Lymphocytes # ESR 48 H Glucose 133 H AST 16 L ALT 20 L C-Reactive Protein 273.5 H Total Protein 5.3 L Albumin 2.8 L Prealbumin 10/15/16 10/15/16 08:33 11:39 WBC 12.8 H RBC 3.59 L Hgb 10.9 L Hct 31.7 L Neutrophils # 11.0 H Lymphocytes # 0.9 L ESR Glucose AST ALT C-Reactive Protein Total Protein Albumin Prealbumin 12 L Assessment and Plan Plan: Assessment 1 severe obstructive sleep apnea with an AHI of 122. The patient has lost considerable amount of weight. Initial saturation was done with a CPAP pressure of 16 cm water and following that the pressure was lowered down to 14. The appropriate Pap nap study was also done and the patient is utilizing airfit F10 fullface mask. We'll restart the treatment. We will monitor his compliancy. Plan Restart the treatment at a pressure of 14 cm of water with the appropriate fullface mask. We'll monitor his compliancy. We'll check him on a daily basis. We'll may need to lower the pressures if compliancy becomes an issue as long as the patient has lost considerable amount of weight his current BMI is down to 30. We'll continue to follow. Medicine to treat his other comorbidities.
[2016-10-15] MEDS: OXYBUTYNIN 10 MG TAB.ER.24 PO SCH (21:26)
[2016-10-15] MEDS: ATORVASTATIN 20 MG TAB PO SCH (21:26)
[2016-10-15] MEDS: DIVALPROEX ER 500 MG TAB.ER.24H PO SCH (21:26)
[2016-10-15] MEDS: ARIPiprazole 10 MG TAB PO SCH (21:26)
--- NOTE | 2016-10-15 22:10 | P.CON ---
Consult Note - . Consult date: 10/15/16 Assessment/Plan:: This is a 70-year-old male who was recently hospitalized from September 06 through September 08 which time he was seen by ID service. He was having right lower extremity pain for which she was diagnosed with a DVT and gout. Patient was discharged home on Xarelto and colchicine. He was seen in consultation by Dr. Palmer as well. Patient states that he went to [facility] and did very well with physical therapy and he has been home for about 2 weeks now. He developed fever at home and he does not recall how long that had been going on. He also has had significant pain in the right foot that makes it difficult for him to ambulate. He states the pain comes on all of a sudden and feels like a nerve pain. He has had decreased oral intake and his related to the ER staff that he was pale, weak and sleeping more. Patient states that he has had weight loss of 95 pounds over the past year. He states this started after his pelvis fracture from a fall 1 year ago and he has had issues with pain control in the pelvis area. Patient return to [facility] emergency center. Right foot x-ray showed multiple hammertoe deformities and no fracture. Ultrasound of the right lower extremity was negative for DVT which is changed from his previous ultrasound done at the end of August. Patient was admitted to the [facility] floor and subsequently developed a fever on October 14 of 101.2. White count 10 and a GFR greater than 60. CRP 273.5 and ESR 48. Troponin was negative. Urinalysis was clear nitrate and leukoesterase negative. Stool for occult blood was positive. GI services are on consult as well. Nurse relates that patient had more redness to his right foot during the night and it was wrapped and Silvadene was placed on the foot. He was also started on Rocephin. Chest x-ray showed no acute abnormalities. Patient denies having any chest pain, shortness of breath, cough, sputum production. He denies any nausea or vomiting. He states sometimes he has a very good appetite but he is picky about what he eats. He states he has diarrhea about one time per week. He denies any recent falls or injuries to his foot. Please see consult note is dictated by nurse practitioner Mrs. Hillary Kirkland. Patient does have a history of gout. He is treated with Uloric because of his chronic renal failure. As noted his CRP is markedly elevated. Will ask for an MRI of his foot to evaluate for underlying fracture, gouty arthritis or other pathology of the foot. It is noted the patient has been having some weight loss. This is appear to be somewhat complicated because of his progressive dementia. He does have significant pain to the foot on exam at this time. It is swollen but less erythematous than noted prior. Continue treatment of gout as before. An MRI will further help direct therapy. Currently receiving ceftriaxone for what appeared to be cellulitis of the right foot with improvement this will continue for now. I agree with evaluation, assessment and plan as dictated by nurse practitioner Mrs. Hillary Kirkland.
[2016-10-16] MEDS: SODIUM CHLORIDE 0.9% 1,000 ML IV SCH ×4 (00:29→23:40)
[2016-10-16] MEDS: RIVAROXABAN 10 MG TAB PO SCH (08:17)
[2016-10-16] MEDS: ASPIRIN 81 MG CHEW PO SCH (08:20)
[2016-10-16] MEDS: ALLOPURINOL 100 MG TAB PO SCH (08:20)
[2016-10-16] MEDS: amLODIPine 10 MG TAB PO SCH (08:20)
[2016-10-16] MEDS: FERROUS SULFATE 325 MG TAB PO SCH (08:20)
[2016-10-16] MEDS: SILVER sulfADIAZINE Cream 400 GM 1 APPLIC APPLIC TOPICAL SCH ×2 (08:21→20:13)
--- NOTE | 2016-10-16 09:40 | P.PN ---
Subjective Principal diagnosis: Poor oral intake 70-year-old male admitted with right foot pain recent diagnosis of nonocclusive DVT and gouty arthritis. Reevaluated today in regards to poor oral intake for the last few months. Patient is tolerating a regular diet consuming more than 50% and drinking protein shakes. Calorie count in progress. Denies abdominal pain. No emesis. Prealbumin 12. Objective - Vital Signs Vital signs: Vital Signs Temp 99.8 F H 10/16/16 07:00 Pulse 64 10/16/16 07:00 Resp 16 10/16/16 07:00 BP 145/74 10/16/16 07:00 Pulse Ox 94 L 10/16/16 08:37 Intake & Output 10/15/16 10/16/16 10/16/16 18:59 06:59 18:59 Intake Total 750 900 Balance 750 900 Intake: IV 750 900 Sodium Chloride 0.9% 1, 700 900 000 ml @ 100 mls/hr IV . Q10H BALAJI Rx#:[id number] cefTRIAXone 1,000 mg In 50 Sodium Chloride 0.9% 50 ml @ 100 mls/hr IVPB Q24HR BALAJI Rx#:[id number] Other: Voiding Method Diaper Diaper Diaper # Voids 600 2 - Exam General appearance: The patient is alert, oriented, in no acute distress. HET: Head is normocephalic and atraumatic. Pupils are equal and reactive. Oropharynx is clear without lesions. Neck: Supple without lymphadenopathy. Trachea midline. Heart: S1 S2. Regular rate and rhythm. Lungs: No crackles or wheezes are heard. Abdomen: Soft, nontender, nondistended with bowel sounds. No peritoneal signs. No palpable organomegaly or masses. Extremities: Right foot edematous warm to touch mild erythema with tenderness. Bilateral DP/PT pulses palpable. Neurological: No focal deficits. Strength and sensation are grossly intact. - Labs CBC & Chem 7: 10/15/16 08:33 10/15/16 08:33 Labs: Abnormal Lab Results - Last 24 Hours (Table) 10/15/16 10/15/16 Range/Units 08:33 11:39 Glucose 133 H (74-99) mg/dL AST 16 L (17-59) U/L ALT 20 L (21-72) U/L Total Protein 5.3 L (6.3-8.2) g/dL Albumin 2.8 L (3.5-5.0) g/dL Prealbumin 12 L (18-36) mg/dL Microbiology - Last 24 Hours (Table) 10/14/16 22:52 Blood Culture - Preliminary Blood No Growth after 24 hours 10/14/16 22:35 Blood Culture - Preliminary Blood No Growth after 24 hours Assessment and Plan (1) Poor appetite Narrative/Plan: Suspect related to recent hospitalization illness and inflammatory process to the right foot. Status: Acute (2) Right foot pain Status: Acute Plan: 1. Continue diet with small frequent meals 4-6 times daily as tolerated with protein shakes 3 times daily. 2. Pre-albumin reviewed. 3. Upper endoscopy not planned at this time. We'll follow as needed. Assessment and plan a care discussed with Dr. Bridges.
[2016-10-16] MEDS: HYDROcodone/APAP 5-325MG 1 EACH TAB PO PRN (12:31)
--- NOTE | 2016-10-16 12:50 | P.PN ---
Subjective Principal diagnosis: Patient continues to complain of severe right leg pain medial right knee and of foot ankle. Patient had consultation with pulmonology regarding CPAP. Patient had of consultation with Dr. Jones MRI of the foot has been ordered. Orthopedic consultation Objective - Vital Signs Vital signs: Vital Signs Temp 99.8 F H 10/16/16 07:00 Pulse 64 10/16/16 07:00 Resp 16 10/16/16 07:00 BP 145/74 10/16/16 07:00 Pulse Ox 94 L 10/16/16 08:37 Intake & Output 10/15/16 10/16/16 10/16/16 18:59 06:59 18:59 Intake Total 750 900 Balance 750 900 Intake: IV 750 900 Sodium Chloride 0.9% 1, 700 900 000 ml @ 100 mls/hr IV . Q10H BALAJI Rx#:[id number] cefTRIAXone 1,000 mg In 50 Sodium Chloride 0.9% 50 ml @ 100 mls/hr IVPB Q24HR BALAJI Rx#:[id number] Other: Voiding Method Diaper Diaper Diaper # Voids 600 2 - Constitutional General appearance: Present: mild distress - EENT Eyes: Present: PERRLA Ears: bilateral: normal - Neck Neck: Present: normal ROM - Respiratory Respiratory: bilateral: CTA - Cardiovascular Rhythm: regular - Gastrointestinal General gastrointestinal: Present: soft - Integumentary Integumentary: Present: normal - Neurologic Neurologic: Present: CNII-XII intact - Musculoskeletal Musculoskeletal: Present: right sided weakness - Psychiatric Psychiatric: Present: A&O x's 3 - Labs CBC & Chem 7: 10/15/16 08:33 10/15/16 08:33 Labs: Abnormal Lab Results - Last 24 Hours (Table) 10/15/16 Range/Units 11:39 Prealbumin 12 L (18-36) mg/dL Microbiology - Last 24 Hours (Table) 10/14/16 22:52 Blood Culture - Preliminary Blood No Growth after 24 hours 10/14/16 22:35 Blood Culture - Preliminary Blood No Growth after 24 hours Assessment and Plan Plan: Assessment Fatigue Dehydration Right leg pain with right foot cellulitis Right knee pain Sleep apnea weight loss anorexia History of COPD Dementia History of DVT right leg Hypertension Hyperlipidemia Chronic renal failure Plan Continue consultation with Dr. Jones orthopedics pulmonology and GI MRI of foot ordered
--- NOTE | 2016-10-16 17:08 | P.CNOR ---
History of Present Illness - HPI Consult date: 10/16/16 Requesting physician: Alessandro Lyon Consult reason: other (Right foot pain) History of present illness: The patient is a 70-year-old male who presented to the emergency department on 10/13/2016 with right foot pain and inability to ambulate. The patient's was concerned about his poor oral intake and sleepiness. The patient was admitted to the hospital for further evaluation. The patient was hospitalized at the end of August for a DVT and was started on Xarelto. He was discharged to skilled rehab and then subsequently discharged home. The patient states that his right foot pain started approximately 3 weeks ago. History is limited due to patient's underlying dementia. The patient states that he does not recall a specific injury to his right foot. The patient has been seen and evaluated by medical management and infectious disease. The patient's C- reactive protein and sed rate were elevated and the patient was started on Rocephin due to right foot redness and swelling. The patient did have a fever 2 days ago. The patient's redness has improved and he has mild edema to the foot at this time. The patient states that he was up out of bed today and still has pain on any movement or with weightbearing. The patient does have a history of gout and is currently receiving oral anti-gout medications. He states he has numbness in his bilateral feet. The patient does have a history of bilateral hip and knee replacements but is unable to tell me what orthopedic surgeon he is seen in the past. He denies fever, chills, rigors, abdominal pain, shortness breath, and chest pain. He states his pain is controlled at this time with no movement of the right foot. Review of Systems Constitutional: Reports as per HPI, Denies chills, Denies fever Cardiovascular: Denies chest pain, Denies shortness of breath Gastrointestinal: Denies nausea, Denies vomiting Musculoskeletal: right: foot pain, foot swelling Past Medical History Past Medical History: COPD, Dementia, Diabetes Mellitus, Deep Vein Thrombosis ( DVT), Hyperlipidemia, Hypertension, Memory Impairment, Osteoarthritis (OA), Prostate Disorder, Sleep Apnea/CPAP/BIPAP Additional Past Medical History / Comment(s): Severe obstructive sleep apnea details as mentioned above, DVT of the right lower extremity popliteal, right foot/ankle pain, impairment in memory, gout, previous history of fall, periodic limb movements moderate to severe based on the previous sleep study, obesity with a BMI of 30, diabetes mellitus, hyperlipidemia, hypertension, depression. History of Any Multi-Drug Resistant Organisms: None Reported Past Surgical History: Hernia Repair, Joint Replacement, Orthopedic Surgery Additional Past Surgical History / Comment(s): nasal, bilateral knee REPLACMENTS , CARIDAD HIP REPLACEMENTS, RT CARPAL TUNNEL,CARIDAD INGUINAL HERNIA REPAIRS Past Anesthesia/Blood Transfusion Reactions: No Reported Reaction Past Psychological History: Anxiety, Depression Additional Psychological History / Comment(s): AT TIME OF THIS ADMIT PT DENIES ANY DEPRESSION OR THOUGHTS OF WANTING TO HARM SELF. , his is his primary caregiver, uses a cane/wlker at home also has nebulizer and cpap machine. 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 lives in single story home that has 3 steps in which to enter. no pets. No experience. No international travel Smoking Status: Former smoker Past Alcohol Use History: None Reported Additional Past Alcohol Use History / Comment(s): STARTED SMOKING IN 1956, QUIT IN 1989 WAS SMOKING 1 PPD. Past Drug Use History: None Reported - Past Family History Father Family Medical History: Diabetes Mellitus, Myocardial Infarction ([place]) Additional Family Medical History / Comment(s): AT AGE 62 FROM [place] Mother Family Medical History: Diabetes Mellitus Additional Family Medical History / Comment(s): IN HER 40'S Medications and Allergies Home Medications Medication Instructions Recorded Confirmed Type ARIPiprazole [Abilify] 10 mg PO HS 08/15/16 10/13/16 History Divalproex ER [Depakote ER] 1,000 mg PO HS 08/15/16 10/13/16 History Mirabegron [Myrbetriq] 50 mg PO HS 08/15/16 10/13/16 History Atorvastatin [Lipitor] 20 mg PO HS 09/01/16 10/13/16 History Acetaminophen Tab [Tylenol] 1,000 mg PO Q6HR PRN 09/05/16 10/13/16 History Fish Oil/Dha/Epa [Fish Oil 1,200 1 cap PO BID 09/05/16 10/13/16 History mg Fish Oil] Aspirin 81 mg PO DAILY 10/13/16 10/13/16 History Febuxostat [Uloric] 40 mg PO DAILY 10/13/16 10/13/16 History Ferrous Sulfate [Feosol] 325 mg PO DAILY 10/13/16 10/13/16 History Rivaroxaban [Xarelto] 20 mg PO DAILY 10/13/16 10/13/16 History Allergies Allergy/AdvReac Type Severity Reaction Status Date / Time Iodinated Contrast Media - Allergy Unknown Verified 10/13/16 13:51 Oral and donepezil [From Aricept] AdvReac psychiatric Verified 10/13/16 13:51 Physical Examination The patient is in no acute distress. He is alert and oriented and answers questions appropriately. The patient's head is normocephalic atraumatic. Exam of the bilateral upper extremities reveal no obvious deformities or pain upon range of motion. Exam of the bilateral lower extremities reveal pain upon palpation to the bilateral knees. Calves are soft and nontender. Limited range of motion of the bilateral ankles due to pain and guarding. The patient is able to wiggle his toes slightly on command. The patient does not have pain to the medial or lateral malleolus of the right ankle. There is pain upon palpation to the entire right midfoot and toes. There is no erythema to the right foot. No open wounds are present. No fluid collections or abscesses seen. Mild edema to the bilateral feet is present. Neurological and circulatory status is intact to the bilateral lower extremities. Results - Labs Labs: Microbiology - Last 24 Hours (Table) 10/14/16 22:52 Blood Culture - Preliminary Blood No Growth after 24 hours 10/14/16 22:35 Blood Culture - Preliminary Blood No Growth after 24 hours H & H 10/15/16 Range/Units 08:33 Hgb 10.9 L (13.0-17.5) gm/dL Hct 31.7 L (39.0-53.0) % Result Diagrams: 10/15/16 08:33 10/15/16 08:33 - Diagnostic results Knee x-ray: image reviewed (Right knee prosthesis in place. Components appear to be well seated without evidence of migration or loosening.) Ankle/Foot x-ray: image reviewed (No acute fracture seen.) Assessment and Plan (1) Right foot pain Status: Acute (2) Unable to ambulate Status: Acute (3) Gout Status: Acute Plan: The clinical and x-ray findings were discussed with the patient. The case was also discussed at length with Dr. Babin. No surgical intervention is planned at this time. We will await right foot MRI results for more information. The patient's pain is most likely related to his history of gout. The patient is currently on oral medications for the treatment of gout. The patient's foot appears to be improving. Continue antibiotic therapy per infectious disease. We will continue to follow the patient along with medical management and infectious disease.
--- NOTE | 2016-10-16 17:25 | P.PN ---
Subjective We were asked to evaluate this patient and make recommendations on his obstructive sleep apnea treatment. This is a 70-year-old male who was recently hospitalized from September 06 through September 08. He was having right lower extremity pain for which she was diagnosed with a DVT and gout. Patient was discharged home on Xarelto and colchicine. He was seen in consultation by Dr. Palmer as well. Patient states that he went to [facility] and did very well with physical therapy and he has been home for about 2 weeks now. He developed fever at home and he does not recall how long that had been going on. He also has had significant pain in the right foot that makes it difficult for him to ambulate. He states the pain comes on all of a sudden and feels like a nerve pain. He has had decreased oral intake and his related to the ER staff that he was pale, weak and sleeping more. Patient states that he has had weight loss of 95 pounds over the past year. He states this started after his pelvis fracture from a fall 1 year ago and he has had issues with pain control in the pelvis area. Patient return to [facility] emergency center. Right foot x-ray showed multiple hammertoe deformities and no fracture. Ultrasound of the right lower extremity was negative for DVT which is changed from his previous ultrasound done at the end of August. Patient was admitted to the [facility] floor and subsequently developed a fever on October 14 of 101.2. White count 10 and a GFR greater than 60. CRP 273.5 and ESR 48. Troponin was negative. Urinalysis was clear nitrate and leukoesterase negative. Stool for occult blood was positive. GI services are on consult as well. In terms of obstructive sleep apnea, the patient was diagnosed having severe DAVID with an apnea popping index of 122. The patient was given CPAP therapy at a pressure of 16 cm of water. His treatment was not absolutely successful and the patient was having difficulty in tolerating higher pressure and how is having difficulty in getting the right mask interface. Based on this, I lowered the CPAP pressure down to 14 cm of water and I try different masks, and ultimately the patient came in for a Pap nap study during which the pressure was At 14 cm of water and the patient was given a airfit F10 fullface mask. The family has brought all this equipment and they're currently at the bedside. The patient will try to use it during this current hospital stay and hopefully this will go towards his compliance data as this will be needed to continue improving and sustaining his CPAP machine. The patient is seen again today 10/16/2016 in follow-up on the regular medical floor. He is awake and alert in no acute distress. He did utilize his CPAP machine last night per 5-1/2 hours which is an improvement compared to previous. He has had no further acute respiratory distress. He is maintaining good O2 saturations in the upper 90s on 2 L/m per nasal cannula. He's been afebrile. Blood cultures reveal no growth to date. He has been seen by Dr. Jones from infectious disease who feels the significant right foot pain is most likely gout but an MRI has been ordered, the results of which are pending. Objective - Vital Signs Vital signs: Vital Signs Temp 98.2 F 10/16/16 15:00 Pulse 59 L 10/16/16 15:00 Resp 16 10/16/16 15:00 BP 159/70 10/16/16 15:00 Pulse Ox 97 10/16/16 15:00 Intake & Output 10/15/16 10/16/16 10/16/16 18:59 06:59 18:59 Intake Total 750 900 800 Output Total 600 Balance 750 900 200 Intake: IV 750 900 800 Sodium Chloride 0.9% 1, 700 900 700 000 ml @ 100 mls/hr IV . Q10H [facility] Rx#:[id number] cefTRIAXone 1,000 mg In 50 100 Sodium Chloride 0.9% 50 ml @ 100 mls/hr IVPB Q24HR [facility] Rx#:[id number] Output: Urine 600 Other: Voiding Method Diaper Diaper Diaper # Voids 600 2 - Exam Head exam was generally normal. There was no scleral icterus or corneal arcus. Mucous membranes were moist.Neck was supple and without jugular venous distension, thyromegaly, or carotid bruits. Carotids were easily palpable bilaterally. There was no adenopathy. The patient has significant crowding of the posterior oropharynx. There is no goiter or neck masses.Lungs were clear to auscultation and percussion, and with normal diaphragmatic excursion. No wheezes or rales were noted. Cardiac exam revealed the PMI to be normally situated and sized. The rhythm was regular and no extrasystoles were noted during several minutes of auscultation. The first and second heart sounds were normal and physiologic splitting of the second heart sound was noted. There were no murmurs, rubs, clicks, or gallops. Abdominal exam revealed normal bowel sounds. The abdomen was soft, non-tender, and without masses, organomegaly, or appreciable enlargement of the abdominal aorta. Right lower extremity shows some diminished range of motion in the right ankle and foot with some swelling. There is no erythema. No joint deformity. No open wounds or ulcers. - Labs CBC & Chem 7: 10/15/16 08:33 10/15/16 08:33 Labs: Microbiology - Last 24 Hours (Table) 10/14/16 22:52 Blood Culture - Preliminary Blood No Growth after 24 hours 10/14/16 22:35 Blood Culture - Preliminary Blood No Growth after 24 hours Assessment and Plan Plan: Assessment 1 severe obstructive sleep apnea with an AHI of 122. The patient has lost considerable amount of weight. Initial saturation was done with a CPAP pressure of 16 cm water and following that the pressure was lowered down to 14. The appropriate Pap nap study was also done and the patient is utilizing airfit F10 fullface mask. We'll restart the treatment. We will monitor his compliancy. #2 Dementia. #3 Diabetes mellitus. #4 Hyperlipidemia. #5 Hypertension. #6 Osteoarthritis. #7 Gout. #8 DVT of the right lower extremity, anticoagulated with Xarelto. Plan: The patient was seen and evaluated by Dr. Muse. His CPAP machine was evaluated today. The patient did utilize it for 5 hours and 37 minutes last night. This is an improvement in his compliance. We spoke to the as well and mentioned he could wear it throughout the day while napping to improve his overall alertness. We'll continue to follow.
[2016-10-16] MEDS: OXYBUTYNIN 10 MG TAB.ER.24 PO SCH (20:13)
[2016-10-16] MEDS: ATORVASTATIN 20 MG TAB PO SCH (20:13)
[2016-10-16] MEDS: ARIPiprazole 10 MG TAB PO SCH (20:13)
[2016-10-16] MEDS: DIVALPROEX ER 500 MG TAB.ER.24H PO SCH (20:13)
--- NOTE | 2016-10-16 22:30 | P.PN ---
Subjective Principal diagnosis: Fever with pain and swelling to his right foot This is a 70-year-old male who was recently hospitalized from September 06 through September 08 which time he was seen by ID service. He was having right lower extremity pain for which she was diagnosed with a DVT and gout. Patient was discharged home on Xarelto and colchicine. He was seen in consultation by Dr. Palmer as well. Patient states that he went to [facility] and did very well with physical therapy and he has been home for about 2 weeks now. He developed fever at home and he does not recall how long that had been going on. He also has had significant pain in the right foot that makes it difficult for him to ambulate. He states the pain comes on all of a sudden and feels like a nerve pain. He has had decreased oral intake and his related to the ER staff that he was pale, weak and sleeping more. Patient states that he has had weight loss of 95 pounds over the past year. He states this started after his pelvis fracture from a fall 1 year ago and he has had issues with pain control in the pelvis area. Patient return to [facility] emergency center. Right foot x-ray showed multiple hammertoe deformities and no fracture. Ultrasound of the right lower extremity was negative for DVT which is changed from his previous ultrasound done at the end of August. Patient was admitted to the [facility] floor and subsequently developed a fever on October 14 of 101.2. White count 10 and a GFR greater than 60. CRP 273.5 and ESR 48. Troponin was negative. Urinalysis was clear nitrate and leukoesterase negative. Stool for occult blood was positive. GI services are on consult as well. Nurse relates that patient had more redness to his right foot during the night and it was wrapped and Silvadene was placed on the foot. He was also started on Rocephin. Chest x-ray showed no acute abnormalities. Patient denies having any chest pain, shortness of breath, cough, sputum production. He denies any nausea or vomiting. He states sometimes he has a very good appetite but he is picky about what he eats. He states he has diarrhea about one time per week. He denies any recent falls or injuries to his foot. Today he is feeling better. There is less pain and discomfort. MRI has been performed and we await the results to evaluate for the possibility of fracture, osteomyelitis, or gouty arthritis. It is noted the patient is starting to feel a bit better but has yet to ambulate. Objective - Vital Signs Vital signs: Vital Signs Temp 98.2 F 10/16/16 15:00 Pulse 59 L 10/16/16 15:00 Resp 16 10/16/16 15:00 BP 159/70 10/16/16 15:00 Pulse Ox 97 10/16/16 15:00 Intake & Output 10/16/16 10/16/16 10/17/16 06:59 18:59 06:59 Intake Total 900 800 Output Total 600 Balance 900 200 Intake: IV 900 800 Sodium Chloride 0.9% 1, 900 700 000 ml @ 100 mls/hr IV . Q10H [facility] Rx#:[id number] cefTRIAXone 1,000 mg In 100 Sodium Chloride 0.9% 50 ml @ 100 mls/hr IVPB Q24HR [facility] Rx#:[id number] Output: Urine 600 Other: Voiding Method Diaper Diaper # Voids 2 - Exam Gen: This is an obese 70-year-old male. He appears to be in no acute distress. HEENT: Head is atraumatic, normocephalic. Pupils equal, round. Sclerae is anicteric. Conjunctiva pink. Mucous membranes of the mouth are moist. Patient is edentulous with dentures in place. No thrush noted. NECK: Short and thick. Supple. No JVD. No lymphadenopathy. No thyromegaly. LUNGS: Clear to auscultation. No wheezes or rhonchi. No intercostal retractions. HEART: Regular rate and rhythm. No murmur. ABDOMEN: Obese Soft. Bowel sounds are present. No masses. No tenderness. EXTREMITIES: The edema to the right foot is improved but not completely resolved. The significant warmth and tenderness and erythema have also started to improve. Onychomycosis bilaterally. Multiple hammertoes.. No calf tenderness. NEUROLOGICAL: Patient is awake, alert and oriented x2. Generalized weakness. - Labs CBC & Chem 7: 10/15/16 08:33 10/15/16 08:33 Labs: Microbiology - Last 24 Hours (Table) 10/14/16 22:52 Blood Culture - Preliminary Blood No Growth after 24 hours 10/14/16 22:35 Blood Culture - Preliminary Blood No Growth after 24 hours Laboratory Results WBC 12.8 k/uL (3.8-10.6) H 10/15/16 08:33 RBC 3.59 m/uL (4.30-5.90) L 10/15/16 08:33 Hgb 10.9 gm/dL (13.0-17.5) L 10/15/16 08:33 Hct 31.7 % (39.0-53.0) L 10/15/16 08:33 MCV 88.4 fL (80.0-100.0) 10/15/16 08:33 MCH 30.2 pg (25.0-35.0) 10/15/16 08:33 MCHC 34.2 g/dL (31.0-37.0) 10/15/16 08:33 RDW 13.9 % (11.5-15.5) 10/15/16 08:33 Plt Count 192 k/uL (150-450) 10/15/16 08:33 Neutrophils % 86 % 10/15/16 08:33 Lymphocytes % 7 % 10/15/16 08:33 Monocytes % 6 % 10/15/16 08:33 Eosinophils % 1 % 10/15/16 08:33 Basophils % 0 % 10/15/16 08:33 Neutrophils # 11.0 k/uL (1.3-7.7) H 10/15/16 08:33 Lymphocytes # 0.9 k/uL (1.0-4.8) L 10/15/16 08:33 Monocytes # 0.8 k/uL (0-1.0) 10/15/16 08:33 Eosinophils # 0.1 k/uL (0-0.7) 10/15/16 08:33 Basophils # 0.0 k/uL (0-0.2) 10/15/16 08:33 ESR 48 mm/hr (0-15) H 10/14/16 22:35 Sodium 141 mmol/L (137-145) 10/15/16 08:33 Potassium 4.5 mmol/L (3.5-5.1) 10/15/16 08:33 Chloride 105 mmol/L (98-107) 10/15/16 08:33 Carbon Dioxide 26 mmol/L (22-30) 10/15/16 08:33 Anion Gap 10 mmol/L 10/15/16 08:33 BUN 17 mg/dL (9-20) 10/15/16 08:33 Creatinine 0.95 mg/dL (0.66-1.25) 10/15/16 08:33 Est GFR (MDRD) Af Amer >60 (>60 ml/min/1.73 sqM) 10/15/16 08:33 Est GFR (MDRD) Non-Af >60 (>60 ml/min/1.73 sqM) 10/15/16 08:33 Glucose 133 mg/dL (74-99) H 10/15/16 08:33 POC Glucose (mg/dL) 163 mg/dL (75-99) H 10/13/16 20:48 POC Glu Bag Sealer ID Deo Dial 10/13/16 20:48 Uric Acid 4.5 mg/dL (3.5-8.5) 10/13/16 14:11 Calcium 8.6 mg/dL (8.4-10.2) 10/15/16 08:33 Magnesium 2.2 mg/dL (1.6-2.3) 10/15/16 08:33 Total Bilirubin 1.2 mg/dL (0.2-1.3) 10/15/16 08:33 AST 16 U/L (17-59) L 10/15/16 08:33 ALT 20 U/L (21-72) L 10/15/16 08:33 Alkaline Phosphatase 49 U/L (38-126) 10/15/16 08:33 Troponin I <0.012 ng/mL (0.000-0.034) 10/13/16 14:11 C-Reactive Protein 273.5 mg/L (<10.0) H 10/14/16 22:35 Total Protein 5.3 g/dL (6.3-8.2) L 10/15/16 08:33 Albumin 2.8 g/dL (3.5-5.0) L 10/15/16 08:33 Prealbumin 12 mg/dL (18-36) L 10/15/16 11:39 Urine Color Yellow 10/13/16 19:45 Urine Appearance Clear (Clear) 10/13/16 19:45 Urine pH 6.0 (5.0-8.0) 10/13/16 19:45 Ur Specific [place] 1.019 (1.001-1.035) 10/13/16 19:45 Urine Protein Negative (Negative) 10/13/16 19:45 Urine Glucose (UA) Negative (Negative) 10/13/16 19:45 Urine Ketones 1+ (Negative) H 10/13/16 19:45 Urine Blood Negative (Negative) 10/13/16 19:45 Urine Nitrite Negative (Negative) 10/13/16 19:45 Urine Bilirubin Negative (Negative) 10/13/16 19:45 Urine Urobilinogen <2.0 mg/dL (<2.0) 10/13/16 19:45 Ur Leukocyte Esterase Negative (Negative) 10/13/16 19:45 Stool Occult Blood Positive (Negative) 10/13/16 13:35 Microbiology 10/14/16 22:52 Blood Blood Culture - Preliminary No Growth after 24 hours 10/14/16 22:35 Blood Blood Culture - Preliminary No Growth after 24 hours - Imaging and Cardiology MRI was reviewed. Weight final reading from the radiologist Assessment and Plan (1) Cellulitis of right foot Narrative/Plan: 70-year-old male who has significant aggressive medical troubles over time. He's had weight loss and declining status and failure to thrive. The patient presents to hospital with inability to walk because of significant pain and swelling to his right foot. There is concern for cellulitis of the area and antibiotic therapy with ceftriaxone was utilized. He is also being treated for gout. There is improvement today. He is seen by orthopedics with no plan for intervention but are waiting for the MRI also. At this time most likely will be an acute gouty flare and was need ongoing aggressive treatment of gout. May require a specialty shoe. Likely would do well to go to extended care for rehab and improvement of his strength. Status: Acute (2) Gout Status: Acute
[2016-10-17 07:38] VITALS: RESP 18
[2016-10-17] MEDS: amLODIPine 10 MG TAB PO SCH (08:00)
[2016-10-17] MEDS: ALLOPURINOL 100 MG TAB PO SCH (08:00)
[2016-10-17] MEDS: SODIUM CHLORIDE 0.9% 1,000 ML IV SCH (08:00)
[2016-10-17] MEDS: SILVER sulfADIAZINE Cream 400 GM 1 APPLIC APPLIC TOPICAL SCH (08:00)
[2016-10-17] MEDS: RIVAROXABAN 10 MG TAB PO SCH (08:00)
[2016-10-17] MEDS: ASPIRIN 81 MG CHEW PO SCH (08:00)
[2016-10-17] MEDS: FERROUS SULFATE 325 MG TAB PO SCH (08:01)
--- NOTE | 2016-10-17 08:02 | MR ---
EXAMINATION TYPE: MR foot RT wo/w con DATE OF EXAM: 10/16/2016 3:03 PM COMPARISON: Right foot x-ray October 13, 2016. HISTORY: Fracture versus infection of right foot per order. History of hypertension and gout. Lateral side pain on admission 3 days ago. CONTRAST: Standard multiplanar, multisequence MRI departmental protocol utilizing 20 mL intravenous MultiHance gadolinium contrast. FINDINGS: There is diffuse enhancement of the muscles at midfoot metatarsal level most prominent surr ounding second and third toes but also surrounding medial aspect of the fourth toe and plantar surfac e of fifth toe. Bone marrow signal intensity is maintained without suspicious edema or enhancement id entified. No linear diminished T1 signal is seen to suggest osseous fracture. Hammertoe deformity lori es evaluated at toe level somewhat suboptimal. No well-formed fluid collection or abscess is seen. So ft tissue and muscular change extends posteriorly roughly level of the anterior talus with some hindf oot involvement identified. Moderate to large size inferior calcaneal spur is redemonstrated. Normal sinus tarsi fat is seen. Mil d to moderate spurring and hind and midfoot articulations is present. IMPRESSION: Midfoot inflammatory change diffusely involving deeper muscles and adjacent soft tissue consistent wi th a significant myositis. No MRI evidence for occult fracture. No convincing evidence for acute oste omyelitis at this time.
--- NOTE | 2016-10-17 14:10 | P.PN ---
Subjective We were asked to evaluate this patient and make recommendations on his obstructive sleep apnea treatment. This is a 70-year-old male who was recently hospitalized from September 06 through September 08. He was having right lower extremity pain for which she was diagnosed with a DVT and gout. Patient was discharged home on Xarelto and colchicine. He was seen in consultation by Dr. Palmer as well. Patient states that he went to [facility] and did very well with physical therapy and he has been home for about 2 weeks now. He developed fever at home and he does not recall how long that had been going on. He also has had significant pain in the right foot that makes it difficult for him to ambulate. He states the pain comes on all of a sudden and feels like a nerve pain. He has had decreased oral intake and his related to the ER staff that he was pale, weak and sleeping more. Patient states that he has had weight loss of 95 pounds over the past year. He states this started after his pelvis fracture from a fall 1 year ago and he has had issues with pain control in the pelvis area. Patient return to [facility] emergency center. Right foot x-ray showed multiple hammertoe deformities and no fracture. Ultrasound of the right lower extremity was negative for DVT which is changed from his previous ultrasound done at the end of August. Patient was admitted to the [facility] floor and subsequently developed a fever on October 14 of 101.2. White count 10 and a GFR greater than 60. CRP 273.5 and ESR 48. Troponin was negative. Urinalysis was clear nitrate and leukoesterase negative. Stool for occult blood was positive. GI services are on consult as well. In terms of obstructive sleep apnea, the patient was diagnosed having severe DAVID with an apnea popping index of 122. The patient was given CPAP therapy at a pressure of 16 cm of water. His treatment was not absolutely successful and the patient was having difficulty in tolerating higher pressure and how is having difficulty in getting the right mask interface. Based on this, I lowered the CPAP pressure down to 14 cm of water and I try different masks, and ultimately the patient came in for a Pap nap study during which the pressure was At 14 cm of water and the patient was given a airfit F10 fullface mask. The family has brought all this equipment and they're currently at the bedside. The patient will try to use it during this current hospital stay and hopefully this will go towards his compliance data as this will be needed to continue improving and sustaining his CPAP machine. The patient is seen again today 10/16/2016 in follow-up on the regular medical floor. He is awake and alert in no acute distress. He did utilize his CPAP machine last night per 5-1/2 hours which is an improvement compared to previous. He has had no further acute respiratory distress. He is maintaining good O2 saturations in the upper 90s on 2 L/m per nasal cannula. He's been afebrile. Blood cultures reveal no growth to date. He has been seen by Dr. Jones from infectious disease who feels the significant right foot pain is most likely gout but an MRI has been ordered, the results of which are pending. The patient is seen again today in follow-up 10/17/2016. He remains awake and alert in no acute distress. Unfortunately he only wore his CPAP approximate 2 hours last night. He takes off the mask and refuses to wear it according to staff and a CPAP machine evaluation. The importance with compliance was again as discussed with both the patient and his who is at the bedside. Otherwise he has no pulmonary complaints. No worsening shortness of breath, cough or congestion. He is maintaining good O2 saturations in the 90s on 2 L/m per nasal cannula. He's been afebrile. He states his right ankle and foot pain is improved today as compared to yesterday. The MRI of his foot revealed inflammatory changes involving deeper muscles and adjacent soft tissue consistent with a significant myositis. There is no occult fracture. No acute osteomyelitis. Objective - Vital Signs Vital signs: Vital Signs Temp 98.9 F 10/17/16 07:00 Pulse 56 L 10/17/16 08:00 Resp 18 10/17/16 08:00 BP 150/65 10/17/16 07:00 Pulse Ox 91 L 10/17/16 07:00 Intake & Output 10/16/16 10/17/16 10/17/16 18:59 06:59 18:59 Intake Total 800 1350 1000 Output Total 600 Balance 200 1350 1000 Weight 90.265 kg Intake: IV 800 1200 700 Sodium Chloride 0.9% 1, 700 1200 600 000 ml @ 100 mls/hr IV . Q10H [facility] Rx#:[id number] cefTRIAXone 1,000 mg In 100 100 Sodium Chloride 0.9% 50 ml @ 100 mls/hr IVPB Q24HR [facility] Rx#:[id number] Oral 150 300 Output: Urine 600 Other: Voiding Method Diaper Urinal Urinal Diaper Diaper # Voids 1 2 # Bowel Movements 0 - Exam Head exam was generally normal. There was no scleral icterus or corneal arcus. Mucous membranes were moist.Neck was supple and without jugular venous distension, thyromegaly, or carotid bruits. Carotids were easily palpable bilaterally. There was no adenopathy. The patient has significant crowding of the posterior oropharynx. There is no goiter or neck masses.Lungs were clear to auscultation and percussion, and with normal diaphragmatic excursion. No wheezes or rales were noted. Cardiac exam revealed the PMI to be normally situated and sized. The rhythm was regular and no extrasystoles were noted during several minutes of auscultation. The first and second heart sounds were normal and physiologic splitting of the second heart sound was noted. There were no murmurs, rubs, clicks, or gallops. Abdominal exam revealed normal bowel sounds. The abdomen was soft, non-tender, and without masses, organomegaly, or appreciable enlargement of the abdominal aorta. Right lower extremity shows some diminished range of motion in the right ankle and foot with some swelling. There is no erythema. No joint deformity. No open wounds or ulcers. - Labs CBC & Chem 7: 10/15/16 08:33 10/15/16 08:33 Labs: Microbiology - Last 24 Hours (Table) 10/14/16 22:52 Blood Culture - Preliminary Blood No Growth after 48 hours 10/14/16 22:35 Blood Culture - Preliminary Blood No Growth after 48 hours Assessment and Plan Plan: Assessment #1 Severe obstructive sleep apnea with an AHI of 122. The patient has lost considerable amount of weight. Initial saturation was done with a CPAP pressure of 16 cm water and following that the pressure was lowered down to 14. The appropriate Pap nap study was also done and the patient is utilizing airfit F10 fullface mask. We'll restart the treatment. We will monitor his compliancy. 2 nights ago the patient did wear his mask for approximately 5-1/2 hours. Unfortunately only approximate 2 hours last night. We have again discussed the importance of compliance with both the patient and his . #2 Dementia. #3 Diabetes mellitus. #4 Hyperlipidemia. #5 Hypertension. #6 Osteoarthritis. #7 Gout. #8 DVT of the right lower extremity, anticoagulated with Xarelto. #9 Acute right foot pain. MRI revealed mid foot inflammatory change diffusely involving deeper muscles with adjacent soft tissue consistent with a significant myositis. No occult fracture. No acute osteomyelitis. Plan: The patient was seen and evaluated by Dr. Muse. His CPAP machine was evaluated today. The patient only utilized for approximately 2 hours last night. The patient and his are both again encouraged regarding the importance of compliance especially based on his significant obstructive sleep apnea and AHI of 122. He also could wear during the day while napping. We will see him in follow-up in the outpatient setting and make further adjustments as necessary.
[2016-10-17] MEDS ORDERED: methylPREDNISolone SOD SUCCI 125 MG/2 ML VIAL IV STA (14:34)
--- NOTE | 2016-10-17 15:03 | DS ---
DATE OF ADMISSION: 10/14/2016 DATE OF DISCHARGE: FINAL DIAGNOSES: 1. Right leg pain and foot cellulitis, possibly acute gout. 2. Severe fatigue and generalized asthenia. 3. Dehydration. 4. Right knee pain, degenerative joint disease. 5. Sleep apnea. acute delirium 6. Weight loss and anorexia. 7. Chronic obstructive pulmonary disease. 8. Dementia. 9. History of deep venous thrombosis of the right leg. 10. Hypertension. 11. Hyperlipidemia. 12. Chronic renal failure history. 13. Hypoalbuminemia with mild to moderate protein-calorie malnutrition. 14. Increased CRP. 15. Increased random blood sugar. 16. Increased white count. 17. Anemia, normocytic. 18. FULL CODE. DISCHARGE DISPOSITION: The patient will be discharged in stable condition with guarded prognosis. Patient will be transferred to [facility] the [place] with Dr. Dupree. Otherwise, total time taken 35 minutes. HISTORY OF PRESENT ILLNESS: This 70-year-old gentleman with a past medical history of multiple medical problems, as mentioned earlier, being followed by Dr. Alessandro Lyon in the outpatient setting, was admitted with pain and swelling of the right foot. Patient was evaluated and gout was suspected with some cellulitis; treated symptomatically; improved significantly. On exam, vitas are stable. CARDIOVASCULAR SYSTEM: S1, S2 muffled. RESPIRATORY SYSTEM: Breath sounds diminished at the bases. No rhonchi. No crackles. The foot x-ray showed some myositis. DISCHARGE ADVICE AND MEDICATIONS: 1. Diet is cardiac. 2. Activity limited until followup. 3. Followup with Dr. Alessandro Lyon [facility]. 4. Followup with Dr. Dupree in 2 to 3 days in the [facility]. 5. CBC, BMP in 2 to 3 days. 6. Abilify 10 mg at bedtime. 7. Tylenol 1000 mg q.6 p.r.n. 8. Zyloprim 200 mg p.o. daily. 9. Aspirin 81 mg p.o. daily. 10. Lipitor 20 mg at bedtime. 11. Ceftin 500 mg p.o. b.i.d. for 5 days. 12. Depakote ER 1000 mg at bedtime. 13. Iron sulfate 325 mg daily. 14. Fish oil 1 p.o. b.i.d. 15. Hydrocodone 5 mg q.6 p.r.n. 16. Myrbetriq 50 mg at bedtime. 17. Xarelto 20 mg daily. 18. Silver sulfadiazine local application. 19. Norvasc 10 mg p.o. daily. 20. Colchicine 0.6 p.o. b.i.d. for 2 days and then 0.6 daily. MTDD
[2016-10-17 15:28] VITALS: BP 160/69; TEMP 98.4
[2016-10-17] MEDS ORDERED: predniSONE 20 MG TAB PO STA (15:56)
[2016-10-17 16:31] VITALS: PULSE 56
--- NOTE | 2016-10-17 18:31 | P.PN ---
Subjective Principal diagnosis: Fever with pain and swelling to his right foot This is a 70-year-old male who was recently hospitalized from September 06 through September 08 which time he was seen by ID service. He was having right lower extremity pain for which she was diagnosed with a DVT and gout. Patient was discharged home on Xarelto and colchicine. He was seen in consultation by Dr. Palmer as well. Patient states that he went to [facility] and did very well with physical therapy and he has been home for about 2 weeks now. He developed fever at home and he does not recall how long that had been going on. He also has had significant pain in the right foot that makes it difficult for him to ambulate. He states the pain comes on all of a sudden and feels like a nerve pain. He has had decreased oral intake and his related to the ER staff that he was pale, weak and sleeping more. Patient states that he has had weight loss of 95 pounds over the past year. He states this started after his pelvis fracture from a fall 1 year ago and he has had issues with pain control in the pelvis area. Patient return to [facility] emergency center. Right foot x-ray showed multiple hammertoe deformities and no fracture. Ultrasound of the right lower extremity was negative for DVT which is changed from his previous ultrasound done at the end of August. Patient was admitted to the [facility] floor and subsequently developed a fever on October 14 of 101.2. White count 10 and a GFR greater than 60. CRP 273.5 and ESR 48. Troponin was negative. Urinalysis was clear nitrate and leukoesterase negative. Stool for occult blood was positive. GI services are on consult as well. Nurse relates that patient had more redness to his right foot during the night and it was wrapped and Silvadene was placed on the foot. He was also started on Rocephin. Chest x-ray showed no acute abnormalities. Patient denies having any chest pain, shortness of breath, cough, sputum production. He denies any nausea or vomiting. He states sometimes he has a very good appetite but he is picky about what he eats. He states he has diarrhea about one time per week. He denies any recent falls or injuries to his foot. Today he is feeling better. There is less pain and discomfort. MRI has been performed and reveals evidence of some myositis to the dorsum of the right foot. No Evidence of any septic arthritis or acute joint involvement. Objective - Vital Signs Vital signs: Vital Signs Temp 98.4 F 10/17/16 15:00 Pulse 56 L 10/17/16 16:00 Resp 18 10/17/16 16:00 BP 160/69 10/17/16 15:00 Pulse Ox 93 L 10/17/16 15:00 Intake & Output 10/16/16 10/17/16 10/17/16 18:59 06:59 18:59 Intake Total 800 1350 1000 Output Total 600 600 Balance 200 1350 400 Weight 90.265 kg Intake: IV 800 1200 700 Sodium Chloride 0.9% 1, 700 1200 600 000 ml @ 100 mls/hr IV . Q10H BALAJI Rx#:[id number] cefTRIAXone 1,000 mg In 100 100 Sodium Chloride 0.9% 50 ml @ 100 mls/hr IVPB Q24HR BALAJI Rx#:[id number] Oral 150 300 Output: Urine 600 600 Other: Voiding Method Diaper Urinal Urinal Diaper Diaper # Voids 1 2 # Bowel Movements 0 - Exam Gen: This is an obese 70-year-old male. He appears to be in no acute distress. HEENT: Head is atraumatic, normocephalic. Pupils equal, round. Sclerae is anicteric. Conjunctiva pink. Mucous membranes of the mouth are moist. Patient is edentulous with dentures in place. No thrush noted. NECK: Short and thick. Supple. No JVD. No lymphadenopathy. No thyromegaly. LUNGS: Clear to auscultation. No wheezes or rhonchi. No intercostal retractions. HEART: Regular rate and rhythm. No murmur. ABDOMEN: Obese Soft. Bowel sounds are present. No masses. No tenderness. EXTREMITIES: The edema to the right foot is improved but not completely resolved. The significant warmth and tenderness and erythema has resolved. The foot can be manipulated quite significantly without severe complaints of pain. This was very painful just 2 days ago. Good clinical improvement. Onychomycosis bilaterally. Multiple hammertoes.. No calf tenderness. NEUROLOGICAL: Patient is awake, alert and oriented x2. Generalized weakness. - Labs CBC & Chem 7: 10/15/16 08:33 10/15/16 08:33 Labs: Microbiology - Last 24 Hours (Table) 04/04/17 22:52 Blood Culture - Preliminary Blood No Growth after 48 hours 10/14/16 22:35 Blood Culture - Preliminary Blood No Growth after 48 hours Laboratory Results WBC 12.8 k/uL (3.8-10.6) H 10/15/16 08:33 RBC 3.59 m/uL (4.30-5.90) L 10/15/16 08:33 Hgb 10.9 gm/dL (13.0-17.5) L 10/15/16 08:33 Hct 31.7 % (39.0-53.0) L 10/15/16 08:33 MCV 88.4 fL (80.0-100.0) 10/15/16 08:33 MCH 30.2 pg (25.0-35.0) 10/15/16 08:33 MCHC 34.2 g/dL (31.0-37.0) 10/15/16 08:33 RDW 13.9 % (11.5-15.5) 10/15/16 08:33 Plt Count 192 k/uL (150-450) 10/15/16 08:33 Neutrophils % 86 % 10/15/16 08:33 Lymphocytes % 7 % 10/15/16 08:33 Monocytes % 6 % 10/15/16 08:33 Eosinophils % 1 % 10/15/16 08:33 Basophils % 0 % 10/15/16 08:33 Neutrophils # 11.0 k/uL (1.3-7.7) H 10/15/16 08:33 Lymphocytes # 0.9 k/uL (1.0-4.8) L 10/15/16 08:33 Monocytes # 0.8 k/uL (0-1.0) 10/15/16 08:33 Eosinophils # 0.1 k/uL (0-0.7) 10/15/16 08:33 Basophils # 0.0 k/uL (0-0.2) 10/15/16 08:33 ESR 48 mm/hr (0-15) H 10/14/16 22:35 Sodium 141 mmol/L (137-145) 10/15/16 08:33 Potassium 4.5 mmol/L (3.5-5.1) 10/15/16 08:33 Chloride 105 mmol/L (98-107) 10/15/16 08:33 Carbon Dioxide 26 mmol/L (22-30) 10/15/16 08:33 Anion Gap 10 mmol/L 10/15/16 08:33 BUN 17 mg/dL (9-20) 10/15/16 08:33 Creatinine 0.95 mg/dL (0.66-1.25) 10/15/16 08:33 Est GFR (MDRD) Af Amer >60 (>60 ml/min/1.73 sqM) 10/15/16 08:33 Est GFR (MDRD) Non-Af >60 (>60 ml/min/1.73 sqM) 10/15/16 08:33 Glucose 133 mg/dL (74-99) H 10/15/16 08:33 POC Glucose (mg/dL) 163 mg/dL (75-99) H 10/13/16 20:48 POC Glu Motion Picture Set Grip ID Deo Dial 10/13/16 20:48 Uric Acid 4.5 mg/dL (3.5-8.5) 10/13/16 14:11 Calcium 8.6 mg/dL (8.4-10.2) 10/15/16 08:33 Magnesium 2.2 mg/dL (1.6-2.3) 10/15/16 08:33 Total Bilirubin 1.2 mg/dL (0.2-1.3) 10/15/16 08:33 AST 16 U/L (17-59) L 10/15/16 08:33 ALT 20 U/L (21-72) L 10/15/16 08:33 Alkaline Phosphatase 49 U/L (38-126) 10/15/16 08:33 Troponin I <0.012 ng/mL (0.000-0.034) 10/13/16 14:11 C-Reactive Protein 273.5 mg/L (<10.0) H 10/14/16 22:35 Total Protein 5.3 g/dL (6.3-8.2) L 10/15/16 08:33 Albumin 2.8 g/dL (3.5-5.0) L 10/15/16 08:33 Prealbumin 12 mg/dL (18-36) L 10/15/16 11:39 Urine Color Yellow 10/13/16 19:45 Urine Appearance Clear (Clear) 10/13/16 19:45 Urine pH 6.0 (5.0-8.0) 10/13/16 19:45 Ur Specific Sieper 1.019 (1.001-1.035) 10/13/16 19:45 Urine Protein Negative (Negative) 10/13/16 19:45 Urine Glucose (UA) Negative (Negative) 10/13/16 19:45 Urine Ketones 1+ (Negative) H 10/13/16 19:45 Urine Blood Negative (Negative) 10/13/16 19:45 Urine Nitrite Negative (Negative) 10/13/16 19:45 Urine Bilirubin Negative (Negative) 10/13/16 19:45 Urine Urobilinogen <2.0 mg/dL (<2.0) 10/13/16 19:45 Ur Leukocyte Esterase Negative (Negative) 10/13/16 19:45 Stool Occult Blood Positive (Negative) 10/13/16 13:35 Microbiology 10/14/16 22:52 Blood Blood Culture - Preliminary No Growth after 48 hours 10/14/16 22:35 Blood Blood Culture - Preliminary No Growth after 48 hours Assessment and Plan (1) Cellulitis of right foot Narrative/Plan: 70-year-old male who has significant aggressive medical troubles over time. He's had weight loss and declining status and failure to thrive. The patient presents to hospital with inability to walk because of significant pain and swelling to his right foot. There is concern for cellulitis of the area and antibiotic therapy with ceftriaxone was utilized. He is also being treated for gout. There is improvement today. He is seen by orthopedics with no plan for intervention , MRI is now complete and shows evidence of some mild myositis of the dorsum of the foot without any joint involvement. No destruction or fractures. At this time most likely will be an acute gouty flare and was need ongoing aggressive treatment of gout. May require a specialty shoe. Is going to extended care for rehab and improvement of his strength. Family is concerned about his status. He likely is having progressive dementia. Status: Acute (2) Gout Status: Acute
== END 2016-10-17 17:50 | DRG 641 ==
LOC: EC 12:27 → 3OBS 18:03 → OBSVTOIN 10-14 09:47 → 5MS5E 10-14 11:30
PROVIDERS: ADMIT Family Medicine; ATTEND Family Medicine
DX: E86.0 Dehydration (principal); E44.0 Moderate protein-calorie malnutrition; F03.90 Unspecified dementia, unspecified severity, without behavioral disturbance, psychotic disturbance, mood disturbance, and anxiety; E11.22 Type 2 diabetes mellitus with diabetic chronic kidney disease; L03.115 Cellulitis of right lower limb; J44.9 Chronic obstructive pulmonary disease, unspecified; D64.9 Anemia, unspecified; E78.5 Hyperlipidemia, unspecified; F32.9 Major depressive disorder, single episode, unspecified; F41.9 Anxiety disorder, unspecified; G47.33 Obstructive sleep apnea (adult) (pediatric); I12.9 Hypertensive chronic kidney disease with stage 1 through stage 4 chronic kidney disease, or unspecified chronic kidney disease; M10.9 Gout, unspecified; M19.90 Unspecified osteoarthritis, unspecified site; M20.40 Other hammer toe(s) (acquired), unspecified foot; M60.9 Myositis, unspecified; N18.2 Chronic kidney disease, stage 2 (mild); N40.0 Benign prostatic hyperplasia without lower urinary tract symptoms; R62.7 Adult failure to thrive; Z79.01 Long term (current) use of anticoagulants; Z79.82 Long term (current) use of aspirin; Z79.899 Other long term (current) drug therapy; Z82.49 Family history of ischemic heart disease and other diseases of the circulatory system; Z86.718 Personal history of other venous thrombosis and embolism; Z87.891 Personal history of nicotine dependence
CPT/HCPCS: 36415; 71010; 80053; 81003; 82272; 83735; 84134; 84484; 84550; 85025; 85652; 86140; 87040; 93005; 94760; 96361; 96374; 96375; 99285

== ENCOUNTER → 2016-11-07 | Outpatient (CLI) | payer MEDICARE, BC ==
--- NOTE | 2016-11-07 14:30 | CT ---
EXAMINATION TYPE: CT brain wo con DATE OF EXAM: 11/07/2016 2:21 PM HISTORY: Subdural hematoma. Falling. CT DLP: 1090.40 mGycm. Automated Exposure Control for Dose Reduction was Utilized. TECHNIQUE: CT scan of the head is performed without contrast. COMPARISON: CT brain November 12, 2015. FINDINGS: There is no acute intracranial hemorrhage or midline shift identified. There is diffuse v entricular and sulcal prominence consistent with diffuse age-related cerebral atrophy. There is low- attenuation in the periventricular white matter consistent with chronic small vessel ischemic change. The globes are intact and the visualized sinuses are clear. IMPRESSION: No acute intracranial hemorrhage or midline shift. There is mild to moderate diffuse ag e-related cerebral atrophy and chronic small vessel ischemic change redemonstrated without significan t change from prior study identified.
== END | disposition home or self-care (01) ==
LOC: RADCTMAIN 13:21
PROVIDERS: ATTEND Psychiatry & Neurology Neurology
DX: G31.9 Degenerative disease of nervous system, unspecified (principal); I67.82 Cerebral ischemia; I62.00 Nontraumatic subdural hemorrhage, unspecified
CPT/HCPCS: 70450

== ENCOUNTER → 2018-08-03 | Outpatient (CLI) | payer MEDICARE ==
--- NOTE | 2018-08-03 16:35 | US ---
EXAMINATION TYPE: US venous doppler duplex LE DATE OF EXAM: 08/03/2018 4:18 PM COMPARISON: US 2017 & 2016 CLINICAL HISTORY: R60.0 LOCALIZED EDEMA. LOWER EXTREMITY. Bilateral leg swelling, history of DVT, pat ient on blood thinners SIDE PERFORMED: Bilateral TECHNIQUE: The lower extremity deep venous system is examined utilizing real time linear array sonog caroline with graded compression, doppler sonography and color-flow sonography. VESSELS IMAGED: External Iliac Vein (EIV) Common Femoral Vein Deep Femoral Vein Greater Saphenous Vein * Femoral Vein Popliteal Vein Small Saphenous Vein * Proximal Calf Veins (* superficial vessels) Findings: Grayscale, color doppler, spectral doppler imaging performed of the deep veins of the lower extremities. There is normal flow, compressibility, vascular waveforms. IMPRESSION: RIGHT LOWER EXTREMITY: NEGATIVE FOR DVT. LEFT LOWER EXTREMITY: NEGATIVE FOR DVT .
== END ==
LOC: RADUSWWP 15:41
PROVIDERS: ATTEND Family Medicine
DX: R60.0 Localized edema (principal)
CPT/HCPCS: 93970

== ENCOUNTER 2019-04-21 14:51 | Emergency (ER) | payer MEDICARE ==
[2019-04-21 16:26] LABS: Basophils # (A) 0.1 k/uL (0-0.2); Basophils % (A) 1 %; Eosinophils # (A) 0.1 k/uL (0-0.7); Eosinophils % (A) 2 %; HCT 40.8 % (39.0-53.0); HGB 13.6 gm/dL (13.0-17.5); Lymphocytes # (A) 1.7 k/uL (1.0-4.8); Lymphocytes % (A) 23 %; MCH 30.1 pg (25.0-35.0); MCHC 33.3 g/dL (31.0-37.0); MCV 90.5 fL (80.0-100.0); Mean Platelet Volume 6.7; Monocytes # (A) 0.5 k/uL (0-1.0); Monocytes % (A) 6 %; Neutrophils # (A) 4.9 k/uL (1.3-7.7); Neutrophils % (A) 66 %; Platelet Count 171 k/uL (150-450); RBC 4.51 m/uL (4.30-5.90); WBC 7.4 k/uL (3.8-10.6)
--- NOTE | 2019-04-21 16:26 | CT ---
EXAMINATION TYPE: CT brain wo con DATE OF EXAM: 04/21/2019 COMPARISON: 11/07/2016 HISTORY: 73-year-old male Increased confusion. Fall 1 week ago TECHNIQUE: Examination was done in axial plane without intravenous contrast. Coronal and sagittal r econstructions performed. CT DLP: 1084.4 mGycm Automated exposure control for dose reduction was used. FINDINGS: There is no evidence of acute intracranial hemorrhage, acute ischemic changes, mass, mass-effect, or extra-axial fluid collection. There is no effacement of cerebral sulci or basal subarachnoid cister ns. There is no midline shift. Marc-white matter distinction is preserved. Mild generalized supratentorial volume loss with more moderate central cerebral atrophy and secondary mild ventriculomegaly. Gunner's ratio is calculated at 0.36 versus 0.32, previously. Mild periventricular white matter hypodensities. Paranasal sinuses and mastoid air cells well pneumatized. Orbits and globes are intact. IMPRESSION: 1. Moderate generalized atrophy an mild changes of chronic small vessel ischemic disease. 2. Mild hydrocephalus, likely on an ex vacuo basis from central atrophy though noted to be increased from 11/07/2016. Correlate to exclude a component of NPH. 3. Otherwise, no acute intracranial abnormality seen.
--- NOTE | 2019-04-21 16:28 | XR ---
EXAMINATION TYPE: XR chest 2V DATE OF EXAM: 04/21/2019 COMPARISON: 10/14/2016 HISTORY: 73-year-old male confusion TECHNIQUE: AP and lateral views FINDINGS: Heart mildly enlarged. Aorta within normal limits. Mild diffuse interstitial and vascular prominence. No luis consolidation or pleural effusion. Reversed left shoulder arthroplasty partially seen. IMPRESSION: Mild cardiomegaly and interstitial changes, possible mild pulmonary vascular congestion.
[2019-04-21 16:30] VITALS: RESP 18
[2019-04-21 16:43] LABS: VBG PH 7.44 (7.31-7.41)
[2019-04-21 16:47] LABS: Albumin 3.8 g/dL (3.5-5.0); Bilirubin, Delta 0.2 mg/dL (0.0-0.2); Bilirubin,Unconjugated 0.6 mg/dL (0.0-1.1); Calcium 9.3 mg/dL (8.4-10.2); Potassium 3.7 mmol/L (3.5-5.1); Total Bilirubin 0.8 mg/dL (0.2-1.3); Total Protein 6.6 g/dL (6.3-8.2)
[2019-04-21 17:43] LABS: Appearance,Urine Clear (Clear); Bilirubin,Urine Negative (Negative); Blood,Urine Negative (Negative); Color,Urine Yellow; Glucose,Urine (UA) 4+ (Negative); Ketones,Urine Negative (Negative); Leukocyte Esterase,Urine Negative (Negative); Nitrite,Urine Negative (Negative); Protein,Urine Negative (Negative); Specific Gravity,Urine 1.025 (1.001-1.035)
--- NOTE | 2019-04-21 18:38 | US ---
EXAMINATION TYPE: US venous doppler duplex LE DATE OF EXAM: 04/21/2019 5:47 PM COMPARISON: US 2019 CLINICAL HISTORY: leg swelling. Intermittent leg swelling. HX DVT. Patient on Xarelto and baby aspiri n. SIDE PERFORMED: Bilateral TECHNIQUE: The lower extremity deep venous system is examined utilizing real time linear array sonog caroline with graded compression, doppler sonography and color-flow sonography. VESSELS IMAGED: Common Femoral Vein Deep Femoral Vein Greater Saphenous Vein * Femoral Vein Popliteal Vein Small Saphenous Vein * Proximal Calf Veins (* superficial vessels) *Limited due to edema. Right Leg: EIV not visualized. Limited groin access. No evidence of DVT in veins imaged from prox ca lf veins to CFV/GSV. Left Leg: EIV not visualized. Limited groin access. No evidence of DVT in veins imaged from prox blanca f veins to CFV/GSV. IMPRESSION: No evidence of deep venous thrombosis in both legs.
--- NOTE | 2019-04-21 19:00 | ED ---
Altered Mental Status HPI - General Chief Complaint: Altered Mental Status Stated Complaint: Change in mental status, weakness Time Seen by Provider: 04/21/19 15:10 Source: patient Mode of arrival: ambulatory Limitations: no limitations - History of Present Illness Initial Comments: 73-year-old male presenting with altered mental status gait instability and frequent urination with incontinence. Since states for the last 2 weeks the patient is becoming increasingly confused, combative, and aggressive. States he is now needing to wear a brief, and she's having to clean him up daily for multiple urinary incontinence episodes She states his gait has been unstable as well. She denies any head trauma. Patient is on Xarelto for previous DVT. Patient was seen by his physician today who recommended coming to the ED for further evaluation. She states the patient has been taking his medications as prescribed. She denies any new medications, F/C, constitutional symptoms. Patient denies any chest pain or shortness of breath. states the patient had an outpatient BLE doppler scheduled for increase leg swelling. - Related Data Home Medications Medication Instructions Recorded Confirmed Divalproex ER [Depakote ER] 1,000 mg PO HS 08/15/16 04/21/19 Mirabegron [Myrbetriq] 50 mg PO DAILY 08/15/16 04/21/19 Atorvastatin [Lipitor] 20 mg PO HS 09/01/16 04/21/19 Aspirin 81 mg PO DAILY 10/13/16 04/21/19 Ferrous Sulfate [Feosol] 325 mg PO DAILY 10/13/16 04/21/19 Rivaroxaban [Xarelto] 20 mg PO HS 10/13/16 04/21/19 Empagliflozin [Jardiance] 25 mg PO DAILY 04/21/19 04/21/19 Hydrochlorothiazide [Hydrodiuril] 25 mg PO DAILY 04/21/19 04/21/19 [place]-3 Fatty Acids [[place]-3] 1,000 mg PO DAILY 04/21/19 04/21/19 Pregabalin [Lyrica] 75 mg PO BID 04/21/19 04/21/19 QUEtiapine [SEROquel] 100 mg PO HS 04/21/19 04/21/19 hydrALAZINE HCL [Apresoline] 50 mg PO BID 04/21/19 04/21/19 Previous Rx's Medication Instructions Recorded Multivitamins, Thera [Multivitamin 1 tab PO DAILY #1 tablet 10/17/16 (formulary)] amLODIPine [Norvasc] 10 mg PO DAILY #0 tab 10/17/16 Allergies Allergy/AdvReac Type Severity Reaction Status Date / Time Iodinated Contrast Media Allergy Unknown Verified 04/21/19 15:53 [Iodinated Contrast Media - Oral and] donepezil [From Aricept] AdvReac psychiatric Verified 04/21/19 15:53 Review of Systems ROS Statement: Those systems with pertinent positive or pertinent negative responses have been documented in the HPI. Review of Systems Constitutional: Denies fever, chills Eyes: Denies change in vision, Denies pain Ears, nose, mouth, throat: Denies headaches, Denies sore throat Cardiovascular: Denies chest pain. Denies palpitations Respiratory: Denies shortness of breath, Denies cough Gastrointestinal: Denies abdominal pain. Denies nausea, vomiting, diarrhea. Genitourinary: Denies hematuria, Denies infections Musculoskeletal: Denies pain, Denies swelling Integumentary: Denies rash Neurological: Denies headache, focal weakness, focal numbness. Positive altered mental status and gait instability. Psychiatric: Denies anxiety, Denies depression Hematologic/Lymphatic: Denies easy bleeding or bruising ROS Other: All systems not noted in ROS Statement are negative. Past Medical History Past Medical History: COPD, Dementia, Diabetes Mellitus, Deep Vein Thrombosis (DVT), Hyperlipidemia, Hypertension, Memory Impairment, Osteoarthritis (OA), Prostate Disorder, Sleep Apnea/CPAP/BIPAP Additional Past Medical History / Comment(s): DVT AFTER KNEE SX,ENLARGED PROSTATE, EARLY DEMENTIA," SHORT TERM MEMORY PROBLEMS", PAST FALL HIT HEAD", PER PAST ADMIT FOR ACUTE KIDNEY FAILURE-SEES A KIDNEY DR. SINUS/SEASONAL ALLERGY, GOUT, SLEEP APNEA BUT ABLE TO USE CPAP/MASK DOES'NT FIT. pt stated lost 80# over 7 months. History of Any Multi-Drug Resistant Organisms: None Reported Past Surgical History: Hernia Repair, Joint Replacement, Orthopedic Surgery Additional Past Surgical History / Comment(s): nasal, bilateral knee REPLACMENTS, CARIDAD HIP REPLACEMENTS, RT CARPAL TUNNEL,CARIDAD INGUINAL HERNIA REPAIRS, left shoulder repair Past Anesthesia/Blood Transfusion Reactions: No Reported Reaction Past Psychological History: Anxiety, Depression Smoking Status: Former smoker Past Alcohol Use History: None Reported Past Drug Use History: None Reported - Past Family History Father Family Medical History: Diabetes Mellitus, Myocardial Infarction ([place]) Additional Family Medical History / Comment(s): AT AGE 62 FROM [place] Mother Family Medical History: Diabetes Mellitus Additional Family Medical History / Comment(s): IN HER 40'S General Exam - General Exam Comments Initial Comments: General: Awake, alert, No acute Distress HENT: Normocephalic. Atraumatic Eyes: PERRL. EOMI. No scleral icterus. No injected conjunctiva Neck: Full ROM Chest/Lungs: Clear to auscultation bilaterally. No wheezing, rhonchi, or rales Cardiac: Regular rate, irregular rhythm . No murmurs or rubs Abdomen/GI: Soft, nontender, nondistended. No rebound, guarding, or rigidity. Musculoskeletal: Full ROM Skin: Warm, dry, intact Neurologic: A/Ox2 (not oriented to time) , no weakness, no sensory deficit. Limitations: no limitations Course Vital Signs 04/21/19 04/21/19 04/21/19 14:53 16:29 18:17 Temperature 98.2 F 98.1 F Pulse Rate 59 L 54 L 54 L Respiratory 16 18 18 Rate Blood Pressure 143/75 135/67 125/69 O2 Sat by Pulse 95 95 95 Oximetry 04/21/19 19:36 Temperature 99.2 F Pulse Rate 52 L Respiratory 18 Rate Blood Pressure 128/68 O2 Sat by Pulse 95 Oximetry Medical Decision Making - Medical Decision Making 73 yoM presenting with altered mental status. On initial exam the patient is A/Ox2. EKG shows atrial flutter at a rate of 57 bpm. Patient has no history of a flutter. He is anticoagulated on xarelto. His lower extremity dopplers were neg ative. His laboratory workup was negative. His CT showed possible NPH, which would correlate with the patient's symptoms. I discussed this with the family who are agreeable to transfer to [facility] for neurosurgery evaluation. The patient's is requesting that they self transfer. I spoke with Pipe Espinosa who is agreeable to transfer. - Lab Data Result diagrams: 04/21/19 15:52 04/21/19 15:52 Lab Results 04/21/19 04/21/19 04/21/19 Range/Units 15:52 15:52 15:52 WBC 7.4 (3.8-10.6) k/uL RBC 4.51 (4.30-5.90) m/uL Hgb 13.6 (13.0-17.5) gm/dL Hct 40.8 (39.0-53.0) % MCV 90.5 (80.0-100.0) fL MCH 30.1 (25.0-35.0) pg MCHC 33.3 (31.0-37.0) g/dL RDW 15.0 (11.5-15.5) % Plt Count 171 (150-450) k/uL Neutrophils % 66 % Lymphocytes % 23 % Monocytes % 6 % Eosinophils % 2 % Basophils % 1 % Neutrophils # 4.9 (1.3-7.7) k/uL Lymphocytes # 1.7 (1.0-4.8) k/uL Monocytes # 0.5 (0-1.0) k/uL Eosinophils # 0.1 (0-0.7) k/uL Basophils # 0.1 (0-0.2) k/uL D-Dimer 1.06 H (<0.60) mg/L FEU VBG pH (7.31-7.41) VBG pCO2 (37-51) mmHg VBG HCO3 (24-28) mmol/L Sodium 138 (137-145) mmol/L Potassium 3.7 (3.5-5.1) mmol/L Chloride 98 (98-107) mmol/L Carbon Dioxide 27 (22-30) mmol/L Anion Gap 13 mmol/L BUN 20 (9-20) mg/dL Creatinine 1.24 (0.66-1.25) mg/dL Est GFR (CKD-EPI)AfAm 66 (>60 ml/min/1.73 sqM) Est GFR (CKD-EPI)NonAf 57 (>60 ml/min/1.73 sqM) Glucose 159 H (74-99) mg/dL Calcium 9.3 (8.4-10.2) mg/dL Total Bilirubin 0.8 (0.2-1.3) mg/dL Conjugated Bilirubin 0.0 (0.0-0.3) mg/dL Unconjugated Bilirubin 0.6 (0.0-1.1) mg/dL Delta Bilirubin 0.2 (0.0-0.2) mg/dL AST 25 (17-59) U/L ALT 16 L (21-72) U/L Alkaline Phosphatase 78 (38-126) U/L Ammonia (<30) umol/L Troponin I (0.000-0.034) ng/mL NT-Pro-B Natriuret Pep pg/mL Total Protein 6.6 (6.3-8.2) g/dL Albumin 3.8 (3.5-5.0) g/dL Lipase 81 (23-300) U/L Urine Color Urine Appearance (Clear) Urine pH (5.0-8.0) Ur Specific [place] (1.001-1.035) Urine Protein (Negative) Urine Glucose (UA) (Negative) Urine Ketones (Negative) Urine Blood (Negative) Urine Nitrite (Negative) Urine Bilirubin (Negative) Urine Urobilinogen (<2.0) mg/dL Ur Leukocyte Esterase (Negative) Valproic Acid 77.5 ug/mL 04/21/19 04/21/19 04/21/19 Range/Units 15:52 15:52 15:52 WBC (3.8-10.6) k/uL RBC (4.30-5.90) m/uL Hgb (13.0-17.5) gm/dL Hct (39.0-53.0) % MCV (80.0-100.0) fL MCH (25.0-35.0) pg MCHC (31.0-37.0) g/dL RDW (11.5-15.5) % Plt Count (150-450) k/uL Neutrophils % % Lymphocytes % % Monocytes % % Eosinophils % % Basophils % % Neutrophils # (1.3-7.7) k/uL Lymphocytes # (1.0-4.8) k/uL Monocytes # (0-1.0) k/uL Eosinophils # (0-0.7) k/uL Basophils # (0-0.2) k/uL D-Dimer (<0.60) mg/L FEU VBG pH 7.44 H (7.31-7.41) VBG pCO2 43 (37-51) mmHg VBG HCO3 29 H (24-28) mmol/L Sodium (137-145) mmol/L Potassium (3.5-5.1) mmol/L Chloride (98-107) mmol/L Carbon Dioxide (22-30) mmol/L Anion Gap mmol/L BUN (9-20) mg/dL Creatinine (0.66-1.25) mg/dL Est GFR (CKD-EPI)AfAm (>60 ml/min/1.73 sqM) Est GFR (CKD-EPI)NonAf (>60 ml/min/1.73 sqM) Glucose (74-99) mg/dL Calcium (8.4-10.2) mg/dL Total Bilirubin (0.2-1.3) mg/dL Conjugated Bilirubin (0.0-0.3) mg/dL Unconjugated Bilirubin (0.0-1.1) mg/dL Delta Bilirubin (0.0-0.2) mg/dL AST (17-59) U/L ALT (21-72) U/L Alkaline Phosphatase (38-126) U/L Ammonia (<30) umol/L Troponin I <0.012 (0.000-0.034) ng/mL NT-Pro-B Natriuret Pep 103 pg/mL Total Protein (6.3-8.2) g/dL Albumin (3.5-5.0) g/dL Lipase (23-300) U/L Urine Color Urine Appearance (Clear) Urine pH (5.0-8.0) Ur Specific [place] (1.001-1.035) Urine Protein (Negative) Urine Glucose (UA) (Negative) Urine Ketones (Negative) Urine Blood (Negative) Urine Nitrite (Negative) Urine Bilirubin (Negative) Urine Urobilinogen (<2.0) mg/dL Ur Leukocyte Esterase (Negative) Valproic Acid ug/mL 04/21/19 04/21/19 Range/Units 15:52 17:10 WBC (3.8-10.6) k/uL RBC (4.30-5.90) m/uL Hgb (13.0-17.5) gm/dL Hct (39.0-53.0) % MCV (80.0-100.0) fL MCH (25.0-35.0) pg MCHC (31.0-37.0) g/dL RDW (11.5-15.5) % Plt Count (150-450) k/uL Neutrophils % % Lymphocytes % % Monocytes % % Eosinophils % % Basophils % % Neutrophils # (1.3-7.7) k/uL Lymphocytes # (1.0-4.8) k/uL Monocytes # (0-1.0) k/uL Eosinophils # (0-0.7) k/uL Basophils # (0-0.2) k/uL D-Dimer (<0.60) mg/L FEU VBG pH (7.31-7.41) VBG pCO2 (37-51) mmHg VBG HCO3 (24-28) mmol/L Sodium (137-145) mmol/L Potassium (3.5-5.1) mmol/L Chloride (98-107) mmol/L Carbon Dioxide (22-30) mmol/L Anion Gap mmol/L BUN (9-20) mg/dL Creatinine (0.66-1.25) mg/dL Est GFR (CKD-EPI)AfAm (>60 ml/min/1.73 sqM) Est GFR (CKD-EPI)NonAf (>60 ml/min/1.73 sqM) Glucose (74-99) mg/dL Calcium (8.4-10.2) mg/dL Total Bilirubin (0.2-1.3) mg/dL Conjugated Bilirubin (0.0-0.3) mg/dL Unconjugated Bilirubin (0.0-1.1) mg/dL Delta Bilirubin (0.0-0.2) mg/dL AST (17-59) U/L ALT (21-72) U/L Alkaline Phosphatase (38-126) U/L Ammonia 25 (<30) umol/L Troponin I (0.000-0.034) ng/mL NT-Pro-B Natriuret Pep pg/mL Total Protein (6.3-8.2) g/dL Albumin (3.5-5.0) g/dL Lipase (23-300) U/L Urine Color Yellow Urine Appearance Clear (Clear) Urine pH 6.0 (5.0-8.0) Ur Specific [place] 1.025 (1.001-1.035) Urine Protein Negative (Negative) Urine Glucose (UA) 4+ H (Negative) Urine Ketones Negative (Negative) Urine Blood Negative (Negative) Urine Nitrite Negative (Negative) Urine Bilirubin Negative (Negative) Urine Urobilinogen 2.0 (<2.0) mg/dL Ur Leukocyte Esterase Negative (Negative) Valproic Acid ug/mL Disposition Clinical Impression: NPH (normal pressure hydrocephalus), Atrial flutter, Altered mental status Disposition: OTHER INSTITUTION NOT DEFINED Additional Instructions: Please go directly to [facility] Emergency Department Referrals: Alessandro Lyon MD [Primary Care Provider] - 1-2 days - Out of Hospital Transfer - Req. Specs Out of Hospital Transfer - Requested Specifics: Other Emergency Center ([facility])
[2019-04-21 19:39] VITALS: BP 128/68; PULSE 52; TEMP 99.2
== END 2019-04-21 19:56 | disposition other institution (70) ==
LOC: EC 14:51
DX: G91.2 (Idiopathic) normal pressure hydrocephalus (principal); I48.92 Unspecified atrial flutter; R41.82 Altered mental status, unspecified; M10.9 Gout, unspecified; M79.89 Other specified soft tissue disorders; F41.9 Anxiety disorder, unspecified; F32.9 Major depressive disorder, single episode, unspecified; E11.9 Type 2 diabetes mellitus without complications; E78.5 Hyperlipidemia, unspecified; I10 Essential (primary) hypertension; M19.90 Unspecified osteoarthritis, unspecified site; N40.0 Benign prostatic hyperplasia without lower urinary tract symptoms; G47.30 Sleep apnea, unspecified; F03.90 Unspecified dementia, unspecified severity, without behavioral disturbance, psychotic disturbance, mood disturbance, and anxiety; Z79.01 Long term (current) use of anticoagulants; Z79.82 Long term (current) use of aspirin; Z79.899 Other long term (current) drug therapy; Z91.041 Radiographic dye allergy status; Z88.8 Allergy status to other drugs, medicaments and biological substances; Z99.89 Dependence on other enabling machines and devices; Z96.653 Presence of artificial knee joint, bilateral; Z96.643 Presence of artificial hip joint, bilateral; Z86.718 Personal history of other venous thrombosis and embolism; Z82.49 Family history of ischemic heart disease and other diseases of the circulatory system; Z87.891 Personal history of nicotine dependence
CPT/HCPCS: 36415; 70450; 71046; 80048; 80076; 80164; 81003; 82140; 82803; 83690; 83880; 84484; 85025; 85379; 93005; 93970; 99285

== ENCOUNTER 2020-01-13 11:07 | Emergency (ER) | payer MEDICARE ==
[2020-01-13 11:14] VITALS: RESP 18; TEMP 98.1
[2020-01-13] MEDS ORDERED: SODIUM CHLORIDE 0.9% 500 ML 500 ML IV ONE (11:29)
--- NOTE | 2020-01-13 11:32 | ED ---
General Adult HPI - General Chief complaint: Altered Mental Status Stated complaint: mental status changes Time Seen by Provider: 01/13/20 11:10 Source: patient, family, RN notes reviewed, old records reviewed Mode of arrival: wheelchair Limitations: altered mental status - History of Present Illness Initial comments: This a 74-year-old male who presents emergency Department with a past medical history of diabetes blood clots dementia is some sort of psychiatric history that the is unable to articulate. Patient does take Depakote and Seroquel for however states over the last 2 days she did not take any of his medications including his blood pressure medications. Patient has not taken Seroquel or Depakote over the last couple of days. states she started noticing altered mental status that is been intermittent in nature over the last day. Patient didn't remember the name of his daughter today and the was unable to get him to cooperate so she decided to bring to the emergency department. states this has happened in the past. Patient himself denies any pain patient denies wanting to be here. Patient states she just wanted to try a few days without medications to see how we would do. - Related Data Home Medications Medication Instructions Recorded Confirmed Divalproex ER [Depakote ER] 1,000 mg PO HS 08/15/16 01/13/20 Mirabegron [Myrbetriq] 50 mg PO HS 08/15/16 01/13/20 Atorvastatin [Lipitor] 20 mg PO HS 09/01/16 01/13/20 Aspirin 81 mg PO DAILY 10/13/16 01/13/20 Rivaroxaban [Xarelto] 20 mg PO DAILY@1700 10/13/16 01/13/20 Hydrochlorothiazide [Hydrodiuril] 25 mg PO DAILY 04/21/19 01/13/20 Pregabalin [Lyrica] 75 mg PO BID 04/21/19 01/13/20 QUEtiapine [SEROquel] 150 mg PO HS 04/21/19 01/13/20 Canagliflozin [Invokana] 300 mg PO DAILY 01/13/20 01/13/20 Previous Rx's Medication Instructions Recorded Multivitamins, Thera [Multivitamin 1 tab PO DAILY #1 tablet 10/17/16 (formulary)] amLODIPine [Norvasc] 10 mg PO DAILY #0 tab 10/17/16 Allergies Allergy/AdvReac Type Severity Reaction Status Date / Time Iodinated Contrast Media Allergy Unknown Verified 01/13/20 12:11 [Iodinated Contrast Media - Oral and] donepezil [From Aricept] AdvReac psychiatric Verified 01/13/20 12:11 Review of Systems ROS Statement: Those systems with pertinent positive or pertinent negative responses have been documented in the HPI. ROS Other: All systems not noted in ROS Statement are negative. Past Medical History Past Medical History: COPD, Dementia, Diabetes Mellitus, Deep Vein Thrombosis (DVT), Hyperlipidemia, Hypertension, Memory Impairment, Osteoarthritis (OA), Pr ostate Disorder, Sleep Apnea/CPAP/BIPAP Additional Past Medical History / Comment(s): DVT AFTER KNEE SX,ENLARGED PROSTATE, EARLY DEMENTIA," SHORT TERM MEMORY PROBLEMS", PAST FALL HIT HEAD", PER PAST ADMIT FOR ACUTE KIDNEY FAILURE-SEES A KIDNEY DR. SINUS/SEASONAL ALLERGY, GOUT, SLEEP APNEA BUT ABLE TO USE CPAP/MASK DOES'NT FIT. pt stated lost 80# over 7 months. History of Any Multi-Drug Resistant Organisms: None Reported Past Surgical History: Hernia Repair, Joint Replacement, Orthopedic Surgery Additional Past Surgical History / Comment(s): nasal, bilateral knee REPLACMENTS, CARIDAD HIP REPLACEMENTS, RT CARPAL TUNNEL,CARIDAD INGUINAL HERNIA REPAIRS, left shoulder repair Past Anesthesia/Blood Transfusion Reactions: No Reported Reaction Past Psychological History: Anxiety, Depression Smoking Status: Former smoker Past Alcohol Use History: None Reported Past Drug Use History: None Reported - Past Family History Father Family Medical History: Diabetes Mellitus, Myocardial Infarction ([place]) Additional Family Medical History / Comment(s): AT AGE 62 FROM [place] Mother Family Medical History: Diabetes Mellitus Additional Family Medical History / Comment(s): IN HER 40'S General Exam - General Exam Comments Initial Comments: GENERAL: Patient is well-developed and well-nourished. Patient is nontoxic and well- hydrated and is in no acute distress. ENT: Neck is soft and supple. No significant lymphadenopathy is noted. Oropharynx is clear. Moist mucous membranes. Neck has full range of motion without eliciting any pain. EYES: The sclera were anicteric and conjunctiva were pink and moist. Extraocular movements were intact and pupils were equal round and reactive to light. Eyelids were unremarkable. PULMONARY: Unlabored respirations. Good breath sounds bilaterally. No audible rales rhonchi or wheezing was noted. CARDIOVASCULAR: There is a regular rate and rhythm without any murmurs gallops or rubs. ABDOMEN: Soft and nontender with normal bowel sounds. SKIN: Skin is clear with no lesions or rashes and otherwise unremarkable. NEUROLOGIC: Patient is alert and oriented 2. Cranial nerves II through XII are grossly intact. Motor and sensory are also intact. Normal speech, volume and content. Symmetrical smile. MUSCULOSKELETAL: Normal extremities with adequate strength and full range of motion. No lower extremity swelling or edema. No calf tenderness. LYMPHATICS: No significant lymphadenopathy is noted PSYCHIATRIC: Patient denies being depressed patient denies being suicidal. Limitations: altered mental status Course Vital Signs 01/13/20 01/13/20 01/13/20 11:10 11:14 12:14 Temperature 98.1 F Pulse Rate 51 L Respiratory 18 18 18 Rate Blood Pressure 142/68 O2 Sat by Pulse 94 L Oximetry 01/13/20 13:00 Temperature Pulse Rate 50 L Respiratory 18 Rate Blood Pressure 125/80 O2 Sat by Pulse 96 Oximetry Medical Decision Making - Medical Decision Making EKG shows atrial flutter at a rate of 51 bpm QRS is 92 QT interval 48 QTC is 449. Patient's EKG shows no ST segment elevation or depression. I had patient evaluated by EPS they decided the patient needed to be admitted refused to have the patient admitted to the psychiatric unit want to take the patient home. I gave the patient Seroquel and the patient will be discharged home in the 's care - Lab Data Result diagrams: 01/13/20 11:40 01/13/20 11:40 Lab Results 01/13/20 01/13/20 01/13/20 Range/Units 11:40 11:40 11:40 WBC 8.0 (3.8-10.6) k/uL RBC 5.09 (4.30-5.90) m/uL Hgb 15.4 (13.0-17.5) gm/dL Hct 45.2 (39.0-53.0) % MCV 88.9 (80.0-100.0) fL MCH 30.2 (25.0-35.0) pg MCHC 34.0 (31.0-37.0) g/dL RDW 14.1 (11.5-15.5) % Plt Count 200 (150-450) k/uL Neutrophils % 66 % Lymphocytes % 25 % Monocytes % 6 % Eosinophils % 2 % Basophils % 1 % Neutrophils # 5.3 (1.3-7.7) k/uL Lymphocytes # 2.0 (1.0-4.8) k/uL Monocytes # 0.5 (0-1.0) k/uL Eosinophils # 0.1 (0-0.7) k/uL Basophils # 0.1 (0-0.2) k/uL PT 10.1 (9.0-12.0) sec INR 1.0 (<1.2) APTT 24.9 (22.0-30.0) sec Sodium 139 (137-145) mmol/L Potassium 3.9 (3.5-5.1) mmol/L Chloride 105 (98-107) mmol/L Carbon Dioxide 24 (22-30) mmol/L Anion Gap 10 mmol/L BUN 20 (9-20) mg/dL Creatinine 1.03 (0.66-1.25) mg/dL Est GFR (CKD-EPI)AfAm 82 (>60 ml/min/1.73 sqM) Est GFR (CKD-EPI)NonAf 71 (>60 ml/min/1.73 sqM) Glucose 110 H (74-99) mg/dL POC Glucose (mg/dL) (75-99) mg/dL POC Glu Grinder ID Calcium 9.2 (8.4-10.2) mg/dL Total Bilirubin 1.6 H (0.2-1.3) mg/dL AST 26 (17-59) U/L ALT 15 (4-49) U/L Alkaline Phosphatase 90 (38-126) U/L Troponin I (0.000-0.034) ng/mL Total Protein 6.9 (6.3-8.2) g/dL Albumin 4.1 (3.5-5.0) g/dL Urine Color Urine Appearance (Clear) Urine pH (5.0-8.0) Ur Specific [place] (1.001-1.035) Urine Protein (Negative) Urine Glucose (UA) (Negative) Urine Ketones (Negative) Urine Blood (Negative) Urine Nitrite (Negative) Urine Bilirubin (Negative) Urine Urobilinogen (<2.0) mg/dL Ur Leukocyte Esterase (Negative) Urine Opiates Screen (NotDetected) Ur Oxycodone Screen (NotDetected) Urine Methadone Screen (NotDetected) Ur Propoxyphene Screen (NotDetected) Ur Barbiturates Screen (NotDetected) Valproic Acid 22.4 ug/mL U Tricyclic Antidepress (NotDetected) Ur Phencyclidine Scrn (NotDetected) Ur Amphetamines Screen (NotDetected) U Methamphetamines Scrn (NotDetected) U Benzodiazepines Scrn (NotDetected) Urine Cocaine Screen (NotDetected) U Marijuana (THC) Screen (NotDetected) 01/13/20 01/13/20 01/13/20 Range/Units 11:40 11:47 12:59 WBC (3.8-10.6) k/uL RBC (4.30-5.90) m/uL Hgb (13.0-17.5) gm/dL Hct (39.0-53.0) % MCV (80.0-100.0) fL MCH (25.0-35.0) pg MCHC (31.0-37.0) g/dL RDW (11.5-15.5) % Plt Count (150-450) k/uL Neutrophils % % Lymphocytes % % Monocytes % % Eosinophils % % Basophils % % Neutrophils # (1.3-7.7) k/uL Lymphocytes # (1.0-4.8) k/uL Monocytes # (0-1.0) k/uL Eosinophils # (0-0.7) k/uL Basophils # (0-0.2) k/uL PT (9.0-12.0) sec INR (<1.2) APTT (22.0-30.0) sec Sodium (137-145) mmol/L Potassium (3.5-5.1) mmol/L Chloride (98-107) mmol/L Carbon Dioxide (22-30) mmol/L Anion Gap mmol/L BUN (9-20) mg/dL Creatinine (0.66-1.25) mg/dL Est GFR (CKD-EPI)AfAm (>60 ml/min/1.73 sqM) Est GFR (CKD-EPI)NonAf (>60 ml/min/1.73 sqM) Glucose (74-99) mg/dL POC Glucose (mg/dL) 144 H (75-99) mg/dL POC Glu Grinder ID Jagdish Cortez Calcium (8.4-10.2) mg/dL Total Bilirubin (0.2-1.3) mg/dL AST (17-59) U/L ALT (4-49) U/L Alkaline Phosphatase (38-126) U/L Troponin I <0.012 (0.000-0.034) ng/mL Total Protein (6.3-8.2) g/dL Albumin (3.5-5.0) g/dL Urine Color Yellow Urine Appearance Clear (Clear) Urine pH 8.0 (5.0-8.0) Ur Specific [place] 1.026 (1.001-1.035) Urine Protein Trace H (Negative) Urine Glucose (UA) 4+ H (Negative) Urine Ketones Trace H (Negative) Urine Blood Negative (Negative) Urine Nitrite Negative (Negative) Urine Bilirubin Negative (Negative) Urine Urobilinogen 2.0 (<2.0) mg/dL Ur Leukocyte Esterase Negative (Negative) Urine Opiates Screen Not Detected (NotDetected) Ur Oxycodone Screen Not Detected (NotDetected) Urine Methadone Screen Not Detected (NotDetected) Ur Propoxyphene Screen Not Detected (NotDetected) Ur Barbiturates Screen Not Detected (NotDetected) Valproic Acid ug/mL U Tricyclic Antidepress Not Detected (NotDetected) Ur Phencyclidine Scrn Not Detected (NotDetected) Ur Amphetamines Screen Not Detected (NotDetected) U Methamphetamines Scrn Not Detected (NotDetected) U Benzodiazepines Scrn Not Detected (NotDetected) Urine Cocaine Screen Not Detected (NotDetected) U Marijuana (THC) Screen Not Detected (NotDetected) Disposition Clinical Impression: Noncompliance with medications, Altered mental status Disposition: HOME SELF-CARE Instructions (If sedation given, give patient instructions): Altered Mental Status (ED) Is patient prescribed a controlled substance at d/c from ED?: No Referrals: Alessandro Lyon MD [Primary Care Provider] - 1-2 days Time of Disposition: 15:00
[2020-01-13 11:49] LABS: Glucose,Whole Blood 144 mg/dL (75-99)
[2020-01-13 11:55] LABS: Basophils # (A) 0.1 k/uL (0-0.2); Basophils % (A) 1 %; Eosinophils # (A) 0.1 k/uL (0-0.7); Eosinophils % (A) 2 %; HCT 45.2 % (39.0-53.0); HGB 15.4 gm/dL (13.0-17.5); Lymphocytes % (A) 25 %; MCH 30.2 pg (25.0-35.0); MCV 88.9 fL (80.0-100.0); Mean Platelet Volume 7.2; Monocytes # (A) 0.5 k/uL (0-1.0); Monocytes % (A) 6 %; Neutrophils # (A) 5.3 k/uL (1.3-7.7); Neutrophils % (A) 66 %; Platelet Count 200 k/uL (150-450); RBC 5.09 m/uL (4.30-5.90); RDW 14.1 % (11.5-15.5)
[2020-01-13 12:03] LABS: Albumin 4.1 g/dL (3.5-5.0); Calcium 9.2 mg/dL (8.4-10.2); Potassium 3.9 mmol/L (3.5-5.1); Total Bilirubin 1.6 mg/dL (0.2-1.3); Total Protein 6.9 g/dL (6.3-8.2)
[2020-01-13 12:10] LABS: Partial Thromboplastin Time 24.9 sec (22.0-30.0); Prothrombin Time 10.1 sec (9.0-12.0)
--- NOTE | 2020-01-13 12:18 | CT ---
EXAMINATION TYPE: CT brain wo con DATE OF EXAM: 01/13/2020 COMPARISON: 04/21/2019 HISTORY: 74-year-old male confusion, altered mental status TECHNIQUE: Examination was done in axial plane without intravenous contrast. Coronal and sagittal r econstructions performed. CT DLP: 1154.4 mGycm Automated exposure control for dose reduction was used. FINDINGS: There is no evidence of acute intracranial hemorrhage, acute ischemic changes, mass, mass-effect, or extra-axial fluid collection. There is no effacement of cerebral sulci or basal subarachnoid cister ns. Mild hydrocephalus with Gunner's ratio calculated at 0.37 versus 0.36, previously. There is no midl ine shift. Marc-white matter distinction is preserved. Moderate generalized supratentorial volume loss. Moderate patchy periventricular white matter hypoden sities. Paranasal sinuses and mastoid air cells well pneumatized. Orbits and globes are intact. IMPRESSION: Persistent mild hydrocephalus, Gunner's ratio calculated at 0.37 versus 0.36 on 04/21/2019. This may be secondary to ex vacuo dilatation from central cerebral atrophy. Correlate to exclude NPH. Moderate patchy changes of chronic small vessel ischemic disease. Otherwise, no acute intracranial iymi dy seen.
[2020-01-13 12:35] LABS: Valproic Acid (Depakene) 22.4 ug/mL
--- NOTE | 2020-01-13 12:35 | XR ---
EXAMINATION TYPE: XR chest 2V DATE OF EXAM: 01/13/2020 COMPARISON: 04/21/2019 TECHNIQUE: PA and lateral views submitted. HISTORY: Altered mental status FINDINGS: The lungs are clear and there is no pneumothorax, pleural effusion, or focal pneumonia. Arthropathy of the shoulders. Postsurgical change left shoulder. Coarsened interstitium. No consolidation. No pl eural effusion. Hypertrophic and degenerative change of the spine. IMPRESSION: 1. Slightly coarsened interstitium could be seen with interstitial pneumonitis correlate clinically.
[2020-01-13 13:41] LABS: Appearance,Urine Clear (Clear); Bilirubin,Urine Negative (Negative); Blood,Urine Negative (Negative); Color,Urine Yellow; Glucose,Urine (UA) 4+ (Negative); Ketones,Urine Trace (Negative); Leukocyte Esterase,Urine Negative (Negative); Nitrite,Urine Negative (Negative); Protein,Urine Trace (Negative); Specific Gravity,Urine 1.026 (1.001-1.035)
[2020-01-13 13:48] LABS: Amphetamine Screen,Urine Not Detected (NotDetected); Benzodiazepines Screen,Urine Not Detected (NotDetected); Cocaine Screen,Urine Not Detected (NotDetected); Methadone Screen, Urine Not Detected (NotDetected); Opiate Screen,Urine Not Detected (NotDetected); Phencyclidine Screen,Urine Not Detected (NotDetected); Tricyclic Antidepressant,Urine Not Detected (NotDetected); Urn Cannabinoid Scrn Not Detected (NotDetected)
[2020-01-13 13:49] LABS: Barbiturate Screen,Urine Not Detected (NotDetected); Oxycodone Screen, Urine Not Detected (NotDetected)
[2020-01-13] MEDS ORDERED: QUEtiapine 50 MG TAB PO STA (14:58)
[2020-01-13] MEDS ORDERED: QUEtiapine 100 MG TAB PO STA (14:58)
[2020-01-13 15:51] VITALS: BP 130/71; PULSE 52
== END 2020-01-13 15:51 | disposition home or self-care (01) ==
LOC: EC 11:07
DX: R41.82 Altered mental status, unspecified (principal); Z91.14 Patient's other noncompliance with medication regimen; I48.92 Unspecified atrial flutter; F41.9 Anxiety disorder, unspecified; F32.9 Major depressive disorder, single episode, unspecified; E11.9 Type 2 diabetes mellitus without complications; E78.5 Hyperlipidemia, unspecified; F03.90 Unspecified dementia, unspecified severity, without behavioral disturbance, psychotic disturbance, mood disturbance, and anxiety; I10 Essential (primary) hypertension; M19.90 Unspecified osteoarthritis, unspecified site; N40.0 Benign prostatic hyperplasia without lower urinary tract symptoms; Z79.82 Long term (current) use of aspirin; Z79.84 Long term (current) use of oral hypoglycemic drugs; Z79.899 Other long term (current) drug therapy; Z87.891 Personal history of nicotine dependence; Z91.041 Radiographic dye allergy status; Z88.8 Allergy status to other drugs, medicaments and biological substances; Z82.49 Family history of ischemic heart disease and other diseases of the circulatory system; Z86.718 Personal history of other venous thrombosis and embolism; Z96.653 Presence of artificial knee joint, bilateral; Z96.643 Presence of artificial hip joint, bilateral
CPT/HCPCS: 36415; 70450; 71046; 80053; 80164; 80306; 81003; 84484; 85025; 85610; 85730; 99285

== ENCOUNTER 2020-01-16 15:11 | Emergency (ER) | payer MEDICARE ==
[2020-01-16 15:20] VITALS: BP 135/68; PULSE 65; RESP 18; TEMP 98.8
[2020-01-16 16:10] LABS: Basophils # (A) 0.1 k/uL (0-0.2); Basophils % (A) 1 %; Eosinophils # (A) 0.2 k/uL (0-0.7); Eosinophils % (A) 2 %; HCT 49.4 % (39.0-53.0); HGB 16.1 gm/dL (13.0-17.5); Lymphocytes # (A) 2.1 k/uL (1.0-4.8); Lymphocytes % (A) 27 %; MCH 29.1 pg (25.0-35.0); MCHC 32.5 g/dL (31.0-37.0); MCV 89.5 fL (80.0-100.0); Monocytes # (A) 0.4 k/uL (0-1.0); Monocytes % (A) 5 %; Neutrophils # (A) 4.9 k/uL (1.3-7.7); Neutrophils % (A) 64 %; Platelet Count 209 k/uL (150-450); RBC 5.52 m/uL (4.30-5.90); RDW 14.4 % (11.5-15.5); WBC 7.7 k/uL (3.8-10.6)
[2020-01-16 16:19] LABS: Acetaminophen <10.0 ug/mL; African American GFR (CKD) 69 (>60 ml/min/1.73 sqM); Alcohol <10 mg/dL; Anion Gap 12 mmol/L; Blood Urea Nitrogen 19 mg/dL (9-20); Calcium 9.8 mg/dL (8.4-10.2); Carbon Dioxide 22 mmol/L (22-30); Chloride 104 mmol/L (98-107); Glucose 210 mg/dL (74-99); Non-African American GFR(CKD) 60 (>60 ml/min/1.73 sqM); Salicylate <1.0 mg/dL; Sodium 138 mmol/L (137-145)
--- NOTE | 2020-01-16 16:34 | ED ---
Psych HPI - General Chief Complaint: Psychiatric Symptoms Stated Complaint: Mental Health Time Seen by Provider: 01/16/20 15:22 Source: patient, family Mode of arrival: wheelchair - History of Present Illness Initial Comments: Is a 74-year-old male DF for evaluation of altered mental status recent bleeding in the ER for evaluation of same. Patient presented today for evaluation regarding mental health. MD Complaint: altered mental status -: days(s) Associated Psychiatric Symptoms: delusions History of same: Yes Quality: constant Improves With: none Associated Symptoms: denies other symptoms Treatments Prior to Arrival: placed on mental health hold - Related Data Home Medications Medication Instructions Recorded Confirmed Divalproex ER [Depakote ER] 1,000 mg PO HS 08/15/16 01/13/20 Mirabegron [Myrbetriq] 50 mg PO HS 08/15/16 01/13/20 Atorvastatin [Lipitor] 20 mg PO HS 09/01/16 01/13/20 Aspirin 81 mg PO DAILY 10/13/16 01/13/20 Rivaroxaban [Xarelto] 20 mg PO DAILY@1700 10/13/16 01/13/20 Hydrochlorothiazide [Hydrodiuril] 25 mg PO DAILY 04/21/19 01/13/20 Pregabalin [Lyrica] 75 mg PO BID 04/21/19 01/13/20 QUEtiapine [SEROquel] 150 mg PO HS 04/21/19 01/13/20 Canagliflozin [Invokana] 300 mg PO DAILY 01/13/20 01/13/20 Previous Rx's Medication Instructions Recorded Multivitamins, Thera [Multivitamin 1 tab PO DAILY #1 tablet 10/17/16 (formulary)] amLODIPine [Norvasc] 10 mg PO DAILY #0 tab 10/17/16 Allergies Allergy/AdvReac Type Severity Reaction Status Date / Time Iodinated Contrast Media Allergy Unknown Verified 01/16/20 15:20 [Iodinated Contrast Media - Oral and] donepezil [From Aricept] AdvReac psychiatric Verified 01/16/20 15:20 Review of Systems ROS Statement: Those systems with pertinent positive or pertinent negative responses have been documented in the HPI. ROS Other: All systems not noted in ROS Statement are negative. Past Medical History Past Medical History: COPD, Dementia, Diabetes Mellitus, Deep Vein Thrombosis (DVT), Hyperlipidemia, Hypertension, Memory Impairment, Osteoarthritis (OA), Prostate Disorder, Sleep Apnea/CPAP/BIPAP Additional Past Medical History / Comment(s): DVT AFTER KNEE SX,ENLARGED PROSTATE, EARLY DEMENTIA," SHORT TERM MEMORY PROBLEMS", PAST FALL HIT HEAD", PER PAST ADMIT FOR ACUTE KIDNEY FAILURE-SEES A KIDNEY . SINUS/SEASONAL ALLER GY, GOUT, SLEEP APNEA BUT ABLE TO USE CPAP/MASK DOES'NT FIT. History of Any Multi-Drug Resistant Organisms: None Reported Past Surgical History: Hernia Repair, Joint Replacement, Orthopedic Surgery Additional Past Surgical History / Comment(s): nasal, bilateral knee REPLACMENTS, CARIDAD HIP REPLACEMENTS, RT CARPAL TUNNEL,CARIDAD INGUINAL HERNIA REPAIRS, left shoulder repair Past Anesthesia/Blood Transfusion Reactions: No Reported Reaction Past Psychological History: Anxiety, Depression Smoking Status: Former smoker Past Alcohol Use History: None Reported Past Drug Use History: None Reported - Past Family History Father Family Medical History: Diabetes Mellitus, Myocardial Infarction ([place]) Additional Family Medical History / Comment(s): AT AGE 62 FROM [place] Mother Family Medical History: Diabetes Mellitus Additional Family Medical History / Comment(s): IN HER 40'S General Exam Limitations: altered mental status General appearance: alert, in no apparent distress Head exam: Present: atraumatic, normocephalic, normal inspection Eye exam: Present: normal appearance, PERRL, EOMI. Absent: scleral icterus, conjunctival injection, periorbital swelling ENT exam: Present: normal exam, mucous membranes moist Neck exam: Present: normal inspection. Absent: tenderness, meningismus, lymphadenopathy Respiratory exam: Present: normal lung sounds bilaterally. Absent: respiratory distress, wheezes, rales, rhonchi, stridor Cardiovascular Exam: Present: regular rate, normal rhythm, normal heart sounds. Absent: systolic murmur, diastolic murmur, rubs, gallop, clicks GI/Abdominal exam: Present: soft, normal bowel sounds. Absent: distended, tenderness, guarding, rebound, rigid Extremities exam: Present: normal inspection, full ROM, normal capillary refill. Absent: tenderness, pedal edema, joint swelling, calf tenderness Back exam: Present: normal inspection Neurological exam: Present: alert, oriented X3, CN II-XII intact Psychiatric exam: Present: normal affect, normal mood Skin exam: Present: warm, dry, intact, normal color. Absent: rash Course Vital Signs 01/16/20 15:15 Temperature 98.8 F Pulse Rate 65 Respiratory 18 Rate Blood Pressure 135/68 O2 Sat by Pulse 96 Oximetry - Reevaluation(s) Reevaluation #1: 01/16/20 17:05 Medical records reviewed including ER visit Reevaluation #2: 01/16/20 17:05 Patient has been made medically clear for psychiatric evaluation Medical Decision Making - Medical Decision Making 74 male for psychiatric evaluation known he for inpatient hospitalization family would like to take patient home, patient is discharged - Lab Data Result diagrams: 01/16/20 15:49 01/16/20 15:49 Lab Results 01/16/20 01/16/20 Range/Units 15:49 15:49 WBC 7.7 (3.8-10.6) k/uL RBC 5.52 (4.30-5.90) m/uL Hgb 16.1 (13.0-17.5) gm/dL Hct 49.4 (39.0-53.0) % MCV 89.5 (80.0-100.0) fL MCH 29.1 (25.0-35.0) pg MCHC 32.5 (31.0-37.0) g/dL RDW 14.4 (11.5-15.5) % Plt Count 209 (150-450) k/uL Neutrophils % 64 % Lymphocytes % 27 % Monocytes % 5 % Eosinophils % 2 % Basophils % 1 % Neutrophils # 4.9 (1.3-7.7) k/uL Lymphocytes # 2.1 (1.0-4.8) k/uL Monocytes # 0.4 (0-1.0) k/uL Eosinophils # 0.2 (0-0.7) k/uL Basophils # 0.1 (0-0.2) k/uL Sodium 138 (137-145) mmol/L Potassium 4.0 (3.5-5.1) mmol/L Chloride 104 (98-107) mmol/L Carbon Dioxide 22 (22-30) mmol/L Anion Gap 12 mmol/L BUN 19 (9-20) mg/dL Creatinine 1.19 (0.66-1.25) mg/dL Est GFR (CKD-EPI)AfAm 69 (>60 ml/min/1.73 sqM) Est GFR (CKD-EPI)NonAf 60 (>60 ml/min/1.73 sqM) Glucose 210 H (74-99) mg/dL Calcium 9.8 (8.4-10.2) mg/dL Salicylates <1.0 mg/dL Acetaminophen <10.0 ug/mL Serum Alcohol <10 mg/dL Disposition Clinical Impression: Altered mental status, Dementia Disposition: HOME SELF-CARE Condition: Good Instructions (If sedation given, give patient instructions): Dementia (ED) Is patient prescribed a controlled substance at d/c from ED?: No Referrals: Alessandro Lyon MD [Primary Care Provider] - 1-2 days
== END 2020-01-16 18:16 | disposition home or self-care (01) ==
LOC: EC 15:11
DX: F03.90 Unspecified dementia, unspecified severity, without behavioral disturbance, psychotic disturbance, mood disturbance, and anxiety (principal); R41.82 Altered mental status, unspecified; I10 Essential (primary) hypertension; E78.5 Hyperlipidemia, unspecified; G47.30 Sleep apnea, unspecified; E11.9 Type 2 diabetes mellitus without complications; F41.9 Anxiety disorder, unspecified; F32.9 Major depressive disorder, single episode, unspecified; M19.90 Unspecified osteoarthritis, unspecified site; Z79.899 Other long term (current) drug therapy; Z79.82 Long term (current) use of aspirin; Z79.01 Long term (current) use of anticoagulants; Z91.041 Radiographic dye allergy status; Z88.8 Allergy status to other drugs, medicaments and biological substances; Z99.89 Dependence on other enabling machines and devices; Z96.653 Presence of artificial knee joint, bilateral; Z96.643 Presence of artificial hip joint, bilateral; Z87.891 Personal history of nicotine dependence
CPT/HCPCS: 82075; 36415; 80048; 85025; 83520; 99285; G0480 ×2; 80320; 80329

== ENCOUNTER 2023-08-08 07:49 | Emergency (ER) | payer MEDICARE ==
--- NOTE | 2023-08-08 08:02 | ED ---
General Adult HPI - General Stated complaint: Clogged ng tube Time Seen by Provider: 08/08/23 07:52 Source: patient, EMS, RN notes reviewed Mode of arrival: EMS Limitations: altered mental status - History of Present Illness Initial comments: Patient is a pleasant 77-year-old male presenting to the emergency department with concerns for clogged feeding tube. Patient has feeding tube placed secondary to history of dementia and Parkinson's and no longer eating. Patient is a line on this for nutrition. Patient is unable to provide additional history beyond this. Patient denies any complaints otherwise. - Related Data Home Medications Medication Instructions Recorded Confirmed Divalproex ER [Depakote ER] 1,000 mg PO HS 08/15/16 01/13/20 Mirabegron [Myrbetriq] 50 mg PO HS 08/15/16 01/13/20 Atorvastatin [Lipitor] 20 mg PO HS 09/01/16 01/13/20 Aspirin 81 mg PO DAILY 10/13/16 01/13/20 Rivaroxaban [Xarelto] 20 mg PO DAILY@1700 10/13/16 01/13/20 Pregabalin [Lyrica] 75 mg PO BID 04/21/19 01/13/20 QUEtiapine [SEROquel] 150 mg PO HS 04/21/19 01/13/20 hydroCHLOROthiazide [Hydrodiuril] 25 mg PO DAILY 04/21/19 01/13/20 Canagliflozin [Invokana] 300 mg PO DAILY 01/13/20 01/13/20 Previous Rx's Medication Instructions Recorded Multivitamins, Thera [Multivitamin 1 tab PO DAILY #1 tablet 10/17/16 (formulary)] amLODIPine [Norvasc] 10 mg PO DAILY #0 tab 10/17/16 Allergies Allergy/AdvReac Type Severity Reaction Status Date / Time Iodinated Contrast Media Allergy Unknown Verified 08/08/23 08:02 [Iodinated Contrast Media - Oral and] donepezil [From Aricept] AdvReac psychiatric Verified 08/08/23 08:02 Review of Systems ROS Statement: Those systems with pertinent positive or pertinent negative responses have been documented in the HPI. ROS Other: All systems not noted in ROS Statement are negative. Limitations: ROS unobtainable due to patients medical condition Past Medical History Past Medical History: COPD, Dementia, Diabetes Mellitus, Deep Vein Thrombosis (DVT), Hyperlipidemia, Hypertension, Memory Impairment, Osteoarthritis (OA), Prostate Disorder, Sleep Apnea/CPAP/BIPAP Additional Past Medical History / Comment(s): DVT AFTER KNEE SX,ENLARGED PROSTATE, EARLY DEMENTIA," SHORT TERM MEMORY PROBLEMS", PAST FALL HIT HEAD", PER PAST ADMIT FOR ACUTE KIDNEY FAILURE-SEES A KIDNEY . SINUS/SEASONAL ALLERGY, GOUT, SLEEP APNEA BUT ABLE TO USE CPAP/MASK DOES'NT FIT. History of Any Multi-Drug Resistant Organisms: None Reported Past Surgical History: Hernia Repair, Joint Replacement, Orthopedic Surgery Additional Past Surgical History / Comment(s): nasal, bilateral knee REPLACMENTS, CARIDAD HIP REPLACEMENTS, RT CARPAL TUNNEL,CARIDAD INGUINAL HERNIA REPAIRS, left shoulder repair Past Anesthesia/Blood Transfusion Reactions: No Reported Reaction Past Psychological History: Anxiety, Depression Past Alcohol Use History: None Reported Past Drug Use History: None Reported - Past Family History Father Family Medical History: Diabetes Mellitus, Myocardial Infarction ([place]) Additional Family Medical History / Comment(s): AT AGE 62 FROM [place] Mother Family Medical History: Diabetes Mellitus Additional Family Medical History / Comment(s): IN HER 40'S General Exam Limitations: altered mental status General appearance: alert, in no apparent distress Head exam: Present: atraumatic Eye exam: Present: normal appearance ENT exam: Present: normal oropharynx Neck exam: Present: normal inspection Respiratory exam: Present: normal lung sounds bilaterally Cardiovascular Exam: Present: regular rate, normal rhythm GI/Abdominal exam: Present: soft. Absent: tenderness Extremities exam: Present: normal inspection Neurological exam: Present: alert Psychiatric exam: Present: normal affect, normal mood Skin exam: Present: normal color Course Vital Signs 08/08/23 08/08/23 07:51 08:23 Temperature 97.4 F L Pulse Rate 59 L 60 Respiratory 18 18 Rate Blood Pressure 152/105 128/61 O2 Sat by Pulse 97 95 Oximetry Medical Decision Making - Medical Decision Making Was pt. sent in by a medical professional or institution (Dr. PA, VB NET DEVELOPER, urgent care, hospital, or [facility]...) When possible be specific @ -Patient was sent from nursing facility Did you speak to anyone other than the patient for history (EMS, parent, family, police, friend...)? What history was obtained from this source @ -EMS provides history as patient is relatively nonverbal Did you review nursing and triage notes (agree or disagree)? Why? @ -I reviewed and agree with nursing and triage notes Were old charts reviewed (outside hosp., previous admission, EMS record, old EKG, old radiological studies, urgent care reports/EKG's, ch[facility] records)? Report findings @ -Limited chart reviewed from nursing facility Differential Diagnosis (chest pain, altered mental status, abdominal pain women, abdominal pain men, vaginal bleeding, weakness, fever, dyspnea, syncope, headache, dizziness, GI bleed, back pain, seizure, CVA, palpatations, mental health, musculoskeletal)? @ -Differential Abdominal Pain Men: Appendicitis, cholecystitis, diverticulosis, ischemic bowel, pancreatitis, hepatitis, UTI, gastroenteritis, AAA, incarcerated hernia, bowel obstruction, constipation, inflammatory bowel, hepatitis, peptic ulcer disease, splenic infarction, perforated viscus, testicular torsion, this is not meant to be an all-inclusive list EKG interpreted by me (3pts min.). @ -As above X-rays interpreted by me (1pt min.). @ -None done CT interpreted by me (1pt min.). @ -None done U/S interpreted by me (1pt. min.). @ -None done What testing was considered but not performed or refused? (CT, X-rays, U/S, labs)? Why? @ -None What meds were considered but not given or refused? Why? @ -None Did you discuss the management of the patient with other professionals (professionals i.e. , PA, VB NET DEVELOPER, lab, RT, psych nurse, social services specialist, gamma facilities operator, teacher, chief contract officer, case monitor)? Give summary @ -Case discussed with Dr. Lockett at [facility] will accept transfer Was smoking cessation discussed for >3mins.? @ -No Was critical care preformed (if so, how long)? @ -No Were there social determinants of health that impacted care today? How? (Homelessness, low income, unemployed, alcoholism, drug addiction, transportation, low edu. Level, literacy, decrease access to med. care, fci, rehab)? @ -No Was there de-escalation of care discussed even if they declined (Discuss DNR or withdrawal of care, Hospice)? DNR status @ -No What co-morbidities impacted this encounter? (DM, HTN, Smoking, COPD, CAD, Cancer, CVA, ARF, Chemo, Hep., AIDS, mental health diagnosis, sleep apnea, morbid obesity)? @ -None Was patient admitted / discharged? Hospital course, mention meds given and route, prescriptions, significant lab abnormalities, going to OR and other pertinent info. @ -Patient was reportedly to be transferred to [facility] however did end up here. Family refuses to let patient have any care done here. Patient refuses to have our feeding tube was used for the patient and states that he specifically needs Corpac feeding tube that is not available here. This is confirmed. Patient will be transferred to [facility]. Feeding tube was attempted to be flushed without success by nursing staff. Undiagnosed new problem with uncertain prognosis? @ -No Drug Therapy requiring intensive monitoring for toxicity (Heparin, Nitro, Insulin, Cardizem)? @ -No Were any procedures done? @ -No Diagnosis/symptom? @ -Feeding tube malfunction Acute, or Chronic, or Acute on Chronic? @ -Acute Uncomplicated (without systemic symptoms) or Complicated (systemic symptoms)? @ -default Side effects of treatment? @ -No Exacerbation, Progression, or Severe Exacerbation? @ -No Poses a threat to life or bodily function? How? (Chest pain, [place], [place], pneumonia, PE, COPD, DKA, ARF, appy, cholecystitis, CVA, Diverticulitis, Homicidal, Suicidal, threat to staff... and all critical care pts) @ -No Disposition Clinical Impression: Feeding tube dysfunction Disposition: OTHER INSTITUTION NOT DEFINED Condition: Stable Is patient prescribed a controlled substance at d/c from ED?: No Referrals: Alessandro Lyon MD [Primary Care Provider] - 1-2 days Time of Disposition: 08:33 - Out of Hospital Transfer - Req. Specs Out of Hospital Transfer - Requested Specifics: Other Emergency Center
[2023-08-08 08:09] VITALS: RESP 18; TEMP 97.4
[2023-08-08 08:36] VITALS: BP 128/61; PULSE 60
== END 2023-08-08 09:49 | disposition other institution (70) ==
LOC: EC 07:49
DX: K94.23 Gastrostomy malfunction (principal); I10 Essential (primary) hypertension; J44.9 Chronic obstructive pulmonary disease, unspecified; E11.9 Type 2 diabetes mellitus without complications; E78.5 Hyperlipidemia, unspecified; G47.30 Sleep apnea, unspecified; M19.90 Unspecified osteoarthritis, unspecified site; F41.9 Anxiety disorder, unspecified; F32.A Depression, unspecified; Z79.01 Long term (current) use of anticoagulants; Z79.84 Long term (current) use of oral hypoglycemic drugs; Z79.899 Other long term (current) drug therapy; Z88.8 Allergy status to other drugs, medicaments and biological substances; Z91.041 Radiographic dye allergy status
CPT/HCPCS: 99284

== ENCOUNTER 2023-08-29 07:58 | Emergency (ER) | payer MEDICARE ==
--- NOTE | 2023-08-29 08:31 | ED ---
General Adult HPI - General Chief complaint: Recheck/Abnormal Lab/Rx Stated complaint: NG2 clogged Time Seen by Provider: 08/29/23 08:01 Source: EMS, RN notes reviewed Mode of arrival: EMS Limitations: altered mental status - History of Present Illness Initial comments: 77-year-old male with past medical history of Parkinson's disease presents to the emergency department for a clogged NG tube. Patient presents from [facility]. Patient's states he had the NG tube placed at [facility]. She states all his care has been through there. She reports he has a Corpak and it is not something we carry. The care home has been trying to dislodge the occlusion in the NG tube since 3 AM without success. is requesting transport to [facility] but does agree twist trying to flush the NG tube one more time.Patient has no other complaints at this time including shortness of breath, chest pain, abdominal pain, nausea or vomiting, headache, or visual changes.. - Related Data Home Medications Medication Instructions Recorded Confirmed Divalproex ER [Depakote ER] 1,000 mg PO HS 08/15/16 01/13/20 Mirabegron [Myrbetriq] 50 mg PO HS 08/15/16 01/13/20 Atorvastatin [Lipitor] 20 mg PO HS 09/01/16 01/13/20 Aspirin 81 mg PO DAILY 10/13/16 01/13/20 Rivaroxaban [Xarelto] 20 mg PO DAILY@1700 10/13/16 01/13/20 Pregabalin [Lyrica] 75 mg PO BID 04/21/19 01/13/20 QUEtiapine [SEROquel] 150 mg PO HS 04/21/19 01/13/20 hydroCHLOROthiazide [Hydrodiuril] 25 mg PO DAILY 04/21/19 01/13/20 Canagliflozin [Invokana] 300 mg PO DAILY 01/13/20 01/13/20 Previous Rx's Medication Instructions Recorded Multivitamins, Thera [Multivitamin 1 tab PO DAILY #1 tablet 10/17/16 (formulary)] amLODIPine [Norvasc] 10 mg PO DAILY #0 tab 10/17/16 Allergies Allergy/AdvReac Type Severity Reaction Status Date / Time Iodinated Contrast Media Allergy Unknown Verified 08/08/23 08:02 [Iodinated Contrast Media - Oral and] donepezil [From Aricept] AdvReac psychiatric Verified 08/08/23 08:02 risperidone AdvReac Unknown Verified 08/29/23 08:08 Review of Systems ROS Statement: Those systems with pertinent positive or pertinent negative responses have been documented in the HPI. ROS Other: All systems not noted in ROS Statement are negative. Past Medical History Past Medical History: COPD, Dementia, Diabetes Mellitus, Deep Vein Thrombosis (DVT), Hyperlipidemia, Hypertension, Memory Impairment, Osteoarthritis (OA), Prostate Disorder, Sleep Apnea/CPAP/BIPAP Additional Past Medical History / Comment(s): DVT AFTER KNEE SX,ENLARGED PROSTATE, EARLY DEMENTIA," SHORT TERM MEMORY PROBLEMS", PAST FALL HIT HEAD", PER PAST ADMIT FOR ACUTE KIDNEY FAILURE-SEES A KIDNEY . SINUS/SEASONAL ALLERGY, GOUT, SLEEP APNEA BUT ABLE TO USE CPAP/MASK DOES'NT FIT. History of Any Multi-Drug Resistant Organisms: None Reported Past Surgical History: Hernia Repair, Joint Replacement, Orthopedic Surgery Additional Past Surgical History / Comment(s): nasal, bilateral knee REPLACMENTS, CARIDAD HIP REPLACEMENTS, RT CARPAL TUNNEL,CARIDAD INGUINAL HERNIA REPAIRS, left shoulder repair Past Anesthesia/Blood Transfusion Reactions: No Reported Reaction Past Psychological History: Anxiety, Depression Smoking Status: Never smoker Past Alcohol Use History: None Reported Past Drug Use History: None Reported - Past Family History Father Family Medical History: Diabetes Mellitus, Myocardial Infarction ([place]) Additional Family Medical History / Comment(s): AT AGE 62 FROM [place] Mother Family Medical History: Diabetes Mellitus Additional Family Medical History / Comment(s): IN HER 40'S General Exam Limitations: altered mental status General appearance: alert, in no apparent distress Head exam: Present: atraumatic Eye exam: Present: normal appearance ENT exam: Present: mucous membranes moist, other (NG tube in place) Neck exam: Present: normal inspection, full ROM Respiratory exam: Present: normal lung sounds bilaterally. Absent: respiratory distress Cardiovascular Exam: Present: regular rate, normal rhythm, normal heart sounds Course Vital Signs 08/29/23 08:01 Temperature 98.0 F Pulse Rate 56 L Respiratory 18 Rate Blood Pressure 119/102 O2 Sat by Pulse 96 Oximetry Medical Decision Making - Medical Decision Making Was pt. sent in by a medical professional or institution (, PA, ENGLISH COMPOSITION INSTRUCTOR, urgent care, hospital, or care home...) When possible be specific @ -No Did you speak to anyone other than the patient for history (EMS, parent, family, police, friend...)? What history was obtained from this source @ -family Did you review nursing and triage notes (agree or disagree)? Why? @ -I reviewed and agree with nursing and triage notes Were old charts reviewed (outside hosp., previous admission, EMS record, old EKG, old radiological studies, urgent care reports/EKG's, care home records)? Report findings @ -past visit reviewed Differential Diagnosis (chest pain, altered mental status, abdominal pain women, abdominal pain men, vaginal bleeding, weakness, fever, dyspnea, syncope, headache, dizziness, GI bleed, back pain, seizure, CVA, palpatations, mental health)? @ -NG tube malplacement, NG tube obstruction EKG interpreted by me (3pts min.). @ -none X-rays interpreted by me (1pt min.). @ -None done CT interpreted by me (1pt min.). @ -None done U/S interpreted by me (1pt. min.). @ -None done What testing was considered but not performed or refused? (CT, X-rays, U/S, labs)? Why? @ -None What meds were considered but not given or refused? Why? @ -None Did you discuss the management of the patient with other professionals (professionals i.e. , PA, ENGLISH COMPOSITION INSTRUCTOR, lab, RT, psych nurse, social service coordinator, explosives detonator, teacher, sergeant of officers, case work aide)? Give summary @ -[facility] physician Was smoking cessation discussed for >3mins.? @ -No Was critical care preformed (if so, how long)? @ -No Were there social determinants of health that impacted care today? How? (Homelessness, low income, unemployed, alcoholism, drug addiction, transportation, low edu. Level, literacy, decrease access to med. care, halfway, rehab)? @ -No Was there de-escalation of care discussed even if they declined (Discuss DNR or withdrawal of care, Hospice)? DNR status @ -No What co-morbidities impacted this encounter? (DM, HTN, Smoking, COPD, CAD, Cancer, CVA, ARF, Chemo, Hep., AIDS, mental health diagnosis, sleep apnea, morbid obesity)? @ -Parkinson's disease Was patient admitted / discharged? Hospital course, mention meds given and route, prescriptions, significant lab abnormalities, going to OR and other pertinent info. @ -[The patient was brought to [facility] by EMS from care home. He has clogged NG tube. Attempted to unclog this here in the emergency room without success. Offered replacement however states patient has a Corpak which we do not carry and she does not want any further care through this hospital. She requests transport down to [facility]. Undiagnosed new problem with uncertain prognosis? @ -No Drug Therapy requiring intensive monitoring for toxicity (Heparin, Nitro, Insulin, Cardizem)? @ -No Were any procedures done? @ -Attempted flushing of the NG tube by nursing staff Diagnosis/symptom? @ -Clogged NG tube Acute, or Chronic, or Acute on Chronic? @ -Acute Uncomplicated (without systemic symptoms) or Complicated (systemic symptoms)? @ -Uncomplicated Side effects of treatment? @ -No Exacerbation, Progression, or Severe Exacerbation? @ -No Poses a threat to life or bodily function? How? (Chest pain, [place], [place], pneumonia, PE, COPD, DKA, ARF, appy, cholecystitis, CVA, Diverticulitis, Homicidal, Suicidal, threat to staff... and all critical care pts) @ -No Disposition Clinical Impression: Obstruction of nasogastric tube Disposition: OTHER INSTITUTION NOT DEFINED Condition: Good Is patient prescribed a controlled substance at d/c from ED?: No Referrals: Alessandro Lyon MD [Primary Care Provider] - 1-2 days Time of Disposition: 09:24 - Out of Hospital Transfer - Req. Specs Out of Hospital Transfer - Requested Specifics: Other Emergency Center ([facility])
[2023-08-29 08:32] VITALS: PULSE 56; RESP 18; TEMP 98
[2023-08-29] MEDS: MORPHINE SULFATE 2 MG/ML SYRINGE IM STA (09:51)
[2023-08-29 09:57] LABS: Glucose,Whole Blood 114 mg/dL (70-110)
[2023-08-29 10:02] VITALS: BP 125/79
== END 2023-08-29 09:57 | disposition other institution (70) ==
LOC: EC 07:58
DX: K94.23 Gastrostomy malfunction (principal); E11.9 Type 2 diabetes mellitus without complications; E78.5 Hyperlipidemia, unspecified; J44.9 Chronic obstructive pulmonary disease, unspecified; G47.30 Sleep apnea, unspecified; I10 Essential (primary) hypertension; M19.90 Unspecified osteoarthritis, unspecified site; F41.9 Anxiety disorder, unspecified; F32.A Depression, unspecified; Z79.01 Long term (current) use of anticoagulants; Z79.84 Long term (current) use of oral hypoglycemic drugs; Z79.899 Other long term (current) drug therapy; Z79.82 Long term (current) use of aspirin; Z88.8 Allergy status to other drugs, medicaments and biological substances; Z91.041 Radiographic dye allergy status
CPT/HCPCS: 36415; 99284; 96372; J2270